=== PATIENT | male | born 1955 | race Caucasian/White ===

== ENCOUNTER 2018-03-13 18:24 | Outpatient (REF) | payer OTHER, MEDICARE, SELFPAY ==
[2018-03-13 20:33] LABS: Bilirubin Negative (Negative); Blood Negative (Negative); Clarity Clear; Glucose Negative (Negative); Ketones Negative (Negative); Leukocyte Esterase Negative (Negative); Nitrite Negative (Negative); Urobilinogen 0.2 EU/dL (Up TO 0.2)
== END 2018-03-13 18:44 ==
LOC: NCHCN 18:24
PROVIDERS: PCP Nurse Practitioner; Visit Provider Nurse Practitioner Family
DX: R31.0 Gross hematuria (principal)
CPT/HCPCS: 81003

== ENCOUNTER 2018-04-27 11:56 | Outpatient (REF) | payer OTHER, SELFPAY ==
[2018-04-27 13:40] LABS: ALT 31 U/L (12-78); AST 29 U/L (15-37); Albumin 3.9 g/dL (3.4-5.0); Alkaline Phosphatase 62 U/L (46-116); Anion Gap 9.1 mmol/L (3-11); BUN 23 mg/dL (7-18); Bilirubin, Total 0.5 mg/dL (0.2-1.0); CO2 26.9 mmol/L (21.0-32.0); CREATININE 1.21 mg/dL (0.70-1.30); Calcium 9.8 mg/dL (8.5-10.1); Chloride 104 mmol/L (98-107); Cholesterol 145 mg/dL (50-200); Glucose 126 mg/dL (70-100); HDL Cholesterol 43 mg/dL (40-60); LDL CHOLESTEROL 92 mg/dL (<100); Potassium 4.1 mmol/L (3.5-5.1); Sodium 140 mmol/L (136-145); Total Protein 6.9 g/dL (6.4-8.2); Triglyceride 87 mg/dL (30-150)
== END 2018-04-27 12:16 ==
LOC: NCHCN 11:56
PROVIDERS: PCP Nurse Practitioner; Visit Provider Nurse Practitioner
DX: I10 Essential (primary) hypertension (principal); E78.5 Hyperlipidemia, unspecified
CPT/HCPCS: 80053; 80061; 83721

== ENCOUNTER → 2019-01-17 15:01 | Outpatient (BNVA) | payer MEDICARE, OTHER, SELFPAY | PROVIDERS: PCP Nurse Practitioner; Visit Provider Psychiatry & Neurology Neurology | DX: G62.89 Other specified polyneuropathies (principal); I10 Essential (primary) hypertension | CPT/HCPCS: 99213 ==

== ENCOUNTER 2019-04-24 09:54 | Outpatient (REF) | payer MEDICARE, OTHER, SELFPAY ==
[2019-04-24 12:45] LABS: ALT 30 U/L (16-63); AST 22 U/L (15-37); Albumin 3.9 g/dL (3.4-5.0); Alkaline Phosphatase 62 U/L (46-116); Anion Gap 11.2 mmol/L (3-11); BUN 18 mg/dL (7-18); Bilirubin, Total 0.5 mg/dL (0.2-1.0); CO2 26.8 mmol/L (21.0-32.0); CREATININE 1.17 mg/dL (0.70-1.30); Calcium 9.8 mg/dL (8.5-10.1); Calculated LDL 102 mg/dL; Chloride 106 mmol/L (98-107); Cholesterol 170 mg/dL (<200); Glucose 113 mg/dL (74-106); HDL Cholesterol 44 mg/dL (40-60); Potassium 4.3 mmol/L (3.5-5.1); Sodium 144 mmol/L (136-145); Total Protein 6.9 g/dL (6.4-8.2); Triglyceride 123 mg/dL (<150)
[2019-04-24 13:01] LABS: Hemoglobin A1C 5.7 % (4.5-6.2)
[2019-04-25 16:06] LABS: PSA, Screening 3.5 ng/mL (0.0-4.5)
== END 2019-04-24 10:14 ==
LOC: NCHCN 09:54
PROVIDERS: PCP Nurse Practitioner; Visit Provider Nurse Practitioner
DX: I10 Essential (primary) hypertension (principal); E78.5 Hyperlipidemia, unspecified; Z13.1 Encounter for screening for diabetes mellitus; Z12.5 Encounter for screening for malignant neoplasm of prostate; F32.9 Major depressive disorder, single episode, unspecified; R73.09 Other abnormal glucose; L40.8 Other psoriasis
CPT/HCPCS: 80053; 80061; 82306; 84153; 83036

== ENCOUNTER 2019-04-24 12:07 | Outpatient (CLI) | payer MEDICARE, OTHER, SELFPAY ==
--- NOTE | 2019-04-24 09:49 | DI.RAD_ITS ---
EXAM: XR CERVICAL SPINE COMP 4-5V INDICATION: CERVICALGIA, M54.2. COMPARISON: No exams were available for comparison TECHNIQUE: 2D digital imaging was performed. FINDINGS: The odontoid is intact. The lateral masses are well aligned. Moderate degenerative changes are pres ent throughout the cervical spine. The findings are most marked at C4-5, C5-6 and C6-C7. There are degenerative changes of the facets throughout the cervical spine. There is moderate narrowing of the left neural foramen at C3-C4. There is narrowing of the neural foramen on the right at C6-C7. No a cute fracture or subluxation is seen in the cervical spine. The prevertebral soft tissues are unrema rkable. Soft tissue calcifications are seen in the neck most consistent with atherosclerosis. IMPRESSION: Moderate degenerative changes in the cervical spine.
== END 2019-04-24 12:27 ==
PROVIDERS: PCP Nurse Practitioner; Visit Provider Nurse Practitioner
DX: M54.2 Cervicalgia (principal); M50.321 Other cervical disc degeneration at C4-C5 level; M50.322 Other cervical disc degeneration at C5-C6 level; M50.323 Other cervical disc degeneration at C6-C7 level; M47.812 Spondylosis without myelopathy or radiculopathy, cervical region
CPT/HCPCS: 72050

== ENCOUNTER 2019-08-07 07:16 | Outpatient (CLI) | payer MEDICARE, OTHER, SELFPAY ==
--- NOTE | 2019-08-07 10:33 | DI.RAD_ITS ---
EXAM: RF BARIUM SWALLOW CLINICAL HISTORY: GASTROINTESTINAL BLEED, K92.2, DYSPHAGIA, R13.10 TECHNIQUE: 2D and realtime digital imaging was performed. CONTRAST MATERIAL: Oral barium contrast was administered. COMPARISON: No exams were available for comparison FINDINGS: CHEST X-RAY: The heart and pulmonary vasculature are within normal limits. The lungs are clear. No pl eural effusion or pneumothorax is present. The bones are within normal limits fo the patient's age. N ote is made of a nerve stimulator device. There are surgical clips at the gastroesophageal junction. ESOPHAGRAM: The esophagus is patent with no evidence for erosions, fold thickening, strictures, or ma sses. With regards to the motility, there is a normal primary stripping wave. No tertiary contraction s were noted. There is no gastroesophageal reflux. Postsurgical changes of a fundoplication are pres ent. IMPRESSION: No evidence of gastroesophageal reflux or hiatal hernia. Postsurgical changes at the gastroesophageal junction.
[2019-08-07] MEDS: Barium Sulfate 60% W/V 355 ML BTL PO (10:39)
== END 2019-08-07 07:36 ==
PROVIDERS: PCP Nurse Practitioner; Visit Provider Internal Medicine Gastroenterology
DX: K92.2 Gastrointestinal hemorrhage, unspecified (principal); R13.19 Other dysphagia
CPT/HCPCS: 74221; J3490

== ENCOUNTER 2020-01-09 15:07 | Emergency (ER) | payer MEDICARE, OTHER, SELFPAY ==
[2020-01-09 15:10] VITALS: BP 169/76; PULSE 110; TEMP 36.6; O2SAT 98
--- NOTE | 2020-01-09 15:15 | ED.GENADUL_ITS ---
Discharge Plan Disposition Patient Disposition: HOME Condition: Stable Discharge Details Chief Complaint: Laceration Clinical Impression: Finger laceration Primary Care Provider: Mady Rivas ED Provider: Michelle Rosales Home Meds and New Rx's Prescriptions: Continued omeprazole 20 mg capsule,delayed release(DR/EC) 40 mg PO DAILY RF: 0 multivitamin [Daily Multi-Vitamin] 1 EACH tablet 1 ea PO DAILY RF: 0 amoxicillin 500 MG capsule 2,000 mg PO PRN DENTAL RF: 0 magnesium oxide 400 MG tablet 400 mg PO DAILY RF: 0 Glucosamine Complex-MSM 1 EACH capsule 1 ea PO DAILY RF: 0 cholecalciferol (vitamin D3) 2,000 UNIT tablet 2,000 unit PO DAILY RF: 0 calcium carbonate-vitamin D3 1 EACH capsule 1 ea PO DAILY RF: 0 cyanocobalamin (vitamin B-12) 2,500 MCG tablet,chewable 1,000 mcg PO DAILY RF: 0 MEDICAL MARIJUANA Inhalation PRN RF: 0 thiamine HCl (vitamin B1) [Vitamin B-1] 100 MG tablet 100 mg PO DAILY RF: 0 lovastatin 40 MG tablet 40 mg PO HS RF: 0 acyclovir 400 MG tablet 800 mg PO DAILY RF: 0 triamcinolone acetonide 15 GM ointment 1 ea Topical DIRECTED PRNRF: 0 hydrochlorothiazide 25 MG tablet 12.5 mg PO DAILY RF: 0 celecoxib [Celebrex] 400 MG capsule 400 mg PO DAILY RF: 0 duloxetine [Cymbalta] 60 MG capsule,delayed release(DR/EC) 60 mg PO BID RF: 0 aspirin [Aspir-81] 81 mg Tablet,Delayed Release (Dr/Ec) 81 mg PO DAILY RF: 0 sildenafil 100 mg tablet 100 mg PO DIRECTED PRNRF: 0 tamsulosin 0.4 mg capsule 0.4 mg PO DAILY RF: 0 quetiapine [Seroquel] 50 MG tablet 50 mg PO HS RF: 0 Discharge Instructions Instructions: Finger Laceration (ED) Additional Instructions: Keep wound clean and dry. Cover wound with bandage if risk of contamination. Otherwise you can keep the wound open to air if resting at home to allow edges to dry and heal. Return to the emergency department in 7 days for suture removal. You can follow-up with your primary care doctor or return to the emergency department anytime if you develop any worsening or new concerning symptoms such as fever, increased pain, redness or swelling. Discharge Data Discharge Date/Time-TO BE ENTERED AT DEPARTURE: 01/09/20 15:54 Discharge Physician: Michelle Rosales Medical Decision Making 64-year-old male presents with left second finger laceration after pinched within his lawnmower 3 hours ago at home. Tetanus up-to-date. He has a 2 cm straight linear laceration noted on volar aspect of left second f yomi near lateral proximal aspect near base of finger. No bony deformity. Patient offered x-ray but declined stating he feels that this is just a skin laceration. Wound irrigated well and explored and no evidence of foreign body, tendon or neurovascular injury. Area anesthetized with 5 cc 1% lidocaine without epinephrine. 3 nylon 5-0 sutures placed. Wound covered with bacitracin and dressing. Advised to return to the ED in 7 days for suture removal. Usual and customary return precautions given prior to discharge. Medical Records Medical records reviewed: Yes I reviewed the patient's medical records. HPI General Mode of arrival: ambulatory . Date/Time Provider Initiated Documentation: 01/09/20 15:08 . Limitations to Documentation: no limitations . Information obtained by: patient . HPI Narrative: Patient is a 64-year-old male presents with left second finger laceration after his finger was pinched within his lawnmower 3 hours ago at home. He states he pulled his finger back and it caused the laceration. He denies any bony injury or pain. Tetanus up-to-date 2018. Related Data Home Medications Medication Instructions Recorded Confirmed acyclovir 800 mg PO DAILY 09/13/12 01/09/20 celecoxib [Celebrex] 400 mg PO DAILY 09/13/12 01/09/20 duloxetine [Cymbalta] 60 mg PO BID 09/13/12 01/09/20 hydrochlorothiazide 12.5 mg PO DAILY 09/13/12 01/09/20 lovastatin 40 mg PO HS 09/13/12 01/09/20 triamcinolone acetonide 1 ea TOPICAL DIRECTED PRN 09/13/12 01/09/20 Glucosamine Complex-MSM 1 ea PO DAILY 01/16/18 01/09/20 amoxicillin 2,000 mg PO PRN DENTAL tab-cap 01/16/18 01/09/20 calcium carbonate-vitamin D3 1 ea PO DAILY 01/16/18 01/09/20 cholecalciferol (vitamin D3) 2,000 unit PO DAILY 01/16/18 01/09/20 cyanocobalamin (vitamin B-12) 1,000 mcg PO DAILY tab.chew 01/16/18 01/09/20 magnesium oxide 400 mg PO DAILY 01/16/18 01/09/20 multivitamin [Daily Multi-Vitamin] 1 ea PO DAILY 01/16/18 01/09/20 thiamine HCl (vitamin B1) [Vitamin 100 mg PO DAILY 01/16/18 01/09/20 B-1] omeprazole 20 mg capsule,delayed 40 mg PO DAILY 06/11/19 01/09/20 release aspirin [Aspir-81] 81 mg PO DAILY 01/09/20 01/09/20 quetiapine [Seroquel] 50 mg PO HS 01/09/20 01/09/20 sildenafil 100 mg PO DIRECTED PRN 01/09/20 01/09/20 tamsulosin 0.4 mg PO DAILY 01/09/20 01/09/20 Allergies Allergy/AdvReac Type Severity Reaction Status Date / Time gluten AdvReac Intermediate stomach Unverified 06/11/19 08:46 upset,pain General Stated Complaint: Laceration MARILYNN: 4 Review of Systems All systems reviewed & are unremarkable except as noted in HPI and below PFSH Medical History (Updated 01/09/20 @ 15:46 by Michelle Rosales DO) Celiac disease (Acute) Chronic low back pain (Acute) Chronic pain Depression (Chronic) Hypercholesterolemia Hypertension Osteoarthritis (Chronic) Peripheral neuropathy (Acute 04/15/14) Personal history of colonic polyps (Acute 01/04/13) Psoriasis (Chronic) Surgical History Hemorrhoidal Banding Hemorrhoidectomy MULTIPLE BACK OPERATIONS NERVE STIMULATOR IMPLANTATION S/P laparoscopic fundoplication (Acute) Total replacement of hip BILATERAL Family History Mother No problems noted. Father No problems noted. Sister No problems noted. Sister No problems noted. Sister No problems noted. Sister No problems noted. Brother No problems noted. Brother No problems noted. Social History (Updated 06/11/19 @ 08:50 by Neda Negron RN) Smoking/Tobacco Use Status: Former Tobacco Use Alcohol Intake: never Drug use: Daily Substance use type: marijuana Household members: spouse Housing: house Number of Children: 3 current occupation: Disabled. Formerly in construction. What is your relationship status?: Panel score (0-1 are the most socially isolated patients): 1 What type of physical activity do you participate in: additional Details: pt tries to stay active Do you feel safe at home: Yes Do you feel safe in your relationship?: Yes Additional Social history: He is raising his grandson (born in 2017). Exam Const General: cooperative, healthy appearing and no acute distress HENMT Head: normal to inspection Mouth: oral mucosae normal Eyes General: appearance normal, both eyes and all related structures Neck Neck: normal visual inspection Resp Effort & Inspection: normal respiratory effort and able to speak in complete sentences Cardio Rate: regular rate Skin General skin exam: no rashes or lesions noted Neuro General: patient alert, patient awake, patient oriented x3 and no focal motor deficits Motor: muscle tone normal throughout Sensory Exam: no sensory deficits noted Extrem General: full ROM and capillary refill normal Hand/finger images: 1. 2 cm straight laceration noted to the lateral aspect of the base of left second finger. There is surrounding ecchymosis but no bony deformity. No tenderness palpation of the digit. There is no edema, erythema or active bleeding. Psych Appearance: grossly normal Affect: normal affect Course Vital Signs Vital signs: Vital Signs Temperature 97.9 F 01/09/20 15:10 Pulse 110 H 01/09/20 15:10 Blood Pressure 169/76 H 01/09/20 15:10 Pulse Oximetry 98 01/09/20 15:10 Temperature 97.9 F 01/09/20 15:10 Temperature Source Temporal Artery Scan 01/09/20 15:10 Pulse 110 H 01/09/20 15:10 Respiratory Effort Non-Labored 01/09/20 15:13 Blood Pressure 169/76 H 01/09/20 15:10 Blood Pressure Position Sitting 01/09/20 15:10 Pulse Oximetry 98 01/09/20 15:10 Oxygen Delivery Method Room Air 01/09/20 15:10 Oxygen Flow Rate 0 01/09/20 15:10 Pain Level 1 01/09/20 15:10 Procedures Laceration Laceration 1: Site: hand Side (If applicable): left Size (cm): 2 Description: linear Depth: simple, single layer Local Anesthetic: Lidocaine 1% and with Epi Amount of anesthesia used (mL): 5 Pre-repair: wound explored, irrigated extensively and deep structures intact Skin layer closed with: nylon Size (cm): 5-0 Number of sutures: 3 Technique: simple, interrupted
== END 2020-01-09 15:54 | disposition home or self-care (01) ==
PROVIDERS: Emergency Provider Physician Assistant; PCP Nurse Practitioner
DX: S61.211A Laceration without foreign body of left index finger without damage to nail, initial encounter (principal); W28.XXXA Contact with powered lawn mower, initial encounter
CPT/HCPCS: 12001

== ENCOUNTER 2020-01-10 18:18 | Emergency (ER) | payer MEDICARE, OTHER, SELFPAY ==
--- NOTE | 2020-01-10 18:22 | ED.GENADUL_ITS ---
Discharge Plan Disposition Patient Disposition: HOME Condition: Stable Discharge Details Chief Complaint: Laceration Clinical Impression: Visit for wound check Primary Care Provider: Mady Rivas ED Provider: Michelle Rosales Home Meds and New Rx's Prescriptions: Continued omeprazole 20 mg capsule,delayed release(DR/EC) 40 mg PO DAILY RF: 0 multivitamin [Daily Multi-Vitamin] 1 EACH tablet 1 ea PO DAILY RF: 0 amoxicillin 500 MG capsule 2,000 mg PO PRN DENTAL RF: 0 magnesium oxide 400 MG tablet 400 mg PO DAILY RF: 0 Glucosamine Complex-MSM 1 EACH capsule 1 ea PO DAILY RF: 0 cholecalciferol (vitamin D3) 2,000 UNIT tablet 2,000 unit PO DAILY RF: 0 calcium carbonate-vitamin D3 1 EACH capsule 1 ea PO DAILY RF: 0 cyanocobalamin (vitamin B-12) 2,500 MCG tablet,chewable 1,000 mcg PO DAILY RF: 0 MEDICAL MARIJUANA Inhalation PRN RF: 0 thiamine HCl (vitamin B1) [Vitamin B-1] 100 MG tablet 100 mg PO DAILY RF: 0 lovastatin 40 MG tablet 40 mg PO HS RF: 0 acyclovir 400 MG tablet 800 mg PO DAILY RF: 0 triamcinolone acetonide 15 GM ointment 1 ea Topical DIRECTED PRNRF: 0 hydrochlorothiazide 25 MG tablet 12.5 mg PO DAILY RF: 0 celecoxib [Celebrex] 400 MG capsule 400 mg PO DAILY RF: 0 duloxetine [Cymbalta] 60 MG capsule,delayed release(DR/EC) 60 mg PO BID RF: 0 aspirin [Aspir-81] 81 mg Tablet,Delayed Release (Dr/Ec) 81 mg PO DAILY RF: 0 sildenafil 100 mg tablet 100 mg PO DIRECTED PRNRF: 0 tamsulosin 0.4 mg capsule 0.4 mg PO DAILY RF: 0 quetiapine [Seroquel] 50 MG tablet 50 mg PO HS RF: 0 Discharge Instructions Instructions: Care For Your Stitches (ED), Acute Wound Care (ED) Additional Instructions: Keep wound clean and dry and covered. Do not remove the Steri-Strips. Return to the ED in 7 days for suture removal. Take antibiotics until finished. Return immediately to the emergency department if you develop any worsening or new concerning symptoms. Discharge Data Discharge Physician: Michelle Rosales Medical Decision Making 64-year-old male 1 day status post #3 suture placement to left second finger presents for wound check after 1 suture inadvertently removed when he took his dressing off today. [address]. Wound appears to have surrounding ecchymosis which was evident yesterday but no evidence of cellulitis. There is approximately 1 to 2 mm of opening where suture had been in place. Discussed with patient that as the wound is over 24 hours old, will not replace suture. Wound was cleaned and a Steri-Strip was placed on the distal aspect and covered with gauze dressing and a finger splint to keep the finger extended. Patient states he is taking his antibiotics as prescribed. Advised to return to the ED in 7 days for suture removal. Advised on proper wound care. Advised to not remove the Steri-Strip. HPI General Mode of arrival: ambulatory . Date/Time Provider Initiated Documentation: 01/10/20 18:20 . Limitations to Documentation: no limitations . Information obtained by: patient . HPI Narrative: Patient is a 64-year-old male who presents for evaluation of his left second finger laceration after he took off his dressing today and noted 1 of the sutures came with the dressing. He had 3 sutures placed yesterday and now only has 2 remaining. He is here for a wound check. His also called the ER today stating that she was concerned about chance of infection with his hand laceration as he has a history of hip replacement. A prescription for Keflex was called into his local pharmacy which she started taking today. He denies any known fever. He denies any new injury. Related Data Home Medications Medication Instructions Recorded Confirmed acyclovir 800 mg PO DAILY 09/13/12 01/10/20 celecoxib [Celebrex] 400 mg PO DAILY 09/13/12 01/10/20 duloxetine [Cymbalta] 60 mg PO BID 09/13/12 01/10/20 hydrochlorothiazide 12.5 mg PO DAILY 09/13/12 01/10/20 lovastatin 40 mg PO HS 09/13/12 01/10/20 triamcinolone acetonide 1 ea TOPICAL DIRECTED PRN 09/13/12 01/10/20 Glucosamine Complex-MSM 1 ea PO DAILY 01/16/18 01/09/20 amoxicillin 2,000 mg PO PRN DENTAL tab-cap 01/16/18 01/10/20 calcium carbonate-vitamin D3 1 ea PO DAILY 01/16/18 01/10/20 cholecalciferol (vitamin D3) 2,000 unit PO DAILY 01/16/18 01/10/20 cyanocobalamin (vitamin B-12) 1,000 mcg PO DAILY tab.chew 01/16/18 01/10/20 magnesium oxide 400 mg PO DAILY 01/16/18 01/10/20 multivitamin [Daily Multi-Vitamin] 1 ea PO DAILY 01/16/18 01/10/20 thiamine HCl (vitamin B1) [Vitamin 100 mg PO DAILY 01/16/18 01/10/20 B-1] omeprazole 20 mg capsule,delayed 40 mg PO DAILY 06/11/19 01/10/20 release aspirin [Aspir-81] 81 mg PO DAILY 01/09/20 01/10/20 quetiapine [Seroquel] 50 mg PO HS 01/09/20 01/10/20 sildenafil 100 mg PO DIRECTED PRN 01/09/20 01/10/20 tamsulosin 0.4 mg PO DAILY 01/09/20 01/10/20 Allergies Allergy/AdvReac Type Severity Reaction Status Date / Time gluten AdvReac Intermediate stomach Unverified 01/10/20 18:27 upset,pain General MARILYNN: 4 Review of Systems All systems reviewed & are unremarkable except as noted in HPI and below PFSH Medical History (Updated 01/10/20 @ 18:47 by Michelle Rosales DO) Celiac disease (Acute) Chronic low back pain (Acute) Chronic pain Depression (Chronic) Hypercholesterolemia Hypertension Osteoarthritis (Chronic) Peripheral neuropathy (Acute 04/15/14) Personal history of colonic polyps (Acute 01/04/13) Psoriasis (Chronic) Surgical History Hemorrhoidal Banding Hemorrhoidectomy MULTIPLE BACK OPERATIONS NERVE STIMULATOR IMPLANTATION S/P laparoscopic fundoplication (Acute) Total replacement of hip BILATERAL Family History Mother No problems noted. Father No problems noted. Sister No problems noted. Sister No problems noted. Sister No problems noted. Sister No problems noted. Brother No problems noted. Brother No problems noted. Social History (Updated 06/11/19 @ 08:50 by Neda Negron RN) Smoking/Tobacco Use Status: Former Tobacco Use Alcohol Intake: never Drug use: Daily Substance use type: marijuana Household members: spouse Housing: house Number of Children: 3 current occupation: Disabled. Formerly in construction. What is your relationship status?: Panel score (0-1 are the most socially isolated patients): 1 What type of physical activity do you participate in: additional Details: pt tries to stay active Do you feel safe at home: Yes Do you feel safe in your relationship?: Yes Additional Social history: He is raising his grandson (born in 2017). Exam Const General: cooperative, healthy appearing and no acute distress HENMT Head: normal to inspection Mouth: oral mucosae normal Eyes General: appearance normal, both eyes and all related structures Neck Neck: normal visual inspection Resp Effort & Inspection: normal respiratory effort and able to speak in complete sentences Cardio Rate: regular rate Skin General skin exam: no rashes or lesions noted Neuro General: patient alert, patient awake and patient oriented x3 Motor: muscle tone normal throughout Extrem Hand/finger images: 1. 2 cm straight laceration with [address] on proximal aspect. The distal end of the laceration is open approximately 1-2 mm where the third suture had been in place. Psych Appearance: grossly normal Affect: normal affect
[2020-01-10 18:23] VITALS: BP 156/78; PULSE 97; TEMP 36.3; O2SAT 97
--- NOTE | 2020-01-10 18:54 | NUR.NOTE ---
Left index finger cleaned. Three sterile strips and finger brace placed finger.
== END 2020-01-10 19:05 | disposition home or self-care (01) ==
PROVIDERS: Emergency Provider Physician Assistant; PCP Nurse Practitioner
DX: S61.211A Laceration without foreign body of left index finger without damage to nail, initial encounter (principal); T81.33XA Disruption of traumatic injury wound repair, initial encounter; W28.XXXA Contact with powered lawn mower, initial encounter; I10 Essential (primary) hypertension

== ENCOUNTER → 2020-01-14 09:38 | Outpatient (BNVA) | payer MEDICARE, OTHER, SELFPAY | PROVIDERS: PCP Nurse Practitioner; Visit Provider Psychiatry & Neurology Neurology | DX: G62.89 Other specified polyneuropathies (principal); I10 Essential (primary) hypertension | CPT/HCPCS: 99213 ==

== ENCOUNTER 2020-01-21 09:34 | Outpatient (REF) | payer MEDICARE, OTHER, SELFPAY ==
[2020-01-22 18:39] LABS: PSA, Screening 3.2 ng/mL (0.0-4.5)
== END 2020-01-21 09:54 ==
LOC: NCHCN 09:34
PROVIDERS: PCP Nurse Practitioner; Visit Provider Nurse Practitioner
DX: Z12.5 Encounter for screening for malignant neoplasm of prostate (principal); Z87.898 Personal history of other specified conditions
CPT/HCPCS: 84153

== ENCOUNTER 2020-04-21 17:22 | Outpatient (REF) | payer MEDICARE, OTHER, SELFPAY ==
[2020-04-21 19:45] LABS: ALT 31 U/L (16-63); AST 27 U/L (15-37); Albumin 4.3 g/dL (3.4-5.0); Alkaline Phosphatase 58 U/L (46-116); Anion Gap 8.2 mmol/L (3-11); BUN 16 mg/dL (7-18); Bilirubin, Total 0.5 mg/dL (0.2-1.0); CO2 25.8 mmol/L (21.0-32.0); CREATININE 1.15 mg/dL (0.70-1.30); Calcium 9.5 mg/dL (8.5-10.1); Calculated LDL 110 mg/dL (<100); Chloride 107 mmol/L (98-107); Cholesterol 181 mg/dL (<200); Glucose 89 mg/dL (74-106); HDL Cholesterol 44 mg/dL (40-60); Potassium 3.8 mmol/L (3.5-5.1); Sodium 141 mmol/L (136-145); Total Protein 7.3 g/dL (6.4-8.2); Triglyceride 136 mg/dL (<150)
[2020-04-21 20:12] LABS: Hemoglobin A1C 5.7 % (<5.7)
== END 2020-04-21 17:42 ==
LOC: NCHCN 17:22
PROVIDERS: PCP Nurse Practitioner; Visit Provider Physician Assistant
DX: I10 Essential (primary) hypertension (principal); E78.5 Hyperlipidemia, unspecified; R73.03 Prediabetes
CPT/HCPCS: 80053; 80061; 83036

== ENCOUNTER 2020-06-13 01:51 | Outpatient (CLI) | payer MEDICARE, SELFPAY ==
[2020-06-14 17:11] LABS: COVID-19 RT-PCR Result NEGATIVE (Negative)
== END 2020-06-13 02:11 ==
PROVIDERS: PCP Nurse Practitioner; Visit Provider Nurse Practitioner
DX: Z11.52 Encounter for screening for COVID-19 (principal); Z01.818 Encounter for other preprocedural examination
CPT/HCPCS: U0003

== ENCOUNTER 2020-06-14 08:44 | Emergency (ER) | payer MEDICARE, OTHER, SELFPAY ==
[2020-06-14 08:47] VITALS: BP 132/75; PULSE 78; RESP 18; TEMP 36.3; O2SAT 100
--- NOTE | 2020-06-14 08:52 | ED.GENADUL_ITS ---
Discharge Plan Disposition Patient Disposition: HOME Condition: Good Discharge Details Clinical Impression: Injury of tendon of biceps Primary Care Provider: Mady Rivas ED Provider: Geraldine Burton Home Meds and New Rx's Prescriptions: Continued aspirin 81 mg tablet 81 mg PO DAILY RF: 0 omeprazole 20 mg capsule,delayed release(DR/EC) 40 mg PO DAILY RF: 0 multivitamin [Daily Multi-Vitamin] 1 EACH tablet 1 ea PO DAILY RF: 0 amoxicillin 500 MG capsule 2,000 mg PO PRN DENTAL RF: 0 magnesium oxide 400 MG tablet 400 mg PO DAILY RF: 0 Glucosamine Complex-MSM 1 EACH capsule 1 ea PO DAILY RF: 0 cholecalciferol (vitamin D3) 2,000 UNIT tablet 2,000 unit PO DAILY RF: 0 calcium carbonate-vitamin D3 1 EACH capsule 1 ea PO DAILY RF: 0 cyanocobalamin (vitamin B-12) 2,500 MCG tablet,chewable 1,000 mcg PO DAILY RF: 0 MEDICAL MARIJUANA Inhalation PRN RF: 0 thiamine HCl (vitamin B1) [Vitamin B-1] 100 MG tablet 100 mg PO DAILY RF: 0 lovastatin 40 MG tablet 40 mg PO HS RF: 0 acyclovir 400 MG tablet 800 mg PO DAILY RF: 0 triamcinolone acetonide 15 GM ointment 1 ea Topical DIRECTED PRNRF: 0 hydrochlorothiazide 25 MG tablet 12.5 mg PO DAILY RF: 0 celecoxib [Celebrex] 400 MG capsule 400 mg PO DAILY RF: 0 duloxetine [Cymbalta] 60 MG capsule,delayed release(DR/EC) 60 mg PO BID RF: 0 aspirin [Aspir-81] 81 mg Tablet,Delayed Release (Dr/Ec) 81 mg PO DAILY RF: 0 sildenafil 100 mg tablet 100 mg PO DIRECTED PRNRF: 0 tamsulosin 0.4 mg capsule 0.4 mg PO DAILY RF: 0 quetiapine [Seroquel] 50 MG tablet 50 mg PO HS RF: 0 Discharge Instructions Instructions: Tendon Rupture (ED) Additional Instructions: I am concerned for a partial tendon rupture of your biceps. Please avoid heavy lifting. I will refer you to orthopedic. Please follow-up after your surgical intervention next week. If you develop any fever/chills, increased pain or other new/worsening symptoms please seek care urgently once again. You may use Tylenol and/or ibuprofen as needed for discomfort. May also use Lidoderm patches, these are available [id number]. Referrals: Mady Rivas [Primary Care Provider] - Nick Romero MD [ [facility] STAFF PHYSICIAN] - Medical Decision Making Patient is a pleasant 64-year-old [id number] male presenting today with chief complaint of left upper arm pain. He reports that yesterday he was lifting a large drum, states that he gets this frequently, and testing of her bank. He reports that when doing so he felt a sudden onset of sharp pain and associated pop. Had not had pain in this area previously. Denies any numbness or tingling. States the pain is persistent indicates the upper medial aspect of the bicep is area of maximal tenderness. Also notes pain in the shoulder particularly with abduction of the arm. On exam, patient has swelling, ecchymosis and discomfort again, along the medial aspect of the bicep. He is neurovascularly intact with no evidence of axillary nerve dysfunction. He has full range of motion of his shoulder, elbow, wrist, hand. However, he does have pain with abduction of the shoulder that is fairly focal over the coracoid process. He does not have notable Gonzalo deformity but I am wondering if he may have ruptured the short head of the biceps as he does have palpable swelling of this area that does limit my full exam of the body. She does have this pain over the coracoid, will obtain x-rays to evaluate for potential fracture although I find this less likely. Will give Lidoderm patch to help with discomfort. Patient is in agreement FINDINGS: Bones/joints: Normal. Soft tissues: Normal. IMPRESSION: No acute findings. Discussed these findings with the patient. Encourage rest, ice, elevation. Tylenol and/or ibuprofen as needed for discomfort. Lidoderm patch will be applied. Advised we will continue with these. We discussed activities that he should avoid. We discussed that at this point and concern for either partial left shoulder or short head rupture. We will follow up with orthopedics. Patient scheduled to have pain stimulator battery change next week. Advised to follow-up after that as he is quarantined after his Covid test tomorrow. Strict return precautions were discussed. All his questions and concerns were addressed and he has been explained. HPI General Mode of arrival: ambulatory . Date/Time Provider Initiated Documentation: 06/14/20 08:51 . Limitations to Documentation: no limitations . Information obtained by: patient and RN notes reviewed . History of Present Illness 64 year old M presents to the emergency department with the chief complaint of left biceps and shoulder pain, described as moderate, with intensity rated at 4. Quality is described as aching, and is localized to the left and upper extremity. Patient reports no radiation. Patient started experiencing this day(s) (1) and it has been constant. Immobilization improves symptom(s), Movement worsens symptoms . Patient notes no other symptoms.. Patient did receive the following treatments prior to arrival, none Related Data Home Medications Medication Instructions Recorded Confirmed acyclovir 800 mg PO DAILY 09/13/12 06/14/20 celecoxib [Celebrex] 400 mg PO DAILY 09/13/12 06/14/20 duloxetine [Cymbalta] 60 mg PO BID 09/13/12 06/14/20 hydrochlorothiazide 12.5 mg PO DAILY 09/13/12 06/14/20 lovastatin 40 mg PO HS 09/13/12 06/14/20 triamcinolone acetonide 1 ea TOPICAL DIRECTED PRN 09/13/12 06/14/20 Glucosamine Complex-MSM 1 ea PO DAILY 01/16/18 06/14/20 amoxicillin 2,000 mg PO PRN DENTAL tab-cap 01/16/18 06/14/20 calcium carbonate-vitamin D3 1 ea PO DAILY 01/16/18 06/14/20 cholecalciferol (vitamin D3) 2,000 unit PO DAILY 01/16/18 06/14/20 cyanocobalamin (vitamin B-12) 1,000 mcg PO DAILY tab.chew 01/16/18 06/14/20 magnesium oxide 400 mg PO DAILY 01/16/18 06/14/20 multivitamin [Daily Multi-Vitamin] 1 ea PO DAILY 01/16/18 06/14/20 thiamine HCl (vitamin B1) [Vitamin 100 mg PO DAILY 01/16/18 06/14/20 B-1] omeprazole 20 mg capsule,delayed 40 mg PO DAILY 06/11/19 06/14/20 release aspirin [Aspir-81] 81 mg PO DAILY 01/09/20 06/14/20 quetiapine [Seroquel] 50 mg PO HS 01/09/20 06/14/20 sildenafil 100 mg PO DIRECTED PRN 01/09/20 06/14/20 tamsulosin 0.4 mg PO DAILY 01/09/20 06/14/20 aspirin 81 mg tablet 81 mg PO DAILY 01/14/20 06/14/20 Allergies Allergy/AdvReac Type Severity Reaction Status Date / Time gluten AdvReac Intermediate stomach Unverified 06/14/20 08:53 upset,pain General Stated Complaint: Orthopedic MARILYNN: 4 Review of Systems Constitutional Constitutional: Reports as per HPI, Denies chills, Denies fever(s), Denies headache(s) and Denies weakness ENT Ears, Nose, Mouth, and Throat: Denies headache(s) Cardiovascular Cardiovascular: Reports as per HPI Respiratory Respiratory: Reports as per HPI and Denies cough Musculoskeletal Musculoskeletal: Reports as per HPI and Denies tingling Integumentary/Breasts Skin/Breast: Reports as per HPI, Denies rash and Denies wounds Neurologic Neurologic: Reports as per HPI, Denies headache(s), Denies tingling, Denies paresthesias and Denies weakness [facility] Medical History (Updated 06/14/20 @ 09:25 by LISSET Rodriguez) Celiac disease Chronic low back pain Chronic pain Depression Hypercholesterolemia Hypertension Osteoarthritis Peripheral neuropathy (04/15/14) Personal history of colonic polyps (01/04/13) Psoriasis Surgical History Hemorrhoidal Banding Hemorrhoidectomy MULTIPLE BACK OPERATIONS NERVE STIMULATOR IMPLANTATION S/P laparoscopic fundoplication Total replacement of hip BILATERAL Family History Mother No problems noted. Father No problems noted. Sister No problems noted. Sister No problems noted. Sister No problems noted. Sister No problems noted. Brother No problems noted. Brother No problems noted. Social History Smoking/Tobacco Use Status: Former Tobacco Use Smoking risk assessment performed?: Yes Alcohol Intake: never Drug use: Daily Substance use type: marijuana Household members: spouse Housing: house Number of Children: 3 current occupation: Disabled. Formerly in construction. What is your relationship status?: Panel score (0-1 are the most socially isolated patients): 1 What type of physical activity do you participate in: additional Details: pt tries to stay active Do you feel safe at home: Yes Do you feel safe in your relationship?: Yes Additional Social history: He is raising his grandson (born in 2017). Exam Const General: cooperative, healthy appearing, comfortable, no acute distress, well developed and well groomed Nutritional Appearance: average body habitus and well nourished Orientation: alert and awake Resp Effort & Inspection: normal respiratory effort, able to speak in complete sentences and no respiratory distress Cardio Rate: regular rate Rhythm: regular rhythm Skin General skin exam: ecchymosis (medial left biceps) Neuro General: patient alert and patient awake Cognition: normal cognition Speech: speech normal Gait: normal gait Motor: muscle tone normal throughout Sensory Exam: no sensory deficits noted Extrem Right upper extremity: normal to inspection Left upper extremity: full ROM, normal capillary refill, shoulder/upper arm Details: inspection abnormal, tenderness Location: over the coracoid process, swelling (medial biceps), axillary nerve sensory function normal, normal ROM and ecchymosis (medial biceps); abnormal ROM, no lacerations, no crepitus and no deformity, elbow/forearm Details: normal to inspection, normal ROM and other (normal hook test); no tenderness, no swelling and no deformity, wrist Details: normal to inspection, normal ROM, normal vascular exam and radial pulse present; no tenderness, no swelling and no deformity and hand Details: normal to inspection, normal capillary refill, neuromotor exam normal and neurosensory exam normal Psych Appearance: grossly normal and well kempt Mental Status: mental status grossly normal Speech and Movement: speech and movement normal Course Vital Signs Vital signs: Vital Signs Temperature 36.3 C L 06/14/20 08:47 Pulse 78 06/14/20 08:47 Respiratory Rate 18 06/14/20 08:47 Blood Pressure 132/75 06/14/20 08:47 Pulse Oximetry 100 06/14/20 08:47 Temperature 36.3 C L 06/14/20 08:47 Temperature Source Temporal Artery Scan 06/14/20 08:47 Pulse 78 06/14/20 08:47 Respiratory Rate 18 06/14/20 08:47 Respiratory Effort Non-Labored 06/14/20 08:51 Blood Pressure 132/75 06/14/20 08:47 Blood Pressure Position Sitting 06/14/20 08:47 Pulse Oximetry 100 06/14/20 08:47 Oxygen Delivery Method Room Air 06/14/20 08:47 Oxygen Flow Rate 0 06/14/20 08:47 Pain Level 4 06/14/20 08:47
--- NOTE | 2020-06-14 09:03 | DI.RAD_ITS ---
EXAM: XR SHOULDER LT COMPLETE 2+V CLINICAL HISTORY: trauma. TECHNIQUE: 2D digital imaging was performed. COMPARISON: No exams were available for comparison FINDINGS: There is no evidence of fracture or dislocation no abnormal soft tissue calcifications. Subacromial space appears unremarkable although there are some degenerative cysts in the humeral head noted later ally. May be related to rotator cuff pathology. In addition, there are degenerative subarticular cy sts in the anterior aspect the humeral head as well as in the posterior aspect of the coracoid proces s. This may also signify possibility of anterior rotator cuff pathology. No osteophytes evident. N o os acromiale. IMPRESSION: Indirect evidence of rotator cuff pathology as described above. If clinically indicated follow-up MR I can be performed. No fractures identified. DATA REPOSITORY: RADIATION DOSE DELIVERED:
--- NOTE | 2020-06-14 09:19 | DI.VRAD_ITS ---
PROCEDURE INFORMATION: Exam: XR Left Shoulder Exam date and time: 06/14/2020 9:14 AM Age: 64 years old Clinical indication: Other: Trauma TECHNIQUE: Imaging protocol: XR Left shoulder. Views: 2 or more views. COMPARISON: No relevant prior studies available. FINDINGS: Bones/joints: Normal. Soft tissues: Normal. IMPRESSION: No acute findings. Dictated and Authenticated by: Sven Montano MD. Ordering:DIRK Chandler MD
[2020-06-14] MEDS: Lidocaine 5% Patch 1 PATCH TP (09:27)
== END 2020-06-14 09:31 | disposition home or self-care (01) ==
PROVIDERS: Emergency Provider Physician Assistant; PCP Nurse Practitioner
DX: S46.212A Strain of muscle, fascia and tendon of other parts of biceps, left arm, initial encounter (principal); X50.0XXA Overexertion from strenuous movement or load, initial encounter; M25.512 Pain in left shoulder; I10 Essential (primary) hypertension
CPT/HCPCS: 99283; 73030

== ENCOUNTER → 2020-07-02 09:06 | Outpatient (BNVA) | payer MEDICARE, OTHER, SELFPAY | PROVIDERS: PCP Nurse Practitioner; Referring Provider Nurse Practitioner; Visit Provider Student in an Organized Health Care Education/Training Program | DX: S46.192A Other injury of muscle, fascia and tendon of long head of biceps, left arm, initial encounter (principal); X50.0XXA Overexertion from strenuous movement or load, initial encounter; I10 Essential (primary) hypertension; Z96.82 Presence of neurostimulator | CPT/HCPCS: 99203; 99213 ==

== ENCOUNTER → 2020-11-26 11:23 | Outpatient (BNVA) | payer MEDICARE, OTHER, SELFPAY | PROVIDERS: PCP Nurse Practitioner; Referring Provider Nurse Practitioner; Visit Provider Student in an Organized Health Care Education/Training Program | DX: S46.212D Strain of muscle, fascia and tendon of other parts of biceps, left arm, subsequent encounter (principal); S46.012D Strain of muscle(s) and tendon(s) of the rotator cuff of left shoulder, subsequent encounter; X50.0XXD Overexertion from strenuous movement or load, subsequent encounter; M75.52 Bursitis of left shoulder; M75.42 Impingement syndrome of left shoulder | CPT/HCPCS: 99213 ==

== ENCOUNTER → 2020-12-24 13:38 | Outpatient (BNVA) | payer MEDICARE, OTHER, SELFPAY | PROVIDERS: PCP Nurse Practitioner; Referring Provider Nurse Practitioner; Visit Provider Student in an Organized Health Care Education/Training Program | DX: S46.212D Strain of muscle, fascia and tendon of other parts of biceps, left arm, subsequent encounter (principal); M75.42 Impingement syndrome of left shoulder; M75.52 Bursitis of left shoulder; X50.0XXD Overexertion from strenuous movement or load, subsequent encounter | CPT/HCPCS: 99213 ==

== ENCOUNTER 2021-01-02 15:08 | Outpatient (REF) | payer MEDICARE, OTHER, SELFPAY ==
--- NOTE | 2021-01-02 14:30 | SKI_PTH ---
PATIENT: Dean Latif LOC: [facility] U#:[id number] AGE/SX: 65/M ROOM: RE01/02/[address]: LISSET Davis : 1955 BED: DIS: 01/02/2021 SPEC #: [id number] RECD: 01/05/21 12:16 STATUS: HARINI RELondon #: [id number] DERICK: 01/02/21 14:[address]: Ibrahima Norton DEPT: Surgical Specimen RECD BY: Jessica Riley ENTERED: 01/05/21 12:17 SP TYPE: GABI HASTINGS DR: Mady Rivas Tissues: 1 - SKIN BIOPSY(SHAVE/PUNCH) 2 - SKIN BIOPSY(SHAVE/PUNCH) Procedures: SKIN LEVEL 4 Comments: [id number]
== END 2021-01-02 15:09 | disposition home or self-care (01) ==
LOC: LBN 15:08
PROVIDERS: PCP Nurse Practitioner; Visit Provider Physician Assistant
DX: L82.1 Other seborrheic keratosis (principal); L28.0 Lichen simplex chronicus
CPT/HCPCS: 88305

== ENCOUNTER → 2021-01-08 09:28 | Outpatient (BNVA) | payer MEDICARE, OTHER, SELFPAY | PROVIDERS: PCP Nurse Practitioner; Referring Provider Nurse Practitioner; Visit Provider Psychiatry & Neurology Neurology | DX: G62.89 Other specified polyneuropathies (principal) | CPT/HCPCS: 99213 ==

== ENCOUNTER → 2021-04-01 12:55 | Outpatient (BNVA) | payer MEDICARE, OTHER, SELFPAY | PROVIDERS: PCP Nurse Practitioner; Visit Provider Student in an Organized Health Care Education/Training Program | DX: M75.42 Impingement syndrome of left shoulder (principal); M75.52 Bursitis of left shoulder; S46.212D Strain of muscle, fascia and tendon of other parts of biceps, left arm, subsequent encounter; X58.XXXD Exposure to other specified factors, subsequent encounter | CPT/HCPCS: 99212 ==

== ENCOUNTER 2021-04-14 16:52 | Outpatient (REF) | payer MEDICARE, OTHER, SELFPAY ==
[2021-04-14 17:06] LABS: ALT 28 U/L (16-63); AST 20 U/L (15-37); Albumin 3.7 g/dL (3.4-5.0); Alkaline Phosphatase 66 U/L (46-116); Anion Gap 7.1 mmol/L (3-11); BUN 21 mg/dL (7-18); Bilirubin, Total 0.5 mg/dL (0.2-1.0); CO2 27.9 mmol/L (21.0-32.0); CREATININE 1.3 mg/dL (0.70-1.30); Calcium 9.3 mg/dL (8.5-10.1); Chloride 105 mmol/L (98-107); Estimated GFR 55.06 (mL/min/1.73m2); Glucose 183 mg/dL (74-106); Potassium 4.3 mmol/L (3.5-5.1); Sodium 140 mmol/L (136-145); Total Protein 6.7 g/dL (6.4-8.2)
[2021-04-14 17:18] LABS: Calculated LDL 101 mg/dL (<100); Cholesterol 168 mg/dL (<200); HDL Cholesterol 36 mg/dL (40-60); Triglyceride 156 mg/dL (<150)
[2021-04-14 17:51] LABS: Hemoglobin A1C 5.8 % (<5.7)
== END 2021-04-14 16:53 | disposition home or self-care (01) ==
LOC: NCHCN 16:52
PROVIDERS: PCP Nurse Practitioner; Visit Provider Nurse Practitioner
DX: I10 Essential (primary) hypertension (principal); R73.03 Prediabetes; E78.5 Hyperlipidemia, unspecified
CPT/HCPCS: 80053; 80061; 83036

== ENCOUNTER → 2022-01-07 08:11 | Outpatient (BNVA) | payer MEDICARE, OTHER, SELFPAY | PROVIDERS: PCP Nurse Practitioner; Referring Provider Nurse Practitioner; Visit Provider Psychiatry & Neurology Neurology | DX: G62.89 Other specified polyneuropathies (principal); K90.0 Celiac disease; R20.0 Anesthesia of skin; I95.1 Orthostatic hypotension | CPT/HCPCS: 99214 ==

== ENCOUNTER → 2022-02-10 09:38 | Outpatient (BNVA) | payer MEDICARE, OTHER, SELFPAY | PROVIDERS: PCP Physician Assistant; Referring Provider Physician Assistant; Visit Provider Psychiatry & Neurology Neurology | DX: G56.01 Carpal tunnel syndrome, right upper limb (principal); G56.02 Carpal tunnel syndrome, left upper limb; G62.89 Other specified polyneuropathies; K90.0 Celiac disease; R42 Dizziness and giddiness; I10 Essential (primary) hypertension | CPT/HCPCS: 95909; 99214 ==

== ENCOUNTER → 2022-03-11 11:17 | Outpatient (BNVA) | payer MEDICARE, OTHER, SELFPAY | PROVIDERS: PCP Physician Assistant; Referring Provider Physician Assistant; Visit Provider Student in an Organized Health Care Education/Training Program | DX: G56.01 Carpal tunnel syndrome, right upper limb (principal); G56.02 Carpal tunnel syndrome, left upper limb | CPT/HCPCS: 99213 ==

== ENCOUNTER 2022-03-17 13:10 | Emergency (ER) | payer MEDICARE, OTHER, SELFPAY ==
[2022-03-17] VITALS (32 sets, daily range): BP systolic 117–158; BP diastolic 70–92; PULSE 58–90; RESP 12–23; TEMP 36.2–36.7; O2SAT 97–100
--- NOTE | 2022-03-17 13:00 | RT.EKG_ITS ---
APPROVED REPORT Exam: Resting ECG Reason for Exam: CHEST PAIN Patient Location: E HR:80 bpm ECG Measurements Heart Rate 80 AXIS NC 158 P 30 QRSd 88 QRS 12 QT 345 T 30 QTc 399 Conclusion Sinus rhythm...normal P axis, V-rate 60- 99 Physician: no stemi
[2022-03-17 13:39] LABS: Abs Immature Grans 0.01 10^3/uL (0.0-0.06); Absolute Basophil Count 0.02 10^3/uL (0.0-0.2); Absolute Eosinophil Count 0.08 10^3/uL (0.0-0.7); Absolute Lymphocyte Count 1.73 10^3/uL (1.2-3.4); Absolute Monocyte Count 0.46 10^3/uL (0.1-0.8); Absolute Neutrophil Count 2.72 10^3/uL (1.2-6.7); Basophils % 0.4; Eosinophils % 1.6; HCT 49.2 % (40.0-50.0); HGB 16.8 g/dL (13.5-17.5); Immature Grans % 0.2; Lymphocytes % 34.5; MCH 31.5 pg (27.0-33.0); MCHC 34.1 % (32.0-36.0); MCV 92 fL (80-95); MPV 9.8 fL (8.0-11.0); Monocytes % 9.2; Neutrophils % 54.1; Platelet Count 187 10^3/uL (130-400); RBC 5.33 10^6/uL (4.36-5.78); RDW 13.9 % (11.8-14.1); RDW-SD 47.3 fL; WBC 5.02 10^3/uL (4.4-10.8)
[2022-03-17] MEDS: MORPHine 4 MG/ML SYR IVP (13:42)
[2022-03-17 14:03] LABS: ALT 29 U/L (16-63); AST 27 U/L (15-37); Albumin 4.4 g/dL (3.4-5.0); Alkaline Phosphatase 63 U/L (46-116); Anion Gap 7.7 mmol/L (3-11); BUN 18 mg/dL (7-18); Bilirubin, Total 0.7 mg/dL (0.2-1.0); CO2 29.3 mmol/L (21.0-32.0); CREATININE 1.3 mg/dL (0.70-1.30); Calcium 10.2 mg/dL (8.5-10.1); Chloride 104 mmol/L (98-107); Estimated GFR 59.84 (mL/min/1.73m2); Glucose 99 mg/dL (74-106); Lipase 93 U/L (73-393); Potassium 3.9 mmol/L (3.5-5.1); Sodium 141 mmol/L (136-145); Total Protein 7.9 g/dL (6.4-8.2); Troponin I < 50 ng/L (<or=60)
--- NOTE | 2022-03-17 14:16 | DI.CT_ITS ---
Exam(s) CT THORAX ABDOMEN CTA EXAM: CT THORAX ABDOMEN CTA CLINICAL HISTORY: chest pain left to right. TECHNIQUE: Imaging Protocol: Axial CT angiography was performed with multi-slice acquisition and mu lti-planar and/or 3D reconstructions. CONTRAST MATERIAL: Intravenous: Omnipaque 350 Contrast volume:structured data in ml COMPARISON: No exams were available for comparison FINDINGS: CT angiography of the chest and upper abdomen was performed with intravenous infusion of 100 cc of Om nipaque 350. Note is made of a spinal stimulator in place in the mid thoracic region. The lungs are clear. No pleural effusion. Tracheobronchial tree appears intact. No evidence of pulmonary embolic disease. Thoracic aorta is of normal diameter, no thoracic aortic an eurysm or dissection, major branch vessels appear intact. No mediastinal or hilar adenopathy. Images obtained through the upper abdomen show unremarkable appearance of the visualized portions of the liver, spleen, pancreas, adrenals, and kidneys. Prior gastric surgery noted. Mild small bowel d ilatation noted, no evidence of obstruction. Abdominal aorta appears intact throughout with minimal atheromatous wall calcification. No significa nt stenosis of major arterial branch vessels in the upper abdomen. IMPRESSION: Negative CT angiogram of the chest and upper abdomen . No evidence of pulmonary embolic disease. RADIATION DOSE DELIVERED: 835.16mGy.cm Total DLP 835.16mGy.cm Total DLP !Error CTDIvol DATA REPOSITORY: All CT scans at this facility are submitted to the National Radiology Data Registry (NRDR) Dose Index Registry (DIR) with the [employer] ([employer]). RADIATION OPTIMIZATION: All CT scans at this facility use at least one of these dose optimization te chniques: automated exposure control; mA and/or kV adjustment per patient size (includes targeted exa ms where dose is matched to clinical indication); or iterative reconstruction.
--- NOTE | 2022-03-17 14:21 | ED.GENADUL_ITS ---
Discharge Plan Disposition Patient Disposition: HOME Condition: Good Discharge Details Clinical Impression: Abdominal pain, epigastric Primary Care Provider: Kurt Le ED Provider: Davian De Jesus Home Meds and New Rx's Prescriptions: New dicyclomine 20 mg tablet 20 mg PO BID Qty: 20 0RF No Action omeprazole 20 mg capsule,delayed release(DR/EC) 40 mg PO DAILY multivitamin [Daily Multi-Vitamin] 1 EACH tablet 1 ea PO DAILY amoxicillin 500 MG capsule 2,000 mg PO PRN DENTAL magnesium oxide 400 MG tablet 400 mg PO DAILY Glucosamine Complex-MSM 1 EACH capsule 1 ea PO DAILY cholecalciferol (vitamin D3) 2,000 UNIT tablet 2,000 unit PO DAILY calcium carbonate-vitamin D3 1 EACH capsule 1 ea PO DAILY cyanocobalamin (vitamin B-12) 2,500 MCG tablet,chewable 1,000 mcg PO DAILY MEDICAL MARIJUANA Inhalation PRN 0RF thiamine HCl (vitamin B1) [Vitamin B-1] 100 MG tablet 100 mg PO DAILY lovastatin 40 MG tablet 40 mg PO HS acyclovir 400 MG tablet 800 mg PO DAILY triamcinolone acetonide 15 GM ointment 1 ea Topical DIRECTED PRN hydrochlorothiazide 25 MG tablet 12.5 mg PO DAILY celecoxib [Celebrex] 400 MG capsule 400 mg PO DAILY duloxetine [Cymbalta] 60 MG capsule,delayed release(DR/EC) 60 mg PO BID aspirin [Aspir-81] 81 mg Tablet,Delayed Release (Dr/Ec) 81 mg PO DAILY sildenafil 100 mg tablet 100 mg PO DIRECTED PRN tamsulosin 0.4 mg capsule 0.4 mg PO DAILY quetiapine [Seroquel] 50 MG tablet 50 mg PO HS Discharge Instructions Instructions: Epigastric Pain (ED) Additional Instructions: Please take the Bentyl as needed. Avoid any fatty or greasy foods. Use Pepto- Bismol or Maalox at home as needed. If you notice any worsening of your symptoms, or any new symptoms such as vomiting, diarrhea, fever, chills, shortness of breath, chest pain, numbness, weakness, or fainting , please return immediately to the emergency department for reevaluation. Please follow up with your primary care provider as soon as possible for reassessment and reevaluation. As always, it was a pleasure participating in your medical care today. Referrals: Kurt Le [Primary Care Provider] - Medical Decision Making This is a 66-year-old male with past medical history of carpal tunnel, rotator cuff injury, hypertension, celiac disease, who presents today for evaluation of bilateral chest pain. Patient states that has been present for the last week. It came on gradually and then has continued to worsen. It initially started on the left and has been transitioned to the right. Pain is made worse with movement and breathing. It is focal under the left and right rib. He denies any significant abdominal tenderness but does admit to mild epigastric tenderness. He denies any vomiting or diarrhea. He denies any fever or chills. He denies any trauma. He denies any cough or hemoptysis. He denies any recent long trips, surgeries or procedures. No other complaints at this time. No other modifying factors. Exam demonstrates notably in pain male, with reproducible tenderness over the lower ribs and epigastric region bilaterally. Vital signs appear stable but the patient appears notably uncomfortable. Differential includes cardiac etiology, pancreatitis, less likely gallbladder pathology. Musculoskeletal etiology or pulmonary embolism is of concern. Dissection/aneurysm is also of concern with the patient's disposition. We will evaluate for these etiologies, monitor closely and reassess. 3:19 PM Laboratory work-up is returned notably stable, D-dimer normal. EKG stable. Electrolytes normal. Troponin normal, lipase normal. CT is negative for acute process. There is a notable amount of gas in the stomach and the intestines but no evidence of SBO or volvulus. Patient remained stable. Will give GI cocktail and Bentyl for home use. We will perform repeat troponin, and if this is norm al, I do feel that the patient can be safely discharged home at this time with no evidence of acute life-threatening etiology on assessment exam or current clinical picture. Patient will be signed out to my colleague Michelle Rosales. FINDINGS: CT angiography of the chest and upper abdomen was performed with intravenous infusion of 100 cc of Omnipaque 350. Note is made of a spinal stimulator in place in the mid thoracic region. The lungs are clear. No pleural effusion. Tracheobronchial tree appears intact. No evidence of pulmonary embolic disease. Thoracic aorta is of normal diameter, no thoracic aortic aneurysm or dissection, major branch vessels appear intact. No mediastinal or hilar adenopathy. Images obtained through the upper abdomen show unremarkable appearance of the visualized portions of the liver, spleen, pancreas, adrenals, and kidneys. Prior gastric surgery noted. Mild small bowel dilatation noted, no evidence of obstruction. Abdominal aorta appears intact throughout with minimal atheromatous wall calcification. No significant stenosis of major arterial branch vessels in the upper abdomen. IMPRESSION: Negative CT angiogram of the chest and upper abdomen . No evidence of pulmonary embolic disease. HPI General Date/Time Provider Initiated Documentation: 03/17/22 13:33 . HPI Narrative: This is a 66-year-old male with past medical history of carpal tunnel, rotator cuff injury, hypertension, celiac disease, who presents today for ev aluation of bilateral chest pain. Patient states that has been present for the last week. It came on gradually and then has continued to worsen. It initially started on the left and has been transitioned to the right. Pain is made worse with movement and breathing. It is focal under the left and right rib. He denies any significant abdominal tenderness but does admit to mild epigastric tenderness. He denies any vomiting or diarrhea. He denies any fever or chills. He denies any trauma. He denies any cough or hemoptysis. He denies any recent long trips, surgeries or procedures. No other complaints at this time. No other modifying factors Related Data Home Medications Medication Instructions Recorded Confirmed acyclovir 400 mg tablet 800 mg PO DAILY 09/13/12 03/17/22 celecoxib 400 mg capsule (Celebrex) 400 mg PO DAILY 09/13/12 03/17/22 duloxetine 60 mg capsule,delayed 60 mg PO BID 09/13/12 03/17/22 release (Cymbalta) hydrochlorothiazide 25 mg tablet 12.5 mg PO DAILY 09/13/12 03/17/22 lovastatin 40 mg tablet 40 mg PO HS 09/13/12 03/17/22 triamcinolone acetonide 0.1 % 1 ea topical DIRECTED PRN 09/13/12 03/17/22 topical ointment amoxicillin 500 mg capsule 2,000 mg PO PRN DENTAL 01/16/18 03/17/22 calcium carbonate 600 mg-vitamin 1 ea PO DAILY 01/16/18 03/17/22 D3 10 mcg (400 unit) capsule cholecalciferol (vitamin D3) 50 2,000 unit PO DAILY 01/16/18 03/17/22 mcg (2,000 unit) tablet cyanocobalamin (vitamin B-12) 1,000 mcg PO DAILY 01/16/18 03/17/22 2,500 mcg chewable tablet tarecepsmup-oiy-jjoaidgxo-vitC 1 ea PO DAILY 01/16/18 03/17/22 capsule (Glucosamine Complex-MSM capsule) magnesium oxide 400 mg (241.3 mg 400 mg PO DAILY 01/16/18 03/17/22 magnesium) tablet multivitamin (Daily Multi-Vitamin 1 ea PO DAILY 01/16/18 03/17/22 tablet) thiamine HCl (vitamin B1) 100 mg 100 mg PO DAILY 01/16/18 03/17/22 tablet (Vitamin B-1) omeprazole 20 mg capsule,delayed 40 mg PO DAILY 06/11/19 03/17/22 release aspirin 81 mg tablet,delayed 81 mg PO DAILY 01/09/20 03/17/22 release (Aspir-) quetiapine 50 mg tablet (Seroquel) 50 mg PO HS 01/09/20 03/17/22 sildenafil 100 mg tablet 100 mg PO DIRECTED PRN 01/09/20 03/17/22 tamsulosin 0.4 mg capsule 0.4 mg PO DAILY 01/09/20 03/17/22 dicyclomine 20 mg tablet 20 mg PO BID #20 tabs 03/17/22 Previous Rx's Medication Instructions Recorded dicyclomine 20 mg tablet 20 mg PO BID #20 tabs 03/17/22 Allergies Allergy/AdvReac Type Severity Reaction Status Date / Time gluten AdvReac Intermediate stomach Verified 03/11/22 11:25 upset,pain General Stated Complaint: Chest Pain MARILYNN: 2 Review of Systems All systems reviewed & are unremarkable except as noted in HPI and below PFSH All Active Problems (Updated 03/17/22 @ 15:20 by Davian De Jesus DO) Abdominal pain, epigastric (Acute) Carpal tunnel syndrome of right wrist (Acute) Carpal tunnel syndrome of left wrist (Acute) Orthostatic dizziness (Acute) Impingement syndrome of left shoulder (Acute) Bursitis of left shoulder (Acute) Traumatic tear of left rotator cuff (Acute) Rupture of left proximal biceps tendon (Acute ~05/2020) Personal history of colonic polyps (Acute 01/04/13) Peripheral neuropathy (Acute 04/15/14) Celiac disease (Acute) Medical History Chronic low back pain Chronic pain Depression Dysgeusia (01/31/17) Dysosmia (01/31/17) Hypercholesterolemia Hypertension Osteoarthritis Psoriasis Surgical History Hemorrhoidal Banding Hemorrhoidectomy MULTIPLE BACK OPERATIONS NERVE STIMULATOR IMPLANTATION S/P laparoscopic fundoplication Total replacement of hip BILATERAL Family History Mother No problems noted. Father No problems noted. Sister No problems noted. Sister No problems noted. Sister No problems noted. Sister No problems noted. Brother No problems noted. Brother No problems noted. Social History Smoking/Tobacco Use Status: Former Tobacco Use Smoking risk assessment performed?: Yes Alcohol Intake: never Drug use: Daily Substance use type: marijuana Household members: spouse Housing: house Number of Children: 3 current occupation: Disabled. Formerly in construction. Current gender identity: male What is your relationship status?: Panel score (0-1 are the most socially isolated patients): 1 What type of physical activity do you participate in: additional Details: pt tries to stay active Do you feel safe at home: Yes Do you feel safe in your relationship?: Yes Exam Narrative Exam Narrative: 1.Const: Well-nourished, Well-developed, appearing stated age 2.Eyes: PERRL, no conjunctival injection, and symmetrical lids. 3.ENT: Atraumatic external nose and ears. Moist MM. Neck: Symmetric, trachea midline, No thyromegaly. 4.CVS: +S1/S2, No murmurs or gallops. Peripheral pulses 2+ and equal in all extremities. Brisk capillary refill in all extremities. 5.RESP: Unlabored respiratory effort. Clear to auscultation bilaterally. No wheezes rales or rhonchi, notable right and left chest wall tenderness over the lower ribs bilaterally, with some epigastric tenderness as well 6.GI: Soft, Nontender/Nondistended, No hepatosplenomegaly. No guarding or rebound. No pain at McBurney's point. Negative Rhodes sign 7.MSK: Normocephalic/Atraumatic, Extremities w/o deformity or ttp No cyanosis or clubbing, Normal movement of all extremities 8.Skin: Warm, Dry. No rashes or lesions. 9.Neuro: diabetes clinical manager II-XII grossly intact. Sensation grossly intact, no focal neurologic deficits. 10.Psych: (AAO) x3. Appropriate mood and affect Course Vital Signs Vital signs: Vital Signs Temperature 36.7 C 03/17/22 13:15 Pulse 90 03/17/22 13:15 Respiratory Rate 18 03/17/22 13:15 Blood Pressure 158/92 H 03/17/22 13:15 Pulse Oximetry 99 03/17/22 13:15 Temperature 36.7 C 03/17/22 13:15 Temperature Source Temporal Artery Scan 03/17/22 13:15 Pulse 90 03/17/22 13:15 Respiratory Rate 20 03/17/22 13:29 Respiratory Effort Short of Breath 03/17/22 13:29 Respiratory Depth Normal 03/17/22 13:29 Respiratory Pattern Normal 03/17/22 13:29 Blood Pressure 158/92 H 03/17/22 13:15 Blood Pressure Position Sitting 03/17/22 13:15 Pulse Oximetry 99 03/17/22 13:15 Oxygen Delivery Method Room Air 03/17/22 13:15 Oxygen Flow Rate 0 03/17/22 13:15 Pain Level 10 03/17/22 13:15 Lab/Test Results Lab/Test Results: Laboratory Tests Range/Units 03/17/22 03/17/22 13:28 13:28 WBC (4.4-10.8) 10^3/uL 5.02 RBC (4.36-5.78) 10^6/uL 5.33 Hgb (13.5-17.5) g/dL 16.8 Hct (40.0-50.0) % 49.2 MCV (80-95) fL 92 MCH (27.0-33.0) pg 31.5 MCHC (32.0-36.0) % 34.1 RDW (11.8-14.1) % 13.9 Plt Count (130-400) 10^3/uL 187 MPV (8.0-11.0) fL 9.8 Immature Gran % 0.2 Neutrophils % 54.1 Lymphocytes % 34.5 Monocytes % 9.2 Eosinophils % 1.6 Basophils % 0.4 Nucleated RBC % (0.0-0.3) % 0.0 Absolute Neutrophils (1.2-6.7) 10^3/uL 2.72 Absolute Lymphocytes (1.2-3.4) 10^3/uL 1.73 Absolute Monocytes (0.1-0.8) 10^3/uL 0.46 Absolute Eosinophils (0.0-0.7) 10^3/uL 0.08 Absolute Basophils (0.0-0.2) 10^3/uL 0.02 Sodium (136-145) mmol/L 141 Potassium (3.5-5.1) mmol/L 3.9 Chloride (98-107) mmol/L 104 Carbon Dioxide (21.0-32.0) mmol/L 29.3 Anion Gap (3-11) mmol/L 7.7 BUN (7-18) mg/dL 18 Creatinine (0.70-1.30) mg/dL 1.3 Est GFR (CKD-EPI 2020) (mL/min/1.73m2) 59.84 Glucose (74-106) mg/dL 99 Calcium (8.5-10.1) mg/dL 10.2 H Total Bilirubin (0.2-1.0) mg/dL 0.7 AST (15-37) U/L 27 ALT (16-63) U/L 29 Alkaline Phosphatase (46-116) U/L 63 Troponin I (<or=60) ng/L < 50 Total Protein (6.4-8.2) g/dL 7.9 Albumin (3.4-5.0) g/dL 4.4 Lipase (73-393) U/L 93 POCUS Exam (ED) Limited Cardiac Exam DATE OF EXAM: 03/17/22 TIME OF EXAM: 14:37 PROVIDER THAT PERFORMED THE STUDY: Davian De Jesus IS THIS A REPEAT EXAM DURING THIS ENCOUNTER: no REASON FOR EXAM: Chest pain VISUALIZED STRUCTURES: Four Chambers VIEW OBTAINED: Parasternal long-axis PERTINENT FINDINGS/IMPRESSION: No apparent abnormalities Exam complete Limited Thoracic Lung Exam DATE OF EXAM: 03/17/22 TIME OF EXAM: 14:38 PROVIDER THAT PERFORMED THE STUDY: Davian De Jesus REASON FOR EXAM: Chest pain VISUALIZED STRUCTURES: right lateral, left lateral, right posterior and left posterior PERTINENT FINDINGS/
[2022-03-17] MEDS: Omnipaque 350 MG/ML 100 ML BTL IJ (14:41)
[2022-03-17] MEDS: Dicyclomine 20 MG TAB PO (15:25)
[2022-03-17 16:50] LABS: Troponin I < 50 ng/L (<or=60)
--- NOTE | 2022-03-17 17:13 | W.EDPROG ---
Date of service: 03/17/22 Time of Service: 15:00 Medical Decision Making 1500 --please see Dr. De Jesus's note for initial presentation, exam and plan. Case endorsed to follow-up on repeat troponin and if negative, will plan for discharge to home. 1710 -- Repeat troponin negative. Patient is a 66-year-old male with a history of hypertension, hyperlipidemia, chronic back pain who presented with mostly upper abdominal and lower rib pain bilaterally extending from the left lower ribs left upper quadrant around to his right lower ribs right upper quadrant. He states the pain is mostly worse with movement including moving from sitting to standing position. History and presentation does not appear consistent with ACS. He was given Bentyl and morphine and admits to relief of his pain and feels comfortable going home. He remains hemodynamically stable. We will give a dose of Toradol and a prescription for muscle relaxers will be sent electronically to her pharmacy. A prescription for Bentyl was sent electronically by Dr. De Jesus. Advised to follow-up with his scheduled appointment with his primary care doctor next week and gastroenterology at [place] for reevaluation. Patient feels comfortable going home. Usual and customary return precautions given prior to discharge. Medical Records Medical records reviewed: Yes I reviewed the patient's medical records. Imaging Data Radiologic Study: Radiologist's impression: CT THORAX ? ABDOMEN CTA CLINICAL HISTORY: ? chest pain left to right. TECHNIQUE:? Imaging Protocol:? Axial CT angiography was performed with multi-slice acquisition and multi-planar and/or 3D reconstructions. CONTRAST MATERIAL:? Intravenous: Omnipaque 350 Contrast volume:structured data in ml COMPARISON:? No exams were available for comparison FINDINGS: CT angiography of the chest and upper abdomen was performed with intravenous infusion of 100 cc of Omnipaque 350. Note is made of a spinal stimulator in place in the mid thoracic region. The lungs are clear. No pleural effusion. Tracheobronchial tree appears intact. No evidence of pulmonary embolic disease. Thoracic aorta is of normal diameter, no thoracic aortic aneurysm or dissection, major branch vessels appear intact. No mediastinal or hilar adenopathy. Images obtained through the upper abdomen show unremarkable appearance of the visualized portions of the liver, spleen, pancreas, adrenals, and kidneys.? Prior gastric surgery noted.? Mild small bowel dilatation noted, no evidence of obstruction. Abdominal aorta appears intact throughout with minimal atheromatous wall calcification.? No significant stenosis of major arterial branch vessels in the upper abdomen. IMPRESSION: Negative CT angiogram of the chest and upper abdomen . No evidence of pulmonary embolic disease. Lab Data Lab results reviewed: Yes I reviewed the patient's lab results. Labs: Laboratory Tests Range/Units 03/17/22 03/17/22 03/17/22 13:28 13:28 16:30 WBC (4.4-10.8) 10^3/uL 5.02 RBC (4.36-5.78) 10^6/uL 5.33 Hgb (13.5-17.5) g/dL 16.8 Hct (40.0-50.0) % 49.2 MCV (80-95) fL 92 MCH (27.0-33.0) pg 31.5 MCHC (32.0-36.0) % 34.1 RDW (11.8-14.1) % 13.9 Plt Count (130-400) 10^3/uL 187 MPV (8.0-11.0) fL 9.8 Immature Gran % 0.2 Neutrophils % 54.1 Lymphocytes % 34.5 Monocytes % 9.2 Eosinophils % 1.6 Basophils % 0.4 Nucleated RBC % (0.0-0.3) % 0.0 Absolute Neutrophils (1.2-6.7) 10^3/uL 2.72 Absolute Lymphocytes (1.2-3.4) 10^3/uL 1.73 Absolute Monocytes (0.1-0.8) 10^3/uL 0.46 Absolute Eosinophils (0.0-0.7) 10^3/uL 0.08 Absolute Basophils (0.0-0.2) 10^3/uL 0.02 Sodium (136-145) mmol/L 141 Potassium (3.5-5.1) mmol/L 3.9 Chloride (98-107) mmol/L 104 Carbon Dioxide (21.0-32.0) mmol/L 29.3 Anion Gap (3-11) mmol/L 7.7 BUN (7-18) mg/dL 18 Creatinine (0.70-1.30) mg/dL 1.3 Est GFR (CKD-EPI 2020) (mL/min/1.73m2) 59.84 Glucose (74-106) mg/dL 99 Calcium (8.5-10.1) mg/dL 10.2 H Total Bilirubin (0.2-1.0) mg/dL 0.7 AST (15-37) U/L 27 ALT (16-63) U/L 29 Alkaline Phosphatase (46-116) U/L 63 Troponin I (<or=60) ng/L < 50 < 50 Total Protein (6.4-8.2) g/dL 7.9 Albumin (3.4-5.0) g/dL 4.4 Lipase (73-393) U/L 93 ECG Data Attestation: I personally reviewed and interpreted this ECG (s) as follows: Interpretation: Rate of 80, sinus, normal axis, no stemi Sign Out Sign Out Data: Sign Out Comment: Follow-up on repeat troponin at 420. CT negative, fair bit of gas which may be causing his discomfort. Giving Bentyl and GI cocktail. Last updated by Davian De Jesus DO at 03/17/22 15:24 Discharge Plan Disposition Patient Disposition: HOME Condition: Good Discharge Details Clinical Impression: Abdominal pain, epigastric Primary Care Provider: Kurt Le ED Provider: Michelle Rosales Home Meds and New Rx's Prescriptions: New methocarbamol 500 mg tablet 500 mg PO Q6H PRN (Reason: muscle spasm) Qty: 14 0RF dicyclomine 20 mg tablet 20 mg PO TID PRN (Reason: pain) Qty: 14 0RF Continued omeprazole 20 mg capsule,delayed release(DR/EC) 40 mg PO DAILY multivitamin [Daily Multi-Vitamin] 1 EACH tablet 1 ea PO DAILY amoxicillin 500 MG capsule 2,000 mg PO PRN DENTAL magnesium oxide 400 MG tablet 400 mg PO DAILY Glucosamine Complex-MSM 1 EACH capsule 1 ea PO DAILY cholecalciferol (vitamin D3) 2,000 UNIT tablet 2,000 unit PO DAILY calcium carbonate-vitamin D3 1 EACH capsule 1 ea PO DAILY cyanocobalamin (vitamin B-12) 2,500 MCG tablet,chewable 1,000 mcg PO DAILY MEDICAL MARIJUANA Inhalation PRN 0RF thiamine HCl (vitamin B1) [Vitamin B-1] 100 MG tablet 100 mg PO DAILY lovastatin 40 MG tablet 40 mg PO HS acyclovir 400 MG tablet 800 mg PO DAILY triamcinolone acetonide 15 GM ointment 1 ea Topical DIRECTED PRN hydrochlorothiazide 25 MG tablet 12.5 mg PO DAILY celecoxib [Celebrex] 400 MG capsule 400 mg PO DAILY duloxetine [Cymbalta] 60 MG capsule,delayed release(DR/EC) 60 mg PO BID aspirin [Aspir-81] 81 mg Tablet,Delayed Release (Dr/Ec) 81 mg PO DAILY sildenafil 100 mg tablet 100 mg PO DIRECTED PRN tamsulosin 0.4 mg capsule 0.4 mg PO DAILY quetiapine [Seroquel] 50 MG tablet 50 mg PO HS Discharge Instructions Instructions: Muscle Strain (ED), Epigastric Pain (ED) Additional Instructions: Your blood tests, EKG and imaging today are reassuring and show no evidence of acute concerning or significant findings. Prescriptions for Bentyl for gastrointestinal discomfort and methocarbamol for muscle strain have been sent electronically to your pharmacy. Avoid any fatty or greasy foods. Use Pepto-Bismol or Maalox at home as needed. Please follow up with your scheduled appointment with your primary care provider next week. Call your [facility] developer in [place] to schedule follow-up appointment for reevaluation. Return immediately to the emergency department if you develop any worsening or new concerning symptoms such as fever, difficulty breathing, persistent vomiting, worsening pain or any other concerns. Referrals: Kurt Le [Primary Care Provider] - Discharge Data Discharge Physician: Michelle Rosales
[2022-03-17] MEDS: Ketorolac 30 MG/ML VIAL IVP (17:44)
== END 2022-03-17 17:56 | disposition home or self-care (01) ==
PROVIDERS: Student in an Organized Health Care Education/Training Program; Emergency Provider Physician Assistant; PCP Physician Assistant
DX: R10.13 Epigastric pain (principal); R07.81 Pleurodynia; I10 Essential (primary) hypertension
CPT/HCPCS: 36415; 71275; 74175; 76604; 80053; 83690; 93005; 93308; 96374; 96375; 99285; 84484; 85025; 93010; 99284; J1885; J2270; J3490

== ENCOUNTER 2022-03-19 15:16 | Outpatient (REF) | payer MEDICARE, OTHER, SELFPAY ==
[2022-03-19 16:40] LABS: ALT 25 U/L (16-63); AST 22 U/L (15-37); Albumin 3.8 g/dL (3.4-5.0); Alkaline Phosphatase 56 U/L (46-116); BUN 24 mg/dL (7-18); Bilirubin, Total 0.5 mg/dL (0.2-1.0); CREATININE 1.1 mg/dL (0.70-1.30); Calcium 9.6 mg/dL (8.5-10.1); Calculated LDL 89 mg/dL (<100); Chloride 105 mmol/L (98-107); Cholesterol 158 mg/dL (<200); Estimated GFR 73.12 (mL/min/1.73m2); Glucose 119 mg/dL (74-106); HDL Cholesterol 46 mg/dL (40-60); Potassium 3.9 mmol/L (3.5-5.1); Sodium 142 mmol/L (136-145); Total Protein 6.6 g/dL (6.4-8.2); Triglyceride 117 mg/dL (<150)
[2022-03-19 17:36] LABS: Hemoglobin A1C 5.7 % (<5.7)
[2022-03-19 22:16] LABS: PSA, Screening 7.9 ng/mL (<=4.5)
== END 2022-03-19 15:17 | disposition home or self-care (01) ==
LOC: NCHCN 15:16
PROVIDERS: PCP Physician Assistant; Visit Provider Physician Assistant
DX: E78.5 Hyperlipidemia, unspecified (principal); R73.03 Prediabetes; I10 Essential (primary) hypertension; Z12.5 Encounter for screening for malignant neoplasm of prostate; R97.20 Elevated prostate specific antigen [PSA]
CPT/HCPCS: 80053; 80061; 84153; 83036

== ENCOUNTER 2022-04-07 06:08 | Day surgery (SDC) | payer MEDICARE, OTHER, SELFPAY ==
[2022-04-07 06:20] VITALS: BP 113/82; PULSE 75; RESP 18; TEMP 36.7; O2SAT 99
[2022-04-07] MEDS: Lactated Ringers 1,000 ML 80 ML IV (06:36)
--- NOTE | 2022-04-07 06:49 | ANES.PREOP_ITS ---
General Info Date of Service Date Performed: 04/07/22 Height: 6 ft 2 in Weight: 103.8 kg Body Mass Index (BMI): 29.3 Surgical Procedure: Operation Date: 04/07/22 07:40 Proposed Procedure Side Surgeon p Wrist ECTR Right Nick Romero MD Actual Procedure Side Surgeon p Wrist ECTR Right Nick Romero MD Meds Allergies and Home Medications Allergies Allergy/AdvReac Type Severity Reaction Status Date / Time gluten AdvReac Intermediate stomach Verified 03/11/22 11:25 upset,pain Home Medication Medication Instructions Recorded acyclovir 400 mg tablet 800 mg PO DAILY 09/13/12 celecoxib 400 mg capsule (Celebrex) 400 mg PO DAILY 09/13/12 duloxetine 60 mg capsule,delayed 60 mg PO BID 09/13/12 release (Cymbalta) hydrochlorothiazide 25 mg tablet 12.5 mg PO DAILY 09/13/12 lovastatin 40 mg tablet 40 mg PO HS 09/13/12 triamcinolone acetonide 0.1 % 1 ea topical DIRECTED PRN 09/13/12 topical ointment amoxicillin 500 mg capsule 2,000 mg PO PRN DENTAL 01/16/18 calcium carbonate 600 mg-vitamin 1 ea PO DAILY 01/16/18 D3 10 mcg (400 unit) capsule cholecalciferol (vitamin D3) 50 2,000 unit PO DAILY 01/16/18 mcg (2,000 unit) tablet cyanocobalamin (vitamin B-12) 1,000 mcg PO DAILY 01/16/18 2,500 mcg chewable tablet xckjtcjvuil-yih-bacafmnsn-vitC 1 ea PO DAILY 01/16/18 capsule (Glucosamine Complex-MSM capsule) magnesium oxide 400 mg (241.3 mg 400 mg PO DAILY 01/16/18 magnesium) tablet multivitamin (Daily Multi-Vitamin 1 ea PO DAILY 01/16/18 tablet) thiamine HCl (vitamin B1) 100 mg 100 mg PO DAILY 01/16/18 tablet (Vitamin B-1) omeprazole 20 mg capsule,delayed 40 mg PO DAILY 06/11/19 release aspirin 81 mg tablet,delayed 81 mg PO DAILY 01/09/20 release (Aspir-) quetiapine 50 mg tablet (Seroquel) 50 mg PO HS 01/09/20 sildenafil 100 mg tablet 100 mg PO DIRECTED PRN 01/09/20 tamsulosin 0.4 mg capsule 0.8 mg PO HS 01/09/20 dicyclomine 20 mg tablet 20 mg PO TID PRN pain #14 tabs 03/17/22 methocarbamol 500 mg tablet 500 mg PO Q6H PRN muscle spasm #14 03/17/22 tabs Current Visit Medications: Current Medications Generic Name Dose Route Start Last Admin Trade Name Chakaq PRN Reason Stop Dose Admin Ringer's Solution 1,000 mls @ 80 mls/hr 04/07/22 06:00 04/07/22 06:36 IV 04/07/22 23:59 80 mls/hr INFUSION SEAMUS Administration Cefazolin Sodium/Dextrose 2 gm in 50 mls @ 100 mls/hr 04/07/22 06:00 Ancef Duplex IVPB 04/07/22 23:59 PREOP SEAMUS IV Miscellaneous Supplies 1 each 04/07/22 06:00 Iv Access IV 04/07/22 23:59 DIRECTED SEAMUS Sodium Chloride 0 ml 04/07/22 06:00 Normal Saline Flush 10 Ml Syr IV 04/07/22 23:59 PRN PRN Sodium Chloride 0 ml 04/07/22 06:00 Normal Saline 10 Ml Vial IJ 04/07/22 23:59 DIRECTED PRN Sterile Water 0 ml 04/07/22 06:00 Water,Injection,Sterile 10 Ml Vial IJ 04/07/22 23:59 DIRECTED PRN PFSH Active Problems Active Problems: Problem Status Onset Code Abdominal pain, epigastric R10.13 Carpal tunnel syndrome of right wrist G56.01 Carpal tunnel syndrome of left wrist G56.02 Orthostatic dizziness R42 Impingement syndrome of left shoulder M75.42 Bursitis of left shoulder M75.52 Traumatic tear of left rotator cuff S46.012A Rupture of left proximal biceps tendon ~05/2020 S46.212A Personal history of colonic polyps 01/04/13 Z86.010 Peripheral neuropathy 04/15/14 G62.9 Celiac disease K90.0 Medical History Medical History Chronic low back pain Chronic pain Depression Dysgeusia (01/31/17) Dysosmia (01/31/17) Hypercholesterolemia Hypertension Osteoarthritis Psoriasis Medical History Comments:: Spinal cord stimulator [facility] [employer] brand implanted 06/12/20 Surgical History Surgical History Hemorrhoidal Banding Hemorrhoidectomy MULTIPLE BACK OPERATIONS NERVE STIMULATOR IMPLANTATION S/P laparoscopic fundoplication Total replacement of hip BILATERAL Tobacco Smoking/Tobacco Use Status: Former Tobacco Use Alcohol Alcohol Intake: current Alcohol intake frequency: holidays/special occasions only Substance Use Substance use: Daily Substance use type: marijuana Details: medical cannabis BID - TID Vital Signs and Lab Results Vital Signs Most Recent Vital Signs in EMR: Most Recent Vital Signs Temp Pulse Resp BP Pulse Ox 36.7 C 75 18 113/82 99 04/07/22 06:20 04/07/22 06:20 04/07/22 06:20 04/07/22 06:20 04/07/22 06:20 Lab Results Blood Type / Crossmatch: No Data to Display Complete Blood Count: White Blood Count 5.02 10^3/uL (4.4-10.8) 03/17/22 13:28 Red Blood Count 5.33 10^6/uL (4.36-5.78) 03/17/22 13:28 Hemoglobin 16.8 g/dL (13.5-17.5) 03/17/22 13:28 Hematocrit 49.2 % (40.0-50.0) 03/17/22 13:28 Platelet Count 187 10^3/uL (130-400) 03/17/22 13:28 Complete Metabolic Panel: Sodium 142 mmol/L (136-145) 03/19/22 07:40 Potassium 3.9 mmol/L (3.5-5.1) 03/19/22 07:40 Chloride 105 mmol/L (98-107) 03/19/22 07:40 Carbon Dioxide 26.0 mmol/L (21.0-32.0) 03/19/22 07:40 BUN 24 mg/dL (7-18) H 03/19/22 07:40 Creatinine 1.1 mg/dL (0.70-1.30) 03/19/22 07:40 Est GFR (CKD-EPI 2020) 73.12 (mL/min/1.73m2) 03/19/22 07:40 Calcium 9.6 mg/dL (8.5-10.1) 03/19/22 07:40 Albumin 3.8 g/dL (3.4-5.0) 03/19/22 07:40 Glucose 119 mg/dL (74-106) H 03/19/22 07:40 Hemoglobin A1c 5.7 % (<5.7) 03/19/22 07:40 Liver Function Panel: Alanine Aminotransferase (ALT/SGPT) 25 U/L (16-63) 03/19/22 07: 40 Aspartate Amino Transf (AST/SGOT) 22 U/L (15-37) 03/19/22 07:40 Coagulation Panel: No Data to Display Cardiac Panel: Troponin I < 50 ng/L (<or=60) 03/17/22 Arterial Blood Gas: No Data to Display Venous Blood Gas: No Data to Display Pancreas Panel: Lipase 93 U/L (73-393) 03/17/22 13:28 Thyroid Panel: No Data to Display Infectious Disease: No Data to Display Blood Cultures: No Data to Display Toxicology Panel: No Data to Display Imaging and Studies Imaging and Studies Study information below may be from another EMR and interpreted by another provider. Please see original notes in EMR for more complete details. EKG Summary: Conclusion Sinus rhythm...normal P axis, V-rate 60- 99 Physician: no stemi 03/13 Anesthesia Assessment and Plan Anesthesia History Personal History: No History of Anesthesia Complications Family History: No Family History of Anesthesia Complications Exercise Tolerance Exercise Tolerance: Metabolic Equivalents>4 Pertinent Negatives Pertinent Negatives: No Symptoms of GERD Cardiac & Pulmonary Exam Cardiac Exam: Normal S1/S2 Heart Sounds Pulmonary Exam: Clear Bilateral Breath Sounds Implantable Cardiac Device Does patient have a Pacemaker or an ICD?: No Airway Exam Known Difficult Airway: No Mallampati Class: 3 Mouth Opening: Normal (> 3cm) Thyromental Distance: Greater than 3 cm Neck Range of Motion: Full ROM Neck Circumference: Normal Teeth Condition: Normal Dentition, Removable Dentures/Plates Upper and Removable Dentures/Plates Lower ASA Classification ASA Score: ASA 2 Emergency Case?: No NPO Status NPO Status: NPO Clears >2 hours, Solids >8 hours Anesthesia Plan Resuscitation Status: Full Code Anesthesia Technique: General Anesthesia Airway Planned: Natural Airway Monitors Used: Standard Monitors
[2022-04-07 06:54] VITALS: BMI 29.3
--- NOTE | 2022-04-07 07:12 | PDOC.DSDIS_ITS ---
Date of service: 04/07/22 Time of Service: 07:12 Discharge Plan Disposition Patient Disposition: HOME Condition: Good Condition: Good Discharge Details Reason For Visit: Right Carpal Tunnel Syndrome Attending Provider: Nick Romero Primary Care Provider: Kurt Le Home Meds and New Rx's Prescriptions: New hydrocodone-acetaminophen 5-325 mg tablet 1 tab PO Q6H PRN (Reason: pain) Qty: 6 0RF acetaminophen 500 mg tablet 500 mg PO Q6H PRN PRN (Reason: pain) Qty: 40 3RF Continued omeprazole 20 mg capsule,delayed release(DR/EC) 40 mg PO DAILY multivitamin [Daily Multi-Vitamin] 1 EACH tablet 1 ea PO DAILY amoxicillin 500 MG capsule 2,000 mg PO PRN DENTAL magnesium oxide 400 MG tablet 400 mg PO DAILY Glucosamine Complex-MSM 1 EACH capsule 1 ea PO DAILY cholecalciferol (vitamin D3) 2,000 UNIT tablet 2,000 unit PO DAILY calcium carbonate-vitamin D3 1 EACH capsule 1 ea PO DAILY cyanocobalamin (vitamin B-12) 2,500 MCG tablet,chewable 1,000 mcg PO DAILY MEDICAL MARIJ[employer] Inhalation PRN 0RF thiamine HCl (vitamin B1) [Vitamin B-1] 100 MG tablet 100 mg PO DAILY lovastatin 40 MG tablet 40 mg PO HS acyclovir 400 MG tablet 800 mg PO DAILY triamcinolone acetonide 15 GM ointment 1 ea Topical DIRECTED PRN hydrochlorothiazide 25 MG tablet 12.5 mg PO DAILY celecoxib [Celebrex] 400 MG capsule 400 mg PO DAILY duloxetine [Cymbalta] 60 MG capsule,delayed release(DR/EC) 60 mg PO BID methocarbamol 500 mg tablet 500 mg PO Q6H PRN (Reason: muscle spasm) Qty: 14 0RF dicyclomine 20 mg tablet 20 mg PO TID PRN (Reason: pain) Qty: 14 0RF aspirin [Aspir-81] 81 mg Tablet,Delayed Release (Dr/Ec) 81 mg PO DAILY sildenafil 100 mg tablet 100 mg PO DIRECTED PRN tamsulosin 0.4 mg capsule 0.8 mg PO HS quetiapine [Seroquel] 50 MG tablet 50 mg PO HS Discharge Instructions Stand Alone Forms: Heather Corcoran Tunnel Release Referrals: Nick Romero MD [ [facility] STAFF PHYSICIAN] - Activity:: Elevate Remove Dressings/Wound Care:: 48 hours Shower/Bathe:: 48 hours Diet:: As Tolerated Discharge Orders Discharge Orders: Discharge Order (Routine); Ordered 04/07/22 Ordered By: Nick Romero DS: Diagnosis Discharge Diagnosis (1) Carpal tunnel syndrome of right wrist: Status: Acute
--- NOTE | 2022-04-07 07:45 | W.PM.OP ---
Date of service: 04/07/22 Time of Service: 07:45 Operative Note Operative Note DATE OF PROCEDURE: 04/07/22 PRE-OP DIAGNOSIS: Right Carpal Tunnel SYndrome POST-OP DIAGNOSIS: same PROCEDURE: Right Endoscopic Carpal Tunnel Release SURGEON: Nick Romero ANESTHESIA TYPE: General:No Airway Refer to Anesthesia Record ESTIMATED BLOOD LOSS: 0 PATHOLOGY: none sent TOURNIQUET TIME: 5 COMPLICATIONS: None Patient was transported to: same day Patient's condition: stable Indications: I have seen Dean in clinic for symptoms of carpal tunnel syndrome. The numbness, tingling, and pain limited function. Clinical exam findings with nerve conduction tests confirmed the diagnosis of carpal tunnel syndrome. Nonoperative measures such as bracing, time, activity modifications had been tried but disability and pain persisted. I discussed carpal tunnel release with the patient. I reviewed the risks of the procedure to include, but not limited to, bleeding, infection, pain, stiffness, incomplete release, damage to nerves or vessels, persistent numbness, recurrence. Despite these risks, the patient elected to proceed. Findings: There was tightened carpal tunnel. This was dilated and released successfully with the endoscopic with increased space within the tunnel. The antebrachial fascia was released proximally freeing the median nerve at the wrist. Procedure Description: Dean was greeted in the preoperative holding area where the correct side was identified and marked. The consent was reviewed with the patient and signed. The history and physical was updated. All questions were answered. He was taken back to the operating room. The patient was placed into the supine position on the operating room table with the right arm on an arm board. A nonsterile tourniquet was placed high onto the arm. All bony prominences were well padded. Prophylactic antibiotics in the form of Cefazolin were administered. The right arm was then prepped with Chloraprep and draped in a standard fashion with stockinette and extremity drape. A timeout to confirm correct identity, side and site, procedure, allergies, anesthesia, and medical concerns was performed. The surgical site was marked in the volar wrist creases in line with the radial border of the fourth ray. This area was anesthetized with approximately 6cc of 1% Lidocaine. The limb was then exsanguinated with an Esmarch. The skin was incised with a 15 blade, approximately 1cm. The skin only was cut and the deeper tissue was dissected bluntly with a tenotomy scissor, avoiding passing nerve and venous structures. The fascia was penetrated and opened bluntly. A two-prong skin hook was placed under this proximal fascial edge. A series of hamate finders were used to identify and dilate the carpal tunnel. Synovial elevator was used to free synovial attachments to the underside of the transverse carpal ligament. My thumb was kept in the palm to lukas the distal extent of the carpal tunnel and correctly position the hand. The Microaire endoscope was inserted without difficulty and without resistance. Excellent visualization showed horizontally running fibers of the transverse carpal ligament (TCL). The distal extent of the TCL was visualized and the end of the scope palpated with the thumb. The blade was elevated and withdrawn from distal to proximal. The TCL was split into two flaps. The endoscope was reinserted to confirm complete release and any remnant ligament was incised. The scope was withdrawn and the proximal aspect of the carpal tunnel was grossly inspected and appeared release with the median nerve visible. The antebrachial fascia at the level of the wrist was then freed from the overlying skin and then the underlying median nerve with blunt dissection. This was transected longitudinally for about 3cm proximal to the wrist incision. The wound was then irrigated with easy flow of irrigant distally and proximally. The incision was closed with a single 4-0 Nylon suture. The wound was dressed with Xeroform, Gauze, Kerlix and Patricio. The tourniquet was deflated with the initial dressing and held with some pressure. Blood flow returned easily to all digits with capillary refill less than 2 seconds. The patient tolerated the procedure well and was returned to the Same Day Surgery area in a stable condition suffering no known complication.
[2022-04-07 07:52] VITALS: BP 101/70; PULSE 71; RESP 17; TEMP 36.1; O2SAT 94
--- NOTE | 2022-04-07 07:57 | W.ANESPOSTOP ---
Postoperative Evaluation Date, Time and Location Date Performed: 04/07/22 Time Performed: 07:58 Patient Location: Day Surgery Unit Vital Signs Most Recent Imported Vital Signs: Most Recent Vital Signs Temp Pulse Resp BP Pulse Ox 36.1 C L 71 17 101/70 94 04/07/22 07:52 04/07/22 07:52 04/07/22 07:52 04/07/22 07:52 04/07/22 07:52 Pain Score Most Recent Pain Score: Most Recent Pain Score Pain Level 0 04/07/22 07:52 Assessment Mental Status: Awake (Alert & Oriented to Patient Baseline) Airway and Respiratory Function: Patent airway with normal (patient baseline) respiratory exam Cardiovascular Function: Hemodynamically Stable Hydration Status: Adequately Hydrated Nausea & Vomiting: No Nausea or Vomiting Pain: Pt. Denies Any Pain Peripheral Nerve Block: Patient did not receive a nerve block
[2022-04-07 08:16] VITALS: BP 110/56; PULSE 65; RESP 18; TEMP 36.4; O2SAT 97
== END 2022-04-07 08:28 | disposition home or self-care (01) ==
PROVIDERS: PCP Physician Assistant; Visit Provider Student in an Organized Health Care Education/Training Program
PROC: 01N54ZZ Release Median Nerve, Percutaneous Endoscopic Approach (ICD-10-PCS; CPT 29848; principal; 2022-04-07 07:30)
DX: G56.01 Carpal tunnel syndrome, right upper limb (principal)
CPT/HCPCS: 29848

== ENCOUNTER 2022-04-09 11:14 | Outpatient (REF) | payer MEDICARE, OTHER, SELFPAY ==
--- NOTE | 2022-04-09 10:10 | SKI_PTH ---
PATIENT: Dean Latif LOC: [facility] U#:[id number] AGE/SX: 66/M ROOM: RE04/09/[address]: Kurt Duran DO : 1955 BED: DIS: 04/09/2022 SPEC #: [id number] RECD: 04/09/22 17:25 STATUS: HARINI REQ #: [id number] DERICK: 04/09/22 10:[address]: Kurt Duran DEPT: Surgical Specimen RECD BY: Jessica Riley ENTERED: 04/09/22 17:26 SP TYPE: GABI HASTINGS DR: Kurt Le Tissues: 1 - SKIN BIOPSY(SHAVE/PUNCH) 2 - SKIN BIOPSY(SHAVE/PUNCH) 3 - SKIN BIOPSY(SHAVE/PUNCH) Procedures: SKIN LEVEL 4 Comments: [id number]
== END 2022-04-09 11:15 | disposition home or self-care (01) ==
LOC: LBN 11:14
PROVIDERS: PCP Physician Assistant; Visit Provider Otolaryngology Otolaryngology/Facial Plastic Surgery
DX: L28.0 Lichen simplex chronicus (principal)
CPT/HCPCS: 88305

== ENCOUNTER 2022-04-14 09:21 | Day surgery (SDC) | payer MEDICARE, OTHER, SELFPAY ==
[2022-04-14 09:35] VITALS: BP 123/80; PULSE 80; RESP 18; TEMP 36.3; O2SAT 100
[2022-04-14] MEDS: Lactated Ringers 1,000 ML 80 ML IV (09:59)
--- NOTE | 2022-04-14 10:01 | ANES.PREOP_ITS ---
General Info Date of Service Date Performed: 04/14/22 Height: 6 ft 2 in Weight: 100.7 kg Body Mass Index (BMI): 28.5 Surgical Procedure: Operation Date: 04/14/22 11:10 Proposed Procedure Side Surgeon p Wrist ECTR Left Nick Romero MD Meds Allergies and Home Medications Allergies Allergy/AdvReac Type Severity Reaction Status Date / Time gluten AdvReac Intermediate stomach Verified 04/14/22 09:36 upset,pain Home Medication Medication Instructions Recorded acyclovir 400 mg tablet 800 mg PO DAILY 09/13/12 celecoxib 400 mg capsule (Celebrex) 400 mg PO DAILY 09/13/12 duloxetine 60 mg capsule,delayed 60 mg PO BID 09/13/12 release (Cymbalta) hydrochlorothiazide 25 mg tablet 12.5 mg PO DAILY 09/13/12 lovastatin 40 mg tablet 40 mg PO HS 09/13/12 triamcinolone acetonide 0.1 % 1 ea topical DIRECTED PRN 09/13/12 topical ointment amoxicillin 500 mg capsule 2,000 mg PO PRN DENTAL 01/16/18 calcium carbonate 600 mg-vitamin 1 ea PO DAILY 01/16/18 D3 10 mcg (400 unit) capsule cholecalciferol (vitamin D3) 50 2,000 unit PO DAILY 01/16/18 mcg (2,000 unit) tablet cyanocobalamin (vitamin B-12) 1,000 mcg PO DAILY 01/16/18 2,500 mcg chewable tablet cpaumfbsgwm-pog-vebvooexa-vitC 1 ea PO DAILY 01/16/18 capsule (Glucosamine Complex-MSM capsule) magnesium oxide 400 mg (241.3 mg 400 mg PO DAILY 01/16/18 magnesium) tablet multivitamin (Daily Multi-Vitamin 1 ea PO DAILY 01/16/18 tablet) thiamine HCl (vitamin B1) 100 mg 100 mg PO DAILY 01/16/18 tablet (Vitamin B-1) omeprazole 20 mg capsule,delayed 40 mg PO DAILY 06/11/19 release aspirin 81 mg tablet,delayed 81 mg PO DAILY 01/09/20 release (Aspir-) quetiapine 50 mg tablet (Seroquel) 50 mg PO HS 01/09/20 sildenafil 100 mg tablet 100 mg PO DIRECTED PRN 01/09/20 tamsulosin 0.4 mg capsule 0.8 mg PO HS 01/09/20 dicyclomine 20 mg tablet 20 mg PO TID PRN pain #14 tabs 03/17/22 methocarbamol 500 mg tablet 500 mg PO Q6H PRN muscle spasm #14 03/17/22 tabs acetaminophen 500 mg tablet 500 mg PO Q6H PRN PRN pain #40 tabs 04/07/22 hydrocodone 5 mg-acetaminophen 325 1 tab PO Q6H PRN pain #6 tabs 04/07/22 mg tablet Current Visit Medications: Current Medications Generic Name Dose Route Start Last Admin Trade Name Christiano PRN Reason Stop Dose Admin Ringer's Solution 1,000 mls @ 80 mls/hr 04/14/22 06:00 04/14/22 09:59 IV 05/13/22 23:59 80 mls/hr INFUSION SEAMUS Administration Cefazolin Sodium/Dextrose 2 gm in 50 mls @ 100 mls/hr 04/14/22 06:00 Ancef Duplex IVPB 04/14/22 16:00 PREOP SEAMUS IV Miscellaneous Supplies 1 each 04/14/22 06:00 Iv Access IV 05/13/22 23:59 DIRECTED SEAMUS Sodium Chloride 0 ml 04/14/22 06:00 Normal Saline Flush 10 Ml Syr IV 05/13/22 23:59 PRN PRN Sodium Chloride 0 ml 04/14/22 06:00 Normal Saline 10 Ml Vial IJ 05/13/22 23:59 DIRECTED PRN Sterile Water 0 ml 04/14/22 06:00 Water,Injection,Sterile 10 Ml Vial IJ 05/13/22 23:59 DIRECTED PRN PFSH Active Problems Active Problems: Problem Status Onset Code Abdominal pain, epigastric R10.13 Carpal tunnel syndrome of right wrist G56.01 Carpal tunnel syndrome of left wrist G56.02 Orthostatic dizziness R42 Impingement syndrome of left shoulder M75.42 Bursitis of left shoulder M75.52 Traumatic tear of left rotator cuff S46.012A Rupture of left proximal biceps tendon ~05/2020 S46.212A Personal history of colonic polyps 01/04/13 Z86.010 Peripheral neuropathy 04/15/14 G62.9 Celiac disease K90.0 Medical History Medical History Chronic low back pain Chronic pain Depression Dysgeusia (01/31/17) Dysosmia (01/31/17) Hypercholesterolemia Hypertension Osteoarthritis Psoriasis Medical History Comments:: Spinal cord stimulator [employer] brand implanted 06/12/20 Surgical History Surgical History Hemorrhoidal Banding Hemorrhoidectomy MULTIPLE BACK OPERATIONS NERVE STIMULATOR IMPLANTATION S/P laparoscopic fundoplication Total replacement of hip BILATERAL Tobacco Smoking/Tobacco Use Status: Former Tobacco Use Alcohol Alcohol Intake: current Alcohol intake frequency: holidays/special occasions only Substance Use Substance use: Daily Substance use type: marijuana Details: medical cannabis BID - TID Vital Signs and Lab Results Vital Signs Most Recent Vital Signs in EMR: Most Recent Vital Signs Temp Pulse Resp BP Pulse Ox 36.3 C L 80 18 123/80 100 04/14/22 09:35 04/14/22 09:35 04/14/22 09:35 04/14/22 09:35 04/14/22 09:35 Lab Results Blood Type / Crossmatch: No Data to Display Complete Blood Count: White Blood Count 5.02 10^3/uL (4.4-10.8) 03/17/22 13:28 Red Blood Count 5.33 10^6/uL (4.36-5.78) 03/17/22 13:28 Hemoglobin 16.8 g/dL (13.5-17.5) 03/17/22 13:28 Hematocrit 49.2 % (40.0-50.0) 03/17/22 13:28 Platelet Count 187 10^3/uL (130-400) 03/17/22 13:28 Complete Metabolic Panel: Sodium 142 mmol/L (136-145) 03/19/22 07:40 Potassium 3.9 mmol/L (3.5-5.1) 03/19/22 07:40 Chloride 105 mmol/L (98-107) 03/19/22 07:40 Carbon Dioxide 26.0 mmol/L (21.0-32.0) 03/19/22 07:40 BUN 24 mg/dL (7-18) H 03/19/22 07:40 Creatinine 1.1 mg/dL (0.70-1.30) 03/19/22 07:40 Est GFR (CKD-EPI 2020) 73.12 (mL/min/1.73m2) 03/19/22 07:40 Calcium 9.6 mg/dL (8.5-10.1) 03/19/22 07:40 Albumin 3.8 g/dL (3.4-5.0) 03/19/22 07:40 Glucose 119 mg/dL (74-106) H 03/19/22 07:40 Hemoglobin A1c 5.7 % (<5.7) 03/19/22 07:40 Liver Function Panel: Alanine Aminotransferase (ALT/SGPT) 25 U/L (16-63) 03/19/22 07: 40 Aspartate Amino Transf (AST/SGOT) 22 U/L (15-37) 03/19/22 07:40 Coagulation Panel: No Data to Display Cardiac Panel: Troponin I < 50 ng/L (<or=60) 03/17/22 Arterial Blood Gas: No Data to Display Venous Blood Gas: No Data to Display Pancreas Panel: Lipase 93 U/L (73-393) 03/17/22 13:28 Thyroid Panel: No Data to Display Infectious Disease: No Data to Display Blood Cultures: No Data to Display Toxicology Panel: No Data to Display Imaging and Studies Imaging and Studies Study information below may be from another EMR and interpreted by another provider. Please see original notes in EMR for more complete details. EKG Summary: Conclusion Sinus rhythm...normal P axis, V-rate 60- 99 Physician: radha stemi 03/13 Anesthesia Assessment and Plan Anesthesia History Personal History: No History of Anesthesia Complications Family History: No Family History of Anesthesia Complications Exercise Tolerance Exercise Tolerance: Metabolic Equivalents>4 Cardiac & Pulmonary Exam Cardiac Exam: Normal S1/S2 Heart Sounds Pulmonary Exam: Clear Bilateral Breath Sounds Implantable Cardiac Device Does patient have a Pacemaker or an ICD?: No Airway Exam Known Difficult Airway: No Mallampati Class: 3 Mouth Opening: Normal (> 3cm) Thyromental Distance: Greater than 3 cm Neck Range of Motion: Full ROM Neck Circumference: Normal Teeth Condition: Normal Dentition (8 teeth of own, none loose), Removable Dentures/Plates Upper and Removable Dentures/Plates Lower ASA Classification ASA Score: ASA 2 Emergency Case?: No NPO Status NPO Status: NPO Clears >2 hours, Solids >8 hours Anesthesia Plan Resuscitation Status: Full Code Anesthesia Technique: General Anesthesia Airway Planned: Natural Airway Monitors Used: Standard Monitors
[2022-04-14 10:10] VITALS: BMI 28.5
[2022-04-14] MEDS: ceFAZolin 2 GM/50 ML BAG IVPB (10:36)
[2022-04-14] MEDS: Lidocaine 1% Pres-Free W/EPI 1/200,000 10 ML VIAL (10:47)
--- NOTE | 2022-04-14 10:56 | W.PM.DSUDISC ---
Date of service: 04/14/22 Time of Service: 10:58 Discharge Plan Disposition Patient Disposition: HOME Condition: Good Discharge Details Reason For Visit: Left carpal tunnel syndrome Attending Provider: Nick Romero Primary Care Provider: Kurt Le Home Meds and New Rx's Prescriptions: New hydrocodone-acetaminophen 5-325 mg tablet 1 tab PO Q6H PRN (Reason: severe pain) Qty: 6 0RF Rx Instructions: Take one tablet up to every 6 hours as needed for severe postoperative pain Continued omeprazole 20 mg capsule,delayed release(DR/EC) 40 mg PO DAILY multivitamin [Daily Multi-Vitamin] 1 EACH tablet 1 ea PO DAILY amoxicillin 500 MG capsule 2,000 mg PO PRN DENTAL magnesium oxide 400 MG tablet 400 mg PO DAILY Glucosamine Complex-MSM 1 EACH capsule 1 ea PO DAILY cholecalciferol (vitamin D3) 2,000 UNIT tablet 2,000 unit PO DAILY calcium carbonate-vitamin D3 1 EACH capsule 1 ea PO DAILY cyanocobalamin (vitamin B-12) 2,500 MCG tablet,chewable 1,000 mcg PO DAILY MEDICAL MARIJUANA Inhalation PRN 0RF thiamine HCl (vitamin B1) [Vitamin B-1] 100 MG tablet 100 mg PO DAILY lovastatin 40 MG tablet 40 mg PO HS acyclovir 400 MG tablet 800 mg PO DAILY triamcinolone acetonide 15 GM ointment 1 ea Topical DIRECTED PRN hydrochlorothiazide 25 MG tablet 12.5 mg PO DAILY celecoxib [Celebrex] 400 MG capsule 400 mg PO DAILY duloxetine [Cymbalta] 60 MG capsule,delayed release(DR/EC) 60 mg PO BID methocarbamol 500 mg tablet 500 mg PO Q6H PRN (Reason: muscle spasm) Qty: 14 0RF dicyclomine 20 mg tablet 20 mg PO TID PRN (Reason: pain) Qty: 14 0RF aspirin [Aspir-81] 81 mg Tablet,Delayed Release (Dr/Ec) 81 mg PO DAILY sildenafil 100 mg tablet 100 mg PO DIRECTED PRN tamsulosin 0.4 mg capsule 0.8 mg PO HS quetiapine [Seroquel] 50 MG tablet 50 mg PO HS acetaminophen 500 mg tablet 500 mg PO Q6H PRN PRN (Reason: pain) Qty: 40 3RF Discontinued hydrocodone-acetaminophen 5-325 mg tablet 1 tab PO Q6H PRN (Reason: pain) Qty: 6 0RF Discharge Instructions Stand Alone Forms: Heather Corcoran Tunnel Release Referrals: Nick Romero MD [ [facility]] - Activity:: Elevate Remove Dressings/Wound Care:: 48 hours Shower/Bathe:: 48 hours Activity:: Activity as Tolerated Diet:: As Tolerated DS: Diagnosis Discharge Diagnosis (1) Carpal tunnel syndrome of left wrist: Status: Acute
[2022-04-14 11:00] VITALS: BP 107/69; PULSE 71; RESP 16; TEMP 36; O2SAT 95
[2022-04-14 11:34] VITALS: BP 103/61; PULSE 64; RESP 18; TEMP 36.2; O2SAT 98
--- NOTE | 2022-04-14 11:36 | W.ANESPOSTOP ---
Postoperative Evaluation Date, Time and Location Date Performed: 04/14/22 Time Performed: 11:36 Patient Location: Day Surgery Unit Vital Signs Most Recent Imported Vital Signs: Most Recent Vital Signs Temp Pulse Resp BP Pulse Ox 36 C L 71 16 107/69 95 04/14/22 11:00 04/14/22 11:00 04/14/22 11:00 04/14/22 11:00 04/14/22 11:00 Pain Score Most Recent Pain Score: Most Recent Pain Score Pain Level 0 04/14/22 11:00 Assessment Mental Status: Awake (Alert & Oriented to Patient Baseline) Airway and Respiratory Function: Patent airway with normal (patient baseline) respiratory exam Cardiovascular Function: Hemodynamically Stable Hydration Status: Adequately Hydrated Nausea & Vomiting: No Nausea or Vomiting Pain: Pt. Denies Any Pain Peripheral Nerve Block: Patient did not receive a nerve block
--- NOTE | 2022-04-15 11:03 | W.PM.OP ---
Date of service: 04/14/22 Time of Service: 12:00 Operative Note Operative Note DATE OF PROCEDURE: 04/14/22 PRE-OP DIAGNOSIS: Left Carpal Tunnel Syndrome POST-OP DIAGNOSIS: same PROCEDURE: Left Endoscopic Carpal Tunnel Release SURGEON: Nick Romero ANESTHESIA TYPE: General:No Airway Refer to Anesthesia Record ESTIMATED BLOOD LOSS: 0 PATHOLOGY: none sent TOURNIQUET TIME: 5 COMPLICATIONS: None Patient was transported to: same day Patient's condition: stable Indications: I have seen Dean in clinic for symptoms of carpal tunnel syndrome. The numbness, tingling, and pain limited function. He previously underwent a right carpal tunnel release with excellent results. Clinical exam findings with nerve conduction tests confirmed the diagnosis of carpal tunnel syndrome. Nonoperative measures such as bracing, time, activity modifications had been tried but disability and pain persisted. I discussed carpal tunnel release with the patient. I reviewed the risks of the procedure to include, but not limited to, bleeding, infection, pain, stiffness, incomplete release, damage to nerves or vessels, persistent numbness, recurrence. Despite these risks, the patient elected to proceed. Findings: There was tightened carpal tunnel. This was dilated and released successfully with the endoscopic with increased space within the tunnel. The antebrachial fascia was released proximally freeing the median nerve at the wrist. Procedure Description: Dean was greeted in the preoperative holding area where the correct side was identified and marked. The consent was reviewed with the patient and signed. The history and physical was updated. All questions were answered. He was taken back to the operating room. The patient was placed into the supine position on the operating room table with the left arm on an arm board. A nonsterile tourniquet was placed high onto the arm. All bony prominences were well padded. Prophylactic antibiotics in the form of Cefazolin were administered. The left arm was then prepped with Chloraprep and draped in a standard fashion with stockinette and extremity drape. A timeout to confirm correct identity, side and site, procedure, allergies, anesthesia, and medical concerns was performed. The surgical site was marked in the volar wrist creases in line with the radial border of the fourth ray. This area was anesthetized with approximately 6cc of 1% Lidocaine. The limb was then exsanguinated with an Esmarch. The skin was incised with a 15 blade, approximately 1cm. The skin only was cut and the deeper tissue was dissected bluntly with a tenotomy scissor, avoiding passing nerve and venous structures. The fascia was penetrated and opened bluntly. A two-prong skin hook was placed under this proximal fascial edge. A series of hamate finders were used to identify and dilate the carpal tunnel. Synovial elevator was used to free synovial attachments to the underside of the transverse carpal ligament. My thumb was kept in the palm to lukas the distal extent of the carpal tunnel and correctly position the hand. The [employer]aire endoscope was inserted without difficulty and without resistance. Excellent visualization showed horizontally running fibers of the transverse carpal ligament (TCL). The distal extent of the TCL was visualized and the end of the scope palpated with the thumb. The blade was elevated and withdrawn from distal to proximal. The TCL was split into two flaps. The endoscope was reinserted to confirm complete release and any remnant ligament was incised. The scope was withdrawn and the proximal aspect of the carpal tunnel was grossly inspected and appeared release with the median nerve visible. The antebrachial fascia at the level of the wrist was then freed from the overlying skin and then the underlying median nerve with blunt dissection. This was transected longitudinally for about 3cm proximal to the wrist incision. The wound was then irrigated with easy flow of irrigant distally and proximally. The incision was closed with a single 4-0 Nylon suture. The wound was dressed with Xeroform, Gauze, Kerlix and Patricio. The tourniquet was deflated with the initial dressing and held with some pressure. Blood flow returned easily to all digits with capillary refill less than 2 seconds. The patient tolerated the procedure well and was returned to the Same Day Surgery area in a stable condition suffering no known complication.
== END 2022-04-14 11:45 | disposition home or self-care (01) ==
PROVIDERS: PCP Physician Assistant; Visit Provider Student in an Organized Health Care Education/Training Program
PROC: 01N54ZZ Release Median Nerve, Percutaneous Endoscopic Approach (ICD-10-PCS; CPT 29848; principal; 2022-04-14 11:00)
DX: G56.02 Carpal tunnel syndrome, left upper limb (principal)
CPT/HCPCS: 29848; J0690; J2704; J3010

== ENCOUNTER → 2022-04-22 10:46 | Outpatient (BNVA) | payer MEDICARE, OTHER, SELFPAY | PROVIDERS: PCP Physician Assistant; Referring Provider Physician Assistant; Visit Provider Student in an Organized Health Care Education/Training Program | DX: Z47.89 Encounter for other orthopedic aftercare (principal); G56.02 Carpal tunnel syndrome, left upper limb; G56.01 Carpal tunnel syndrome, right upper limb ==

== ENCOUNTER 2022-05-11 02:09 | Outpatient (CLI) | payer MEDICARE, OTHER, SELFPAY ==
[2022-05-12 15:30] LABS: PSA, Ultrasensitive 4.9 ng/mL (<= 4.5)
== END 2022-05-11 02:10 | disposition home or self-care (01) ==
PROVIDERS: PCP Physician Assistant; Visit Provider Nurse Practitioner Adult Health
DX: R97.20 Elevated prostate specific antigen [PSA] (principal)
CPT/HCPCS: 36415; 84153

== ENCOUNTER → 2023-02-09 08:14 | Outpatient (BNVA) | payer MEDICARE, OTHER, SELFPAY | PROVIDERS: PCP Physician Assistant; Referring Provider Physician Assistant; Visit Provider Psychiatry & Neurology Neurology | DX: G62.89 Other specified polyneuropathies (principal); E61.7 Deficiency of multiple nutrient elements; K90.0 Celiac disease; R42 Dizziness and giddiness; G25.0 Essential tremor; G56.01 Carpal tunnel syndrome, right upper limb; G56.02 Carpal tunnel syndrome, left upper limb | CPT/HCPCS: 99214 ==

== ENCOUNTER 2023-03-28 11:55 | Outpatient (REF) | payer MEDICARE, OTHER, SELFPAY ==
[2023-03-28 15:34] LABS: ALT 32 U/L (16-63); AST 27 U/L (15-37); Albumin 3.9 g/dL (3.4-5.0); Alkaline Phosphatase 85 U/L (46-116); Anion Gap 12.6 mmol/L (3-11); BUN 19 mg/dL (7-18); Bilirubin, Total 0.3 mg/dL (0.2-1.0); CO2 22.4 mmol/L (21.0-32.0); CREATININE 1.2 mg/dL (0.70-1.30); Calculated LDL 100 mg/dL (<100); Chloride 104 mmol/L (98-107); Cholesterol 165 mg/dL (<200); Estimated GFR 65.46 (mL/min/1.73m2); Glucose 159 mg/dL (74-106); HDL Cholesterol 46 mg/dL (40-60); Potassium 4.3 mmol/L (3.5-5.1); Sodium 139 mmol/L (136-145); Total Protein 7.1 g/dL (6.4-8.2); Triglyceride 97 mg/dL (<150)
[2023-03-28 15:48] LABS: Hemoglobin A1C 5.7 % (<5.7)
[2023-03-29 09:24] LABS: PSA, Diagnostic 7.8 ng/mL (<=4.5)
== END 2023-03-28 11:56 | disposition home or self-care (01) ==
LOC: NCHCN 11:55
PROVIDERS: PCP Physician Assistant; Visit Provider Physician Assistant
DX: I10 Essential (primary) hypertension (principal); R73.03 Prediabetes; R97.20 Elevated prostate specific antigen [PSA]; E78.5 Hyperlipidemia, unspecified
CPT/HCPCS: 80053; 80061; 83036; 84153

== ENCOUNTER 2023-08-04 08:53 | Emergency (ER) | payer MEDICARE, OTHER, SELFPAY ==
--- NOTE | 2023-08-04 09:30 | DI.CT_ITS ---
Exam(s) CT UPPER EXTREMITY LT WO EXAM: CT UPPER EXTREMITY LT WO CLINICAL HISTORY: concern for distal bicep tear TECHNIQUE: Imaging Protocol: Axial computed tomography images with coronal and sagittal reformatted images were created and reviewed. CONTRAST MATERIAL: Intravenous: Omnipaque 350 Contrast volume:structured data in ml Contrast route:I V - Oral: yes / no COMPARISON: None FINDINGS: Osseous: No fractures Soft Tissues: Significant abnormal findings related to the distal biceps tendon consistent with sign ificant distal biceps tendon tearing. IMPRESSION: Findings consistent with distal biceps tendon tear. Called by myself to ER provider. RADIATION DOSE DELIVERED: Total DLP DATA REPOSITORY: All CT scans at this facility are submitted to the National Radiology Data Registry (NRDR) Dose Index Registry (DIR) with the [employer] (A[employer]). RADIATION OPTIMIZATION: All CT scans at this facility use at least one of these dose optimization te chniques: automated exposure control; mA and/or kV adjustment per patient size (includes targeted exa ms where dose is matched to clinical indication); or iterative reconstruction.
--- NOTE | 2023-08-04 09:40 | W.ORTHOCONSU ---
Date of service: 08/04/23 Time of Service: 09:40 Assessment and Plan Assessment and plan (1) Traumatic rupture of left distal biceps tendon: Status: Acute Assessment and plan: 67-year-old male 1 day status post left distal biceps rupture Patient reports lifting injury last night with obvious pain and deformity of the left antecubital elbow distal biceps. Pain about the distal biceps and cramping in the muscle. Known history seen in my office 2020 left proximal biceps rupture and partial rotator cuff tearing with moderate persistent symptoms and have been worsening and patient was thinking of coming back into the office. Some vague numbness and tingling through the forearm into the left hand and fingers consistent with baseline. [id number], does not really do any heavy lifting, but would like the best functional result. Still works cleaning the different tasks. Left elbow shows ecchymosis over the antecubital area and severe tenderness attempting to palpate the radial tuberosity. Probable skin pucker sign from the biceps tendon. Weak and painful supination with the elbow bent 90 degrees. Difficult to appreciate biceps deformity as it is probably chronically low from the proximal rupture although the patient does state it definitely appears change now with the new distal rupture. Chronic baseline medial epicondyle tenderness. Negative Tinel over the ulnar nerves. Nontender posteriorly and laterally. Wrist and hand neurovascular intact. Radial pulse 1+ CT scan done left elbow arm as the patient cannot have an MRI due to spinal cord stimulator showing probable full thickness rupture distal biceps tendon. No other pathology appreciated. Discussed thoroughly, patient interested in surgical repair, reviewed how this is not always necessary given his somewhat advanced age, relatively low demand, nondominant side. We reviewed potential surgical technique, rehab, and recovery timelines. Recommend sling and follow-up in a few days outpatient. We will discuss again in my office followed by surgery if indicated. PFSH All Active Problems (Updated 08/04/23 @ 12:40 by Mike Vallejo MD) Biceps tendon tear (Acute) Traumatic rupture of left distal biceps tendon (Acute 08/03/23) Orthostatic dizziness (Acute) Impingement syndrome of left shoulder (Acute) Bursitis of left shoulder (Acute) Traumatic tear of left rotator cuff (Acute) Rupture of left proximal biceps tendon (Acute ~05/2020) Personal history of colonic polyps (Acute 01/04/13) Peripheral neuropathy (Acute 04/15/14) Celiac disease (Acute) Medical History Chronic low back pain Chronic pain Depression Dysgeusia (01/31/17) Dysosmia (01/31/17) Hypercholesterolemia Hypertension Osteoarthritis Psoriasis Surgical History Carpal tunnel syndrome of left wrist S/P ECTR: 04/14/2022 Carpal tunnel syndrome of right wrist S/P ECTR: 04/07/2022 Hemorrhoidal Banding Hemorrhoidectomy MULTIPLE BACK OPERATIONS NERVE STIMULATOR IMPLANTATION S/P laparoscopic fundoplication Total replacement of hip BILATERAL Family History Mother No problems noted. Father No problems noted. Sister No problems noted. Sister No problems noted. Sister No problems noted. Sister No problems noted. Brother No problems noted. Brother No problems noted. 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
--- NOTE | 2023-08-04 09:46 | W.ED.GENAD ---
Discharge Plan Disposition Patient Disposition: Home Condition: Stable Discharge Details Chief Complaint: Orthopedic Clinical Impression: Biceps tendon tear Primary Care Provider: Kurt Le ED Provider: Mike Vallejo Home Meds and New Rx's Prescriptions: No Action omeprazole 20 mg capsule,delayed release(DR/EC) 40 mg PO DAILY bupropion HCl [Wellbutrin XL] 150 mg tablet extended release 24 hr 150 mg PO QAM multivitamin [Daily Multi-Vitamin] 1 EACH tablet 1 ea PO DAILY amoxicillin 500 MG capsule 2,000 mg PO PRN DENTAL magnesium oxide 400 MG tablet 400 mg PO DAILY Glucosamine Complex-MSM 1 EACH capsule 1 ea PO DAILY cholecalciferol (vitamin D3) 2,000 UNIT tablet 2,000 unit PO DAILY calcium carbonate-vitamin D3 1 EACH capsule 1 ea PO DAILY cyanocobalamin (vitamin B-12) 2,500 MCG tablet,chewable 1,000 mcg PO DAILY MEDICAL MARIJUANA Inhalation PRN 0RF thiamine HCl (vitamin B1) [Vitamin B-1] 100 MG tablet 100 mg PO DAILY lovastatin 40 MG tablet 40 mg PO HS acyclovir 400 MG tablet 800 mg PO DAILY triamcinolone acetonide 15 GM ointment 1 ea Topical DIRECTED PRN celecoxib [Celebrex] 400 MG capsule 400 mg PO DAILY duloxetine [Cymbalta] 60 MG capsule,delayed release(DR/EC) 60 mg PO DAILY dicyclomine 20 mg tablet 20 mg PO TID PRN (Reason: pain) Qty: 14 0RF aspirin [Aspir-81] 81 mg Tablet,Delayed Release (Dr/Ec) 81 mg PO DAILY sildenafil 100 mg tablet 100 mg PO DIRECTED PRN tamsulosin 0.4 mg capsule 0.8 mg PO HS quetiapine [Seroquel] 50 MG tablet 50 mg PO HS acetaminophen 500 mg tablet 500 mg PO Q6H PRN PRN (Reason: pain) Qty: 40 3RF Discharge Instructions Additional Instructions: Please follow-up in orthopedic clinic on Tuesday for further evaluation. Referrals: Rodríguez Lowry MD [ [facility] ST[facility]FF PHYSICIAN] - 08/09/23 HPI General Date/Time Provider Initiated Documentation: 08/04/23 09:36. HPI Narrative: 67-year-old male history of left proximal biceps tear treated with expectant management, presents after feeling a pop in his distal bicep when lifting a trash bag last night, left side, pain to distal bicep region Related Data Home Medications Medication Instructions Recorded Confirmed acyclovir 400 mg tablet 800 mg PO DAILY 09/13/12 08/04/23 celecoxib 400 mg capsule (Celebrex) 400 mg PO DAILY 09/13/12 08/04/23 duloxetine 60 mg capsule,delayed 60 mg PO DAILY 09/13/12 08/04/23 release (Cymbalta) lovastatin 40 mg tablet 40 mg PO HS 09/13/12 08/04/23 triamcinolone acetonide 0.1 % 1 ea topical DIRECTED PRN 09/13/12 08/04/23 topical ointment amoxicillin 500 mg capsule 2,000 mg PO PRN DENTAL 01/16/18 08/04/23 calcium carbonate 600 mg-vitamin 1 ea PO DAILY 01/16/18 08/04/23 D3 10 mcg (400 unit) capsule cholecalciferol (vitamin D3) 50 2,000 unit PO DAILY 01/16/18 08/04/23 mcg (2,000 unit) tablet cyanocobalamin (vitamin B-12) 1,000 mcg PO DAILY 01/16/18 08/04/23 2,500 mcg chewable tablet [id number] 1 ea PO DAILY 01/16/18 08/04/23 capsule (Glucosamine Complex-MSM capsule) magnesium oxide 400 mg (241.3 mg 400 mg PO DAILY 01/16/18 08/04/23 magnesium) tablet multivitamin (Daily Multi-Vitamin 1 ea PO DAILY 01/16/18 08/04/23 tablet) thiamine HCl (vitamin B1) 100 mg 100 mg PO DAILY 01/16/18 08/04/23 tablet (Vitamin B-1) omeprazole 20 mg capsule,delayed 40 mg PO DAILY 06/11/19 08/04/23 release aspirin 81 mg tablet,delayed 81 mg PO DAILY 01/09/20 08/04/23 release (Aspir-) quetiapine 50 mg tablet (Seroquel) 50 mg PO HS 01/09/20 08/04/23 sildenafil 100 mg tablet 100 mg PO DIRECTED PRN 01/09/20 08/04/23 tamsulosin 0.4 mg capsule 0.8 mg PO HS 01/09/20 08/04/23 dicyclomine 20 mg tablet 20 mg PO TID PRN pain #14 tabs 03/17/22 08/04/23 acetaminophen 500 mg tablet 500 mg PO Q6H PRN PRN pain #40 tabs 04/07/22 02/09/23 bupropion HCl 150 mg 24 hr tablet, 150 mg PO QAM 02/09/23 08/04/23 extended release (Wellbutrin XL) Previous Rx's Medication Instructions Recorded dicyclomine 20 mg tablet 20 mg PO TID PRN pain #14 tabs 03/17/22 acetaminophen 500 mg tablet 500 mg PO Q6H PRN PRN pain #40 tabs 04/07/22 Allergies Allergy/AdvReac Type Severity Reaction Status Date / Time gluten AdvReac Intermediate stomach Verified 08/04/23 09:48 upset,pain General Stated Complaint: Orthopedic MARILYNN: 3 Review of Systems Narrative: Review of Systems Constitutional: negative Eyes: negative ENT: negative Cardiovascular: negative Respiratory: negative Gastrointestinal: negative : negative Musculoskeletal: Arm pain Skin: negative Neurologic: negative Psych: negative Exam Narrative Exam Narrative: Physical Examination General: alert, awake, cooperative, resting comfortably, no acute distress HEENT: normocephalic, atraumatic Neck: supple, trachea midline; full ROM Chest: normal to inspection Respiratory: normal respiratory effort, speaking in full sentences Neuro: AAOx3, normal speech, moving all extremities Extremities: Left upper extremity: Point tenderness over distal medial bicep tendon, patient able to flex against resistance with discomfort, distal bicep tendon squeeze test demonstrating decreased supination, drop arm test smooth and largely nonpainful, mild to moderate pain with supination of forearm, prominence of bicep musculature anterior medially; full flexion extension of fingers, full flexion extension at wrist, shoulder motor function intact, median radial and ulnar nerve distribution intact, strong radial pulse, soft compartments Psych: Appropriate mood and affect Course Vital Signs Vital signs: Respiratory Effort Normal 08/04/23 09:45 Medical Decision Making 67-year-old male presents after acute pain to distal left bicep region after lifting a bag last night, prominence to anterior medial bicep region, patient does have intact flexion at elbow against resistance, decreased supination of forearm with bicep squeeze test, normal arm drop test, median radial ulnar sensory and motor distribution intact, flexion extension and fingers hand wrist and shoulder intact, soft compartments, warm well-perfused strong radial pulse; high clinical suspicion for distal bicep tendon tear and/or rupture; discussed case with Dr. Lowry of orthopedic surgery initial plan was to pursue MRI however patient has a spinal stimulator that precludes such testing, will obtain stat CT elbow and upper arm to better characterize injury and plan for possible operative repair 12: 38 patient to be placed in sling. Will be seen by Dr. Lowry in orthopedic clinic on Tuesday to consider repair. Quality:SDOH Health Related Social Needs: No Data to Display PFSH All Active Problems (Updated 08/04/23 @ 12:40 by Mike Vallejo MD) Biceps tendon tear (Acute) Traumatic rupture of left distal biceps tendon (Acute 08/03/23) Orthostatic dizziness (Acute) Impingement syndrome of left shoulder (Acute) Bursitis of left shoulder (Acute) Traumatic tear of left rotator cuff (Acute) Rupture of left proximal biceps tendon (Acute ~05/2020) Personal history of colonic polyps (Acute 01/04/13) Peripheral neuropathy (Acute 04/15/14) Celiac disease (Acute) Medical History Chronic low back pain Chronic pain Depression Dysgeusia (01/31/17) Dysosmia (01/31/17) Hypercholesterolemia Hypertension Osteoarthritis Psoriasis Surgical History Carpal tunnel syndrome of left wrist S/P ECTR: 04/14/2022 Carpal tunnel syndrome of right wrist S/P ECTR: 04/07/2022 Hemorrhoidal Banding Hemorrhoidectomy MULTIPLE BACK OPERATIONS NERVE STIMULATOR IMPLANTATION S/P laparoscopic fundoplication Total replacement of hip BILATERAL Family History Mother No problems noted. Father No problems noted. Sister No problems noted. Sister No problems noted. Sister No problems noted. Sister No problems noted. Brother No problems noted. Brother No problems noted. 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
== END 2023-08-04 12:58 | disposition home or self-care (01) ==
PROVIDERS: Emergency Provider Emergency Medicine; PCP Physician Assistant
DX: S46.212A Strain of muscle, fascia and tendon of other parts of biceps, left arm, initial encounter (principal); I10 Essential (primary) hypertension; E78.00 Pure hypercholesterolemia, unspecified; Z79.82 Long term (current) use of aspirin; Z96.82 Presence of neurostimulator; Z87.891 Personal history of nicotine dependence; X50.0XXA Overexertion from strenuous movement or load, initial encounter; Y93.89 Activity, other specified; Y92.018 Other place in single-family (private) house as the place of occurrence of the external cause
CPT/HCPCS: 99283; 99285; 73200; 99284

== ENCOUNTER → 2023-08-09 10:08 | Outpatient (BNVA) | payer MEDICARE, OTHER, SELFPAY | PROVIDERS: PCP Physician Assistant; Referring Provider Physician Assistant; Visit Provider Student in an Organized Health Care Education/Training Program | DX: S46.212A Strain of muscle, fascia and tendon of other parts of biceps, left arm, initial encounter (principal); X58.XXXA Exposure to other specified factors, initial encounter | CPT/HCPCS: 99214 ==

== ENCOUNTER 2023-08-11 13:21 | Day surgery (SDC) | payer MEDICARE, OTHER, SELFPAY ==
[2023-08-11] VITALS (12 sets, daily range): BP systolic 122–159; BP diastolic 72–118; PULSE 55–91; RESP 12–18; TEMP 36.3–36.6; O2SAT 95–98; BMI 30.7
--- NOTE | 2023-08-11 07:21 | PDOC.DSDIS_ITS ---
Date of service: 08/11/23 Time of Service: 17:30 Discharge Plan Disposition Patient Disposition: Home Condition: Stable Discharge Details Attending Provider: Rodríguez Lowry Primary Care Provider: Kurt Le Home Meds and New Rx's Prescriptions: Continued omeprazole 20 mg capsule,delayed release(DR/EC) 40 mg PO DAILY bupropion HCl [Wellbutrin XL] 150 mg tablet extended release 24 hr 150 mg PO QAM multivitamin [Daily Multi-Vitamin] 1 EACH tablet 1 ea PO DAILY amoxicillin 500 MG capsule 2,000 mg PO PRN DENTAL magnesium oxide 400 MG tablet 400 mg PO DAILY Glucosamine Complex-MSM 1 EACH capsule 1 ea PO DAILY cholecalciferol (vitamin D3) 2,000 UNIT tablet 2,000 unit PO DAILY calcium carbonate-vitamin D3 1 EACH capsule 1 ea PO DAILY cyanocobalamin (vitamin B-12) 2,500 MCG tablet,chewable 1,000 mcg PO DAILY MEDICAL MARIJUANA Inhalation PRN 0RF thiamine HCl (vitamin B1) [Vitamin B-1] 100 MG tablet 100 mg PO DAILY lovastatin 40 MG tablet 40 mg PO HS acyclovir 400 MG tablet 800 mg PO DAILY triamcinolone acetonide 15 GM ointment 1 ea Topical DIRECTED PRN celecoxib [Celebrex] 400 MG capsule 400 mg PO DAILY duloxetine [Cymbalta] 60 MG capsule,delayed release(DR/EC) 60 mg PO DAILY aspirin [Aspir-81] 81 mg Tablet,Delayed Release (Dr/Ec) 81 mg PO DAILY sildenafil 100 mg tablet 100 mg PO DIRECTED PRN tamsulosin 0.4 mg capsule 0.8 mg PO HS quetiapine [Seroquel] 50 MG tablet 50 mg PO HS Discharge Instructions Additional Instructions: Surgery: Left distal biceps tendon repair Activity: Nonweightbearing left upper extremity. Protect elbow and biceps avoiding any vigorous lifting, reaching, or twisting of the forearm. Use sling to support forearm and maintain elbow bent about 90 degrees when up and about or out of the home. Light use of hand and fingers okay. Gently increase elbow range of motion to full. A physical therapy prescription will be sent to start in about 3 weeks Prescriptions: None Resume daily aspirin tomorrow morning Celecoxib home medication for moderate pain and swelling You may use [id number]-pyviqum Tylenol (acetaminophen) as needed for mild pain. Dressings: Leave Band-Aid in place for 5 days. May then remove and leave open to air or cover incision with another wide Band-Aid. Leave the skin glue in place until it falls off. Keep clean and dry for 7 days. Follow-up: 10-[address] Lowry You may take off the leg compression stockings this evening at home. You may also leave them on a few days longer if you have a history of leg swelling or ed rhonda. Let us know right away if you develop any redness, drainage, fevers, chest pain, or trouble breathing. Do not drink alcohol or drive for at least 24 hours after anesthesia. Please call the office during business hours with any questions or concerns. As we reviewed, please monitor the left hand for signs of poor blood flow like increasing pain, blue or dark color, numbness or tingling, which could be a vascular emergency. Call the hospital with any of these concerns so we can review over the phone and potentially direct you to the most appropriate emergency room. Stand Alone Forms: Anesthesia Discharge Inst., Kailyns.Nerve Block Instructions, Adi Viramontes ([facility]) Discharge Orders Discharge Orders: Discharge Order (Routine); Ordered 08/11/23 Ordered By: Robbie Delcid DS: Diagnosis Discharge Diagnosis (1) Traumatic rupture of left distal biceps tendon: Status: Acute
--- NOTE | 2023-08-11 13:00 | DI.RAD_ITS ---
Exam(s) XR HUMERUS LT EXAM: XR HUMERUS LT CLINICAL HISTORY: Traumatic rupture of left distal biceps tendon. TECHNIQUE: 2D digital imaging was performed. COMPARISON: No exams were available for comparison FINDINGS: Fluoroscopy provided during tendon repair. See procedure report for details. Total fluoroscopy time 4.4 seconds IMPRESSION: Radiation exposure index/cumulative dose: Ka,r= 0.1113 mGy DATA REPOSITORY: RADIATION DOSE DELIVERED:
--- NOTE | 2023-08-11 13:42 | W.ANESPRE ---
General Info Date of Service Date Performed: 08/11/23 Height: 6 ft 2 in Weight: 108.409 kg Body Mass Index (BMI): 30.7 Surgical Procedure: Operation Date: 08/11/23 14:40 Proposed Procedure Side Surgeon p Distal Bicep Tendon Repair Left Rodríguez Lowry MD Actual Procedure Side Surgeon p Distal Bicep Tendon Repair Left Rodríguez Lowry MD Pre-Op Diagnosis Post-Op Diagnosis Traumatic rupture of left distal biceps tendon Meds Allergies and Home Medications Allergies Allergy/AdvReac Type Severity Reaction Status Date / Time gluten AdvReac Intermediate stomach Verified 08/11/23 13:44 upset,pain Home Medication Medication Instructions Recorded acyclovir 400 mg tablet 800 mg PO DAILY 09/13/12 celecoxib 400 mg capsule (Celebrex) 400 mg PO DAILY 09/13/12 duloxetine 60 mg capsule,delayed 60 mg PO DAILY 09/13/12 release (Cymbalta) lovastatin 40 mg tablet 40 mg PO HS 09/13/12 triamcinolone acetonide 0.1 % 1 ea topical DIRECTED PRN 09/13/12 topical ointment amoxicillin 500 mg capsule 2,000 mg PO PRN DENTAL 01/16/18 calcium carbonate 600 mg-vitamin 1 ea PO DAILY 01/16/18 D3 10 mcg (400 unit) capsule cholecalciferol (vitamin D3) 50 2,000 unit PO DAILY 01/16/18 mcg (2,000 unit) tablet cyanocobalamin (vitamin B-12) 1,000 mcg PO DAILY 01/16/18 2,500 mcg chewable tablet [id number]-[id number]-ehkcqrawq-vitC 1 ea PO DAILY 01/16/18 capsule (Glucosamine Complex-MSM capsule) magnesium oxide 400 mg (241.3 mg 400 mg PO DAILY 01/16/18 magnesium) tablet multivitamin (Daily Multi-Vitamin 1 ea PO DAILY 01/16/18 tablet) thiamine HCl (vitamin B1) 100 mg 100 mg PO DAILY 01/16/18 tablet (Vitamin B-1) omeprazole 20 mg capsule,delayed 40 mg PO DAILY 06/11/19 release aspirin 81 mg tablet,delayed 81 mg PO DAILY 01/09/20 release (Aspir-) quetiapine 50 mg tablet (Seroquel) 50 mg PO HS 01/09/20 sildenafil 100 mg tablet 100 mg PO DIRECTED PRN 01/09/20 tamsulosin 0.4 mg capsule 0.8 mg PO HS 01/09/20 bupropion HCl 150 mg 24 hr tablet, 150 mg PO QAM 02/09/23 extended release (Wellbutrin XL) Current Visit Medications: Current Medications Generic Name Dose Route Start Last Admin Trade Name Freq PRN Reason Stop Dose Admin Ringer's Solution 1,000 mls @ 30 mls/hr 08/11/23 06:00 IV 08/11/23 23:59 INFUSION SEAMUS Cefazolin Sodium/Dextrose 2 gm in 50 mls @ 100 mls/hr 08/11/23 06:00 Ancef Duplex IVPB 08/11/23 23:59 PREOP SEAMUS Tranexamic Acid/Sodium Chloride 100 mls @ 600 mls/hr 08/11/23 06:00 IVPB 08/11/23 23:59 PREOP SEAMUS IV Miscellaneous Supplies 1 each 08/11/23 06:00 Iv Access IV 08/11/23 23:59 DIRECTED SEAMUS Oxycodone HCl 0 mg 08/11/23 07:20 Oxycodone 5 Mg Tab PO 09/10/23 07:19 Q3H PRN PRN Pain Sodium Chloride 0 ml 08/11/23 06:00 Normal Saline Flush 10 Ml Syr IV 08/11/23 23:59 PRN PRN Sodium Chloride 0 ml 08/11/23 06:00 Normal Saline 10 Ml Vial IJ 08/11/23 23:59 DIRECTED PRN Sterile Water 0 ml 08/11/23 06:00 Water,Injection,Sterile 10 Ml Vial IJ 08/11/23 23:59 DIRECTED PRN PFSH Active Problems Active Problems: Problem Status Onset Code Traumatic rupture of left distal biceps tendon 08/03/23 S46.212A Orthostatic dizziness R42 Impingement syndrome of left shoulder M75.42 Bursitis of left shoulder M75.52 Traumatic tear of left rotator cuff S46.012A Rupture of left proximal biceps tendon ~05/2020 S46.212A Celiac disease K90.0 Personal history of colonic polyps 01/04/13 Z86.010 Peripheral neuropathy 04/15/14 G62.9 Medical History Medical History Dysgeusia (01/31/17) Dysosmia (01/31/17) Chronic low back pain Osteoarthritis Depression Psoriasis Hypertension pt . denies Hypercholesterolemia Chronic pain Medical History Comments:: Spinal cord stimulator [facility] [employer] brand implanted 06/12/20 Surgical History Surgical History Carpal tunnel syndrome of right wrist S/P ECTR: 04/07/2022 Carpal tunnel syndrome of left wrist S/P ECTR: 04/14/2022 S/P laparoscopic fundoplication Total replacement of hip BILATERAL NERVE STIMULATOR IMPLANTATION MULTIPLE BACK OPERATIONS Hemorrhoidectomy Hemorrhoidal Banding Tobacco Smoking/Tobacco Use Status: Former Tobacco Use Alcohol Alcohol Intake: current Alcohol intake frequency: holidays/special occasions only Substance Use Substance use: Daily Substance use type: marijuana Vital Signs and Lab Results Vital Signs Most Recent Vital Signs in EMR: Most Recent Vital Signs Temp 36.3 C L 08/11/23 13:34 Lab Results Blood Type / Crossmatch: No Data to Display Complete Blood Count: No Data to Display Complete Metabolic Panel: No Data to Display Liver Function Panel: No Data to Display Coagulation Panel: No Data to Display Cardiac Panel: No Data to Display Arterial Blood Gas: No Data to Display Venous Blood Gas: No Data to Display Pancreas Panel: No Data to Display Thyroid Panel: No Data to Display Infectious Disease: No Data to Display Blood Cultures: No Data to Display Toxicology Panel: No Data to Display Imaging and Studies Imaging and Studies Study information below may be from another EMR and interpreted by another provider. Please see original notes in EMR for more complete details. EKG Summary: Conclusion Sinus rhythm...normal P axis, V-rate 60- 99 Physician: no stemi 03/13 Other Study Summary:: xray c spine reviewed and results in chart Anesthesia Assessment and Plan Anesthesia History Personal History: No History of Anesthesia Complications Family History: No Family History of Anesthesia Complications Exercise Tolerance Exercise Tolerance: Metabolic Equivalents>4 Pertinent Negatives Pertinent Negatives: No Symptoms of GERD, No Major Cardiovascular Symptoms or Complaints, No Major Pulmonary Symptoms or Complaints and No History of CVA/TIA Cardiac & Pulmonary Exam Cardiac Exam: Normal S1/S2 Heart Sounds Pulmonary Exam: Clear Bilateral Breath Sounds Implantable Cardiac Device Does patient have a Pacemaker or an ICD?: No Airway Exam Known Difficult Airway: No Mallampati Class: 3 Mouth Opening: Normal (> 3cm) Thyromental Distance: Greater than 3 cm Neck Range of Motion: Full ROM Neck Circumference: Normal Teeth Condition: Normal Dentition (8 teeth of own, none loose), Removable Dentures/Plates Upper and Removable Dentures/Plates Lower ASA Classification ASA Score: ASA 2 Emergency Case?: No NPO Status NPO Status: NPO Clears >2 hours, Solids >8 hours Anesthesia Plan Resuscitation Status: Full Code Anesthesia Technique: General Anesthesia Airway Planned: Endotracheal Tube Pain Management: Surgeon and patient request nerve block Monitors Used: Standard Monitors Preoperative Comments:: discussed with pt his pre-existing peripheral neuropathy and minimal risk of further nerve issues
[2023-08-11] MEDS: Lactated Ringers 1,000 ML 30 ML IV (14:05)
--- NOTE | 2023-08-11 14:41 | W.ANESNERVE ---
Nerve Block Single Injection Procedure Date and Time Date Performed: 08/11/23 Procedure Start: 14:24 Location Where Procedure Performed Procedure Location: Day Surgery Unit Reason Performed: Postoperative Analgesia Requesting Provider: Rodríguez Lowry Timeout Performed Timeout Performed: Yes Monitoring Used ECG, Blood Pressure, SpO2 and See EMR for corresponding vital signs Sterility Sterility: Hand Hygiene, Surgical Cap, Surgical Mask, Sterile Gloves and Chlorhexidine Sedation Given During Procedure Sedation Given (Indicate Dose Given): Versed IV Dose:: 2mg Patient Mental Status Patient Mental Status: Sedate with meaningful communication Nerve Block 1st Nerve Block: Laterality: Left Block Type: Supraclavicular Ultrasound Image Saved?: Yes Needle / Catheter Used: 100mm SonoPlex II Local Anesthetic Bolus (Indicate Dose Given): Lidocaine used for local infiltration of skin, Injected in 3-5ml increments after negative blood aspiration, Bupivacaine 0.5% Dose:: 10mL and Exparel Dose:: 10mL Additives (Indicate Dose Given): None Ultrasound: Sterile probe cover and gel used Nerve Stimulator: Supplement to Ultrasound use Paresthesia: None Procedure Tolerated: No Complications and Patient tolerated well Procedure Outcome: Successful Performed By: Avril Yang Supervised By: Danitza Maza
[2023-08-11] MEDS: ceFAZolin 2 GM/50 ML BAG IVPB (14:59)
--- NOTE | 2023-08-11 16:52 | W.PM.OP ---
Date of service: 08/11/23 Time of Service: 14:30 Operative Note Operative Note DATE OF PROCEDURE: 08/11/23 PRE-OP DIAGNOSIS: Left distal biceps tendon rupture POST-OP DIAGNOSIS: same PROCEDURE: Left distal biceps tendon repair, CPT #04617 SURGEON: Rodríguez Lowry [employer] OPERATOR: Robbie Delcid ANESTHESIA TYPE: Local By Surgeon, General LMA/ETT and Primary Nerve Block Refer to Anesthesia Record ESTIMATED BLOOD LOSS: 15 TOURNIQUET TIME: 0 Patient was transported to: PACU Patient's condition: stable Indications: Please see complete medical record for details. Findings: Complete distal biceps tendon rupture with moderate retraction Procedure Description: In the operating room, general anesthesia was induced. The patient was positioned supine on the operating room table. All bony prominences were well-padded. Preoperative antibiotics were administered. The left elbow was prepped and draped in the usual sterile fashion. The correct patient, procedure, and side of the procedure were all verified prior to incision. Fluoroscopy was used to confirm volar start site over the radial tuberosity and full supination. 15 cc of 0.5% bupivacaine containing epinephrine was infiltrated about the planned longitudinal incision. Incision was carried through the skin, careful dissection used to avoid neurovascular structures while approaching the biceps tuberosity with the forearm maintained in full extension. There were numerous large crossing veins, some of which had to be coagulated. The zone of injury was bluntly encountered and then extended proximally and distally to expose a largely balled radial tuberosity with minimal tendon remnant. Next, the distal biceps tendon stump was attempted to be found. Unfortunately, the patient could not have an MRI so the tendon location was somewhat vague from the CT scan. Bluntly the tendon and was attempted to be felt about the surgical site and proximally. Additional veins had to be coagulated while searching for the tendon end. Part of the distal tendon fraying was identified at the proximalmost extent of the incision just past the antecubital crease. Some of the frame that led ulnarly near veins and brachial artery. While freeing up this part of the tendon a vein around the artery was likely torn and had to be coagulated. A branch or surrounding vessel from the artery ended up bleeding as well and pressure was quickly used proximally to gain control. The side of the artery with the bleeding was clamped with a tonsil proximal and distal and the artery inspected. It appeared intact, was pulsatile proximal and distal to the zone of injury, with the vein and small artery injury likely to the vasa vasorum or surrounding vessels of the brachial artery. This side vessel was carefully coagulated with a tonsil and Bovie. The clamp and pressure was removed. There was no additional bleeding. The larger main aspect of the vessel remained visibly pulsatile from proximal to distal. Warm saline was flushed the incision irrigated and inspection confirmed no more bleeding and continued active vessel function. The frayed tendon and that had been freed was then followed proximally and used to identify the large bulbous end of the distal biceps tendon. It was withdrawn up out of the incision with the arm in mild flexion. The end was trimmed of fraying and bulletized to fit in the planned socket. The fiber loop stitch was then used to secure the end of the tendon with 5 passes distally and a single more proximally and a locking manner. The tendon was ensured to fit and an 8 mm graft tube with slight additional trimming of some enlargement distally. The tendon was then placed back into the wound proximally. The radial tuberosity was then exposed with the forearm in full supination. An [employer] retractor was used radially taking care to avoid any retraction around the far side of the bicipital tuberosity. A baby [place] was placed ulnarly. Fluoroscopic assistance was used to confirm appropriate placement of the guidepin which was carefully drilled bicortically and then an 8 mm low-profile reamer passed over the pin drilling a socket in the unicortical fashion. Thorough irrigation was used to remove all bone debris. Soft tissue minimal distal biceps tendon remnant was dissected off the ulnar side of the socket to prevent interference with graft passage. The repair sutures were then loaded through the distal biceps button and then the repair tails were passed with a free needle back up through the end of the tendon a few centimeters in a modified tension slide manner. The button was then passed through the socket and just out the far side hole, flipped, and then the repair sutures used to slide and deliver the distal tendon into the socket with excellent fit and fixation strength with the elbow in mild flexion. C arm images were used to confirm appropriate position and button placement. Repair sutures were tied securing the repair. It was stable through full extension without any displacement. The wound was copiously irrigated normal saline. The venous and arterial injury was then inspected and completely dry without any bleeding at all. The vessel remained again pulsatile through the area of injury and coagulation. Subcutaneous tissue was closed using 2-0 Monocryl buried erupted. Skin closed using 3-0 Monocryl subcuticular running. Skin glue applied over the incision followed by a Mepilex Band-Aid. The extremity was then placed into a sling maintaining the elbow in about 9 degrees of flexion. The patient awoke from anesthesia without complication and was transferred to the recovery room in a stable condition.
--- NOTE | 2023-08-11 17:07 | W.ANESPOSTOP ---
Postoperative Evaluation Date, Time and Location Date Performed: 08/11/23 Time Performed: 17:07 Patient Location: Day Surgery Unit Vital Signs Most Recent Imported Vital Signs: Most Recent Vital Signs Temp Pulse Resp BP Pulse Ox 36.4 C L 55 L 13 155/81 H 95 08/11/23 17:00 08/11/23 17:00 08/11/23 17:00 08/11/23 17:00 08/11/23 17:00 Pain Score Most Recent Pain Score: Most Recent Pain Score Pain Level 0 08/11/23 17:00 Assessment Mental Status: Awake (Alert & Oriented to Patient Baseline) Airway and Respiratory Function: Patent airway with normal (patient baseline) respiratory exam Cardiovascular Function: Hemodynamically Stable Hydration Status: Adequately Hydrated Nausea & Vomiting: No Nausea or Vomiting Pain: Pt. Denies Any Pain Peripheral Nerve Block: Regional nerve block not resolved at time of post operative discharge
--- NOTE | 2023-08-11 17:33 | W.PM.PROGNOT ---
Date of Service Date of service: 08/11/23 Time of Service: 17:33 Assessment and Plan Assessment and plan (1) Traumatic rupture of left distal biceps tendon: Status: Acute Assessment and plan: 67-year-old male postop day #0 status post left distal biceps tendon repair Patient evaluated day surgery unit, no pain, happy, comfortable, and conversant. Intact sensory to about the level of the mid arm. Dense sensory block from the elbow down through wrist with some vague sensation intact lateral elbow and radial digits. Dense motor block below the elbow but able to demonstrate ulnar digit and wrist flexion and some limited thumb extension. Mepilex Band-Aid clean dry intact. Forearm completely soft. 1+ radial pulse somewhat somewhat difficult to palpate, it was difficult to palpate preoperatively, but now more difficult than the contralateral side. Pulse oximeter on the radial and ulnar digits shows good waveform similar to the contralateral side. Doppler radial and ulnar arteries with good sound similar to the contralateral side although not triphasic likely due to underlying vascular disease. Thoroughly discussed potential arterial injury versus spasm with the patient and his partner. No signs or symptoms of vascular compromise at this time. Reviewed signs and symptoms of a problem, which could be a vascular emergency. Patient and partner quite comfortable with discharge home and self?monitoring for what does not appear to be a problem. Our staff will call them tomorrow morning for an update. Objective Last Vital Signs Temp 97.5 F L 08/11/23 17:08 Pulse 56 L 08/11/23 17:08 Resp 18 08/11/23 17:08 BP 122/95 H 08/11/23 17:08 Pulse Ox 96 08/11/23 17:08 Time Spent with Patient Time Spent with Patient: <25 minutes Time was spent: preparing to see the patient(eg.review tests), ordering medications,tests, procedures, indepentently interpreting results and counseling the patient
== END 2023-08-11 18:07 | disposition home or self-care (01) ==
LOC: SUR 13:21
PROVIDERS: PCP Physician Assistant; Visit Provider Student in an Organized Health Care Education/Training Program
PROC: (CPT 24341; principal; 2023-08-11 14:30)
DX: S46.212A Strain of muscle, fascia and tendon of other parts of biceps, left arm, initial encounter (principal); X50.0XXA Overexertion from strenuous movement or load, initial encounter
CPT/HCPCS: 24342; 76000; 76942; 73060; C9290; J0131; J0665; J0690; J1100; J1805; J1885; J2001; J2250; J2371; J2405; J2704

== ENCOUNTER → 2023-08-24 09:21 | Outpatient (BNVA) | payer MEDICARE, OTHER, SELFPAY | PROVIDERS: PCP Physician Assistant; Referring Provider Physician Assistant; Visit Provider Student in an Organized Health Care Education/Training Program | DX: S46.212D Strain of muscle, fascia and tendon of other parts of biceps, left arm, subsequent encounter (principal); X58.XXXD Exposure to other specified factors, subsequent encounter ==

== ENCOUNTER 2023-09-28 12:12 | Outpatient (CLI) | payer MEDICARE, OTHER, SELFPAY ==
--- NOTE | 2023-09-28 08:15 | DI.RAD_ITS ---
Exam(s) XR SHOULDER LT COMPLETE 2+V EXAM: XR SHOULDER LT COMPLETE 2+V CLINICAL HISTORY: evaluate shoulder. TECHNIQUE: 2D digital imaging was performed of the left shoulder. Two images were obtained. Axilla ry and Grashey views were obtained. COMPARISON: CR,XR XR SHOULDER LT COMPLETE 2+V from 06/14/2020 FINDINGS: BONES: No acute fracture is present. No bony destructive lesion is seen. JOINTS: No dislocation present. The glenohumeral and acromioclavicular joints are well maintained. SOFT TISSUE: The visualized lungs are clear. IMPRESSION: No acute abnormality. DATA REPOSITORY: RADIATION DOSE DELIVERED:
== END 2023-09-28 12:13 | disposition home or self-care (01) ==
LOC: DIORS 12:16
PROVIDERS: PCP Physician Assistant; Visit Provider Student in an Organized Health Care Education/Training Program
DX: S46.012D Strain of muscle(s) and tendon(s) of the rotator cuff of left shoulder, subsequent encounter (principal); M75.52 Bursitis of left shoulder; M75.42 Impingement syndrome of left shoulder; S46.212D Strain of muscle, fascia and tendon of other parts of biceps, left arm, subsequent encounter; X58.XXXD Exposure to other specified factors, subsequent encounter
CPT/HCPCS: 73030

== ENCOUNTER → 2023-10-07 00:17 | Outpatient (CLI) | payer MEDICARE, OTHER, SELFPAY ==
--- NOTE | 2023-10-07 11:22 | DI.RAD_ITS ---
Exam(s) RF ARTHROGRAM RAD W CT OR MRI EXAM: RF ARTHROGRAM RAD W CT OR MRI CLINICAL HISTORY: pain,TRAUMATIC TEAR LT ROTATOR CUFF,TRAUMATIC RUPTURE,BURSITIS,S46.012D,. TECHNIQUE: 2D and realtime digital imaging was performed. CONTRAST MATERIAL: Water soluble contrast was utilized. COMPARISON: No exams were available for comparison FINDINGS: The Patient was greeted in the fluoroscopy room. The correct side was identified and the consent was reviewed with the patient and was signed. The patient was properly positioned on the fluoroscopy ta ble. The left shoulder was then prepped and draped. The left shoulder injection starting point was identified by the bony landmarks and fluoroscopy. The skin and soft tissue in the tract of the injec tion was anesthetized. A spinal needle was then inserted into the left shoulder joint under fluorosc opic guidance. A small amount of Omnipaque solution was injected to confirm intraarticular placement . Once confirmed, the left shoulder was injected with a solution containing (Omnipaque, and normal s césar.) A bandaid was placed on the injection site. The patient tolerated the procedure well and le ft the department in good condition.There is a CT to follow. IMPRESSION: Successful left shoulder arthrogram injection. RADIATION DOSE DELIVERED: Ka,r=0.60 mGy
[2023-10-07] MEDS: Omnipaque 300 MG/ML 10 ML BTL IJ (11:32)
--- NOTE | 2023-10-07 11:39 | DI.CT_ITS ---
Exam(s) CT UPPER EXTREMITY LT W EXAM: CT UPPER EXTREMITY LT W CLINICAL HISTORY: PAIN,TRAUMATIC RUPTURE LT BICEPS TENDON, RUPTURE LT BICEPS TENDON,BURSITIS,. TECHNIQUE: Imaging Protocol: Axial computed tomography images with coronal and sagittal reformatted images were created and reviewed. CONTRAST MATERIAL: Intra-articular contrast was administered prior to the examination. COMPARISON: CT CT UPPER EXTREMITY LT WO from 08/04/2023 FINDINGS: Bones: The osseous structures and articular surfaces are intact. Bony alignment is satisfactory. N o cellulitic or osteomyelitic changes are identified. There are mild degenerative changes seen at th e acromioclavicular joint. There is roughening of the undersurface of the acromion. There also mild cystic changes seen in the greater tuberosity. There is narrowing of the glenohumeral joint. No ly tic or sclerotic lesions are identified. Soft Tissues: There is a full-thickness tear through the supraspinatus tendon near its insertion site anteriorly. Contrast is seen in the subacromial subdeltoid bursa. There is contrast seen in the mag[place]on perior labrum suspicious for tear. The biceps anchor is not visualized suspicious for tear of the lo ng head of the biceps. The visualized lungs are clear. Delete IMPRESSION: 1. Full-thickness tear through the supraspinatus tendon anteriorly at its insertion site. There is c ontrast seen in the subacromial subdeltoid bursa. 2. Findings suspicious for tear of the long head of the biceps. The biceps anchor is not well visual ized. 3. Degenerative changes seen in the shoulder particularly at the acromioclavicular joint. RADIATION DOSE DELIVERED: 955.53mGy.cm Total DLP DATA REPOSITORY: All CT scans at this facility are submitted to the National Radiology Data Registry (NRDR) Dose Index Registry (DIR) with the [employer] (ACR). RADIATION OPTIMIZATION: All CT scans at this facility use at least one of these dose optimization te chniques: automated exposure control; mA and/or kV adjustment per patient size (includes targeted exa ms where dose is matched to clinical indication); or iterative reconstruction.
== END ==
PROVIDERS: PCP Physician Assistant; Visit Provider Student in an Organized Health Care Education/Training Program
DX: S46.012D Strain of muscle(s) and tendon(s) of the rotator cuff of left shoulder, subsequent encounter (principal); S46.212D Strain of muscle, fascia and tendon of other parts of biceps, left arm, subsequent encounter
CPT/HCPCS: 23350; 73040; 73201

== ENCOUNTER → 2023-10-19 10:17 | Outpatient (BNVA) | payer MEDICARE, OTHER, SELFPAY | PROVIDERS: PCP Physician Assistant; Referring Provider Physician Assistant; Visit Provider Student in an Organized Health Care Education/Training Program | DX: S46.212A Strain of muscle, fascia and tendon of other parts of biceps, left arm, initial encounter (principal); S46.012A Strain of muscle(s) and tendon(s) of the rotator cuff of left shoulder, initial encounter; X58.XXXA Exposure to other specified factors, initial encounter; M75.52 Bursitis of left shoulder; M75.42 Impingement syndrome of left shoulder | CPT/HCPCS: 99214 ==

== ENCOUNTER → 2023-11-09 08:07 | Outpatient (BNVA) | payer MEDICARE, OTHER, SELFPAY | PROVIDERS: PCP Physician Assistant; Referring Provider Physician Assistant; Visit Provider Student in an Organized Health Care Education/Training Program ==

== ENCOUNTER → 2023-11-10 00:25 | Outpatient (CLI) | payer MEDICARE, OTHER, SELFPAY ==
--- NOTE | 2023-11-10 08:00 | DI.CT_ITS ---
Exam(s) CT UPPER EXTREMITY LT CTA EXAM: CT UPPER EXTREMITY LT CTA CLINICAL HISTORY: Left wrist weak pulses, injury artery, S45.902A. TECHNIQUE: Imaging Protocol: Axial CT angiography was performed with multi-slice acquisition and mu lti-planar and/or 3D reconstructions. CONTRAST MATERIAL: Intravenous: Omnipaque 350 Contrast volume:100 mL COMPARISON: CT CT THORAX ABDOMEN CTA from 03/17/2022 CR XR SHOULDER LT COMPLETE 2+V from 09/28/2023 FINDINGS: Vascular Structures: Thoracic aorta: The visualized thoracic aorta unremarkable with out visualized atherosclerotic calcif ication. The visualized portions of the brachiocephalic and left common carotid artery are unremarka ble. There is mild atherosclerosis seen in the proximal left subclavian artery. Left subclavian artery: Mild atherosclerotic calcification is seen proximally. No evidence of dissec tion or aneurysm. No significant stenosis. Left axillary artery: No atherosclerosis. No aneurysm, occlusion or significant stenosis. Left brachial artery: No atherosclerosis. There is an abrupt 2.2 cm area of nonvisualization/occlusi on of the distal brachial artery at the level of the elbow. Collateral vessels are seen at this leve l of the elbow. Left radial artery: The radial artery reconstitutes just distal to the elbow joint. It descends dist ally and a branch passes posterior to the distal radius proximal to the radiocarpal joint. There is no evidence of a palmar branch of the radial artery. Left ulnar artery: The ulnar artery reconstitutes just distal to the elbow joint. It is thin but is visualized to the level of the palmar surface of the hand. Left anterior interosseous artery: This arteries visualized. No evidence of aneurysm, occlusion or s ignificant stenosis. Soft tissues: Unremarkable. Bones: There is an orthopedic anchor seen at the radial tuberosity. IMPRESSION: 1. There is an abrupt cut off of the distal left brachial artery measuring approximately 2.2 cm in le ngth. This may reflect prior injury or thrombosis. Collateral vessels have developed at this time l eading to reconstitution of the left radial and ulnar arteries distal to the elbow. 2. The left ulnar artery reconstitutes distal to the elbow joint. It is thin but is visualized to th e level of the palmar surface of the hand. 3. The left radial artery reconstitutes distal to the elbow joint. It descends distally and a branch passes posterior to the distal radius proximal to the radiocarpal joint. There is no evidence of a palmar branch of the radial artery. Unexpected findings RADIATION DOSE DELIVERED: 351.84mGy.cm Total DLP 351.84mGy.cm Total DLP 351.84mGy.cm Total DLP DATA REPOSITORY: All CT scans at this facility are submitted to the National Radiology Data Registry (NRDR) Dose Index Registry (DIR) with the [employer] (ACR). RADIATION OPTIMIZATION: All CT scans at this facility use at least one of these dose optimization te chniques: automated exposure control; mA and/or kV adjustment per patient size (includes targeted exa ms where dose is matched to clinical indication); or iterative reconstruction.
[2023-11-10 12:47] LABS: CREATININE 1.4 mg/dL (0.70-1.30); Estimated GFR 54.07 (mL/min/1.73m2)
[2023-11-10] MEDS: Omnipaque 350 MG/ML 100 ML BTL IJ (13:18)
[2023-11-10] MEDS: Normal Saline - Diluent 50 ML VIAL IJ (13:19)
== END ==
PROVIDERS: PCP Physician Assistant; Visit Provider Student in an Organized Health Care Education/Training Program
DX: S45 Injury of blood vessels at shoulder and upper arm level (principal); X58.XXXA Exposure to other specified factors, initial encounter
CPT/HCPCS: 73206; 82565; J3490

== ENCOUNTER 2023-11-17 08:46 | Day surgery (SDC) | payer MEDICARE, OTHER, SELFPAY ==
[2023-11-17] VITALS (33 sets, daily range): BP systolic 102–144; BP diastolic 62–108; PULSE 50–76; RESP 13–24; TEMP 36–36.6; O2SAT 89–99; BMI 29.4
--- NOTE | 2023-11-17 07:08 | PDOC.DSDIS_ITS ---
Date of service: 11/17/23 Time of Service: 14:00 Discharge Plan Disposition Patient Disposition: Home Condition: Stable Discharge Details Attending Provider: Rodríguez Lowry Primary Care Provider: Kurt Le Home Meds and New Rx's Prescriptions: New naproxen 250 mg tablet 250 - 500 mg PO BID PRN (Reason: Moderate pain) Qty: 40 0RF oxycodone 5 mg tablet 5 - 10 mg PO Q4H PRN (Reason: Moderate to severe pain) Qty: 18 0RF Continued omeprazole 20 mg capsule,delayed release(DR/EC) 40 mg PO DAILY bupropion HCl [Wellbutrin XL] 150 mg tablet extended release 24 hr 150 mg PO QAM multivitamin [Daily Multi-Vitamin] 1 EACH tablet 1 ea PO DAILY amoxicillin 500 MG capsule 2,000 mg PO PRN DENTAL magnesium oxide 400 MG tablet 400 mg PO DAILY Glucosamine Complex-MSM 1 EACH capsule 1 ea PO DAILY cholecalciferol (vitamin D3) 2,000 UNIT tablet 2,000 unit PO DAILY calcium carbonate-vitamin D3 1 EACH capsule 1 ea PO DAILY cyanocobalamin (vitamin B-12) 2,500 MCG tablet,chewable 1,000 mcg PO DAILY MEDICAL MARIJUANA Inhalation PRN 0RF thiamine HCl (vitamin B1) [Vitamin B-1] 100 MG tablet 100 mg PO DAILY lovastatin 40 MG tablet 40 mg PO HS acyclovir 400 MG tablet 800 mg PO DAILY triamcinolone acetonide 15 GM ointment 1 ea Topical DIRECTED PRN celecoxib [Celebrex] 400 MG capsule 400 mg PO DAILY duloxetine [Cymbalta] 60 MG capsule,delayed release(DR/EC) 60 mg PO DAILY aspirin [Aspir-81] 81 mg Tablet,Delayed Release (Dr/Ec) 81 mg PO DAILY sildenafil 100 mg tablet 100 mg PO DIRECTED PRN tamsulosin 0.4 mg capsule 0.8 mg PO HS quetiapine [Seroquel] 50 MG tablet 50 mg PO HS Discharge Instructions Additional Instructions: Surgery: Left shoulder arthroscopy with rotator cuff repair (supraspinatus), extensive debridement, and subacromial decompression. Activity: For 6 weeks, you should keep your arm at your side in a neutral position at all times except for physical therapy. Do not try to lift or raise your arm using your own muscles. You should use the sling whenever you are out of the house. At home it is best to remove the sling and rest the arm on a pillow at your side or support the operative side with your other hand. You may allow the arm to dangle at your side. A physical therapy prescription will be sent electronically to begin in about 3 weeks. STANDARD protocol. Prescriptions: Resume daily aspirin tomorrow morning Naproxen 250 mg take 1-2 every 12 hours with a meal as needed for moderate pain Oxycodone 5 mg take 1-2 every 4-6 hours as needed for severe pain You may use etff-jch-osmcpoh Tylenol (acetaminophen) as needed for mild pain. These pain medications may be taken all at once or in different combinations as needed. Also, recommend Colace (docusate) as a stool softener as surgery and pain medicine cause constipation. You may try pnkv-xes-rwwqmyn diphenhydramine (Benadryl) 25-50 mg nightly as a sleep aid Dressings: Remove shoulder bandage after 3 days. Leave the sticky Steri-Strips in place until they fall off or remove them after you shower. Cover the incis ions with Band-Aids or leave them open to air. You may shower after 5 days. Follow-up: 10-[address] Lowry You may take off the leg compression stockings this evening at home. You may also leave them on a few days longer if you have a history of leg swelling or edema. Let us know right away if you develop any redness, drainage, fevers, chest pain, or trouble breathing. Do not drink alcohol or drive for at least 24 hours after anesthesia. Please call the office during business hours with any questions or concerns. Stand Alone Forms: Anesthesia Discharge Inst., Lucia.Nerve Block Instructions, Adi Viramontes (DSU) Discharge Orders Discharge Orders: Discharge Order (Routine); Ordered 11/17/23 Ordered By: Robbie Delcid DS: Diagnosis Discharge Diagnosis (1) Traumatic tear of left rotator cuff: Status: Acute
--- NOTE | 2023-11-17 07:26 | ROE_ITS ---
Date of service: 11/17/23 Time of Service: 11:30 Operative Note Operative Note DATE OF PROCEDURE: 11/17/23 PRE-OP DIAGNOSIS: Left: 1. Rotator cuff tear 2. Proximal biceps rupture 3. Bursitis POST-OP DIAGNOSIS: same PROCEDURE: Left: 1. Rotator cuff repair, CPT# 28786. This involved repair of the supraspinatus using anchors and sutures to reattach the rotator cuff back to the footprint of the greater tuberosity. 2. Extensive debridement, CPT# 90065. This involved using arthroscopic hand instruments, power instruments, and radiofrequency instruments to debride biceps anchor superior labrum biceps remnant, release anterior capsular adhesions and [facility] L, debride partial subscapularis tearing, debride moderate central glenoid chondromalacia, and anterior posterior labral fraying tearing working within the glenohumeral joint anteriorly, superiorly and posteriorly. 3. Subacromial decompression with partial acromioplasty, CPT# 66245. This involved using arthroscopic power instruments and a radiofrequency wand to complete a bursectomy and smooth the undersurface of the acromion. The assistant project engineer was medically required in order to help assist in techniques above, which require positioning the arm, holding the arthroscope, and manipulating multiple instruments and sutures at the same time. This cannot be done without the help of an experienced assistant project engineer. SURGEON: Rodríguez Lowry DOG DAY CARE ATTENDANT: Robbie Delcid ANESTHESIA TYPE: Local By Surgeon, General LMA/ETT and Primary Nerve Block Refer to Anesthesia Record ESTIMATED BLOOD LOSS: 5 PATHOLOGY: none sent COMPLICATIONS: None Patient was transported to: PACU Patient's condition: stable Implants: Arthrex: 4.75mm SwiveLocks x 1 Indications: The patient was diagnosed with the above conditions and appropriately indicated for surgical intervention. Please see complete medical record for details. Findings: Exam under anesthesia: Full range of motion, no instability Glenohumeral joint: Moderate diffuse chondromalacia with moderately high-grade central chondromalacia and some loose cartilage edges. Moderate anterior and posterior labral fraying. Small biceps remnant at the superior labrum biceps anchor from prior rupture. No intra-articular biceps. Partial subscapularis tearing. Very small articular supraspinatus defect. Subacromial space: Moderate bursitis. Moderate degenerative?type supraspinatus central thinning and fraying with delaminated longitudinally oriented layers that was full-thickness through the small articular opening. Procedure Description: In the operating room, general anesthesia was induced. Bilateral shoulders were examined. The patient was positioned in the beachchair position. All bony prominences were well-padded. Preoperative antibiotics were administered. The shoulder was prepped and draped in the usual sterile fashion. The correct patient, procedure, and side of the procedure were all verified prior to incision. Starting through the posterior portal a standard complete diagnostic arthroscopy was performed of the glenohumeral joint including inspection of the long head of the biceps, anterior and superior labrum, subscapularis tendon, supraspinatus and infraspinatus tendons, and axillary recess. The glenoid and humeral head cartilage as well as the posterior labrum were inspected from an anterior viewing portal. Significant findings and interventions noted above. Of note, the biceps remnant was debrided, the anterior posterior labrum were debrided, there was capsulitis and synovitis about a partial subscapularis tear with the rotator cuff debrided, released from anterior capsule and [facility] L debrided as well. Small amount of articular supraspinatus tearing was debrided as well. Starting through the posterior portal, the arthroscope was directed into the subacromial space. A lateral 50 yard line lateral portal was created. A combination of power instruments and a radiofrequency ablator were used to debride bursitis anteriorly, posteriorly, and laterally as well as expose and smooth bone spurring on the undersurface of the acromion. The coracoacromial ligament was partially released. The bursectomy was completed viewing laterally and working from posteriorly and the rotator cuff was thoroughly inspected with findings noted above. The supraspinatus tendon tearing was probed and inspected. Given chronic tear, thinning, and delaminated layers care was taken on debridement to avoid shortening the tendon. Some of the worst superficial layers were removed. The tear did not propagate significantly more anteriorly or posteriorly. The cuff grasper was used to confirm only the small articular full-thickness opening. Decision was made to proceed with repair of the remainder of the tendon to provide the best long-term pain control and functional result despite the somewhat degenerative setting. The self retrieving scorpion suture passer was used to place a widely displaced inverted horizontal mattress FiberTape followed by a centrally placed ripstop suture tape FiberLink. These repair sutures were brought out the ASL portal. The undersized punch was used due to somewhat soft bone for irregularly sized anchor. The repair sutures were loaded with appropriate tension on a 4.75 mm bio composite suture anchor with good deployment and fixation strength. There was good reduction of the anterior posterior defect and security of the tear from medial to lateral. A small amount of the lateral most greater tuberosity cortex just at the level of the drop-off laterally cracked on anchor insertion. It was removed with the mechanical shaver. The anchor was countersunk at this level and secured on testing. No propagation of any anchor related fracture. The shoulder was drained of arthroscopic fluid. All portal sites were copiously irrigated. These incisions were closed using 3-0 Monocryl in a buried fashion and then covered with Mastisol, Steri-Strips, Xeroform, dry gauze, and ABDs. The dressings were covered and secured with Medipore tape. The operative extremity was placed into a sling for immobilization.
[2023-11-17] MEDS: Lactated Ringers 1,000 ML 30 ML IV (09:20)
--- NOTE | 2023-11-17 10:03 | ANES.PREOP_ITS ---
General Info Date of Service Date Performed: 11/17/23 Height: 6 ft 2 in Weight: 104 kg Body Mass Index (BMI): 29.4 Surgical Procedure: Operation Date: 11/17/23 10:10 Proposed Procedure Side Surgeon p Shoulder Rotator Cuff Arthroscopic w/Extensive Debridement, Subacromial Decompression Left Rodríguez Lowry MD Meds Allergies and Home Medications Allergies Allergy/AdvReac Type Severity Reaction Status Date / Time gluten AdvReac Intermediate stomach Verified 11/15/23 12:00 upset,pain Home Medication Medication Instructions Recorded acyclovir 400 mg tablet 800 mg PO DAILY 09/13/12 celecoxib 400 mg capsule (Celebrex) 400 mg PO DAILY 09/13/12 duloxetine 60 mg capsule,delayed 60 mg PO DAILY 09/13/12 release (Cymbalta) lovastatin 40 mg tablet 40 mg PO HS 09/13/12 triamcinolone acetonide 0.1 % 1 ea topical DIRECTED PRN 09/13/12 topical ointment amoxicillin 500 mg capsule 2,000 mg PO PRN DENTAL 01/16/18 calcium carbonate 600 mg-vitamin 1 ea PO DAILY 01/16/18 D3 10 mcg (400 unit) capsule cholecalciferol (vitamin D3) 50 2,000 unit PO DAILY 01/16/18 mcg (2,000 unit) tablet cyanocobalamin (vitamin B-12) 1,000 mcg PO DAILY 01/16/18 2,500 mcg chewable tablet xqsuhcgyhjw-sjg-ojaaikawb-vitC 1 ea PO DAILY 01/16/18 capsule (Glucosamine Complex-MSM capsule) magnesium oxide 400 mg (241.3 mg 400 mg PO DAILY 01/16/18 magnesium) tablet multivitamin (Daily Multi-Vitamin 1 ea PO DAILY 01/16/18 tablet) thiamine HCl (vitamin B1) 100 mg 100 mg PO DAILY 01/16/18 tablet (Vitamin B-1) omeprazole 20 mg capsule,delayed 40 mg PO DAILY 06/11/19 release aspirin 81 mg tablet,delayed 81 mg PO DAILY 01/09/20 release (Aspir-) quetiapine 50 mg tablet (Seroquel) 50 mg PO HS 01/09/20 sildenafil 100 mg tablet 100 mg PO DIRECTED PRN 01/09/20 tamsulosin 0.4 mg capsule 0.8 mg PO HS 01/09/20 bupropion HCl 150 mg 24 hr tablet, 150 mg PO QAM 02/09/23 extended release (Wellbutrin XL) naproxen 250 mg tablet 250 - 500 mg (1 - 2 x 250 mg) PO 11/17/23 BID PRN Moderate pain #40 tabs oxycodone 5 mg tablet 5 - 10 mg (1 - 2 x 5 mg) PO Q4H 11/17/23 PRN Moderate to severe pain #18 tabs Current Visit Medications: Current Medications Generic Name Dose Route Start Last Admin Trade Name Christiano PRN Reason Stop Dose Admin Ringer's Solution 1,000 mls @ 30 mls/hr 11/17/23 06:00 11/17/23 09:20 IV 12/16/23 23:59 30 mls/hr INFUSION SEAMUS Administration Cefazolin Sodium/Dextrose 2 gm in 50 mls @ 100 mls/hr 11/17/23 06:00 Ancef Duplex IVPB 11/17/23 16:00 PREOP SEAMUS Tranexamic Acid/Sodium Chloride 1,000 mg in 100 mls @ 600 mls/hr 11/17/23 06:00 IVPB 11/17/23 16:00 PREOP SEAMUS IV Miscellaneous Supplies 1 each 11/17/23 06:00 Iv Access IV 12/16/23 23:59 DIRECTED SEAMUS Oxycodone HCl 0 mg 11/17/23 07:07 Oxycodone 5 Mg Tab PO 12/17/23 07:06 Q3H PRN PRN Pain Sodium Chloride 0 ml 11/17/23 06:00 Normal Saline Flush 10 Ml Syr IV 12/16/23 23:59 PRN PRN Sodium Chloride 0 ml 11/17/23 06:00 Normal Saline 10 Ml Vial IJ 12/16/23 23:59 DIRECTED PRN Sterile Water 0 ml 11/17/23 06:00 Water,Injection,Sterile 10 Ml Vial IJ 12/16/23 23:59 DIRECTED PRN PFSH Active Problems Active Problems: Problem Status Onset Code Injury of artery of left upper extremity S45.902A Traumatic rupture of left distal biceps tendon 08/03/23 S46.212A Orthostatic dizziness R42 Impingement syndrome of left shoulder M75.42 Bursitis of left shoulder M75.52 Traumatic tear of left rotator cuff S46.012A Rupture of left proximal biceps tendon ~05/2020 S46.212A Celiac disease K90.0 Personal history of colonic polyps 01/04/13 Z86.010 Peripheral neuropathy 04/15/14 G62.9 Medical History Medical History Dysgeusia (01/31/17) Dysosmia (01/31/17) Chronic low back pain Osteoarthritis Depression Psoriasis Hypertension pt . denies Hypercholesterolemia Chronic pain Medical History Comments:: Spinal cord stimulator [facility] [employer] brand implanted 06/12/20 Surgical History Surgical History Carpal tunnel syndrome of right wrist S/P ECTR: 04/07/2022 Carpal tunnel syndrome of left wrist S/P ECTR: 04/14/2022 S/P laparoscopic fundoplication Total replacement of hip BILATERAL NERVE STIMULATOR IMPLANTATION in situ 11/15/23 MULTIPLE BACK OPERATIONS Hemorrhoidectomy Hemorrhoidal Banding Tobacco Smoking/Tobacco Use Status: Former Tobacco Use Alcohol Alcohol Intake: current Alcohol intake frequency: holidays/special occasions only Substance Use Substance use: Daily Substance use type: marijuana Details: Last [facility] 11/16/231999 Vital Signs and Lab Results Vital Signs Most Recent Vital Signs in EMR: Most Recent Vital Signs Temp Pulse Resp BP Pulse Ox 36.4 C L 73 16 134/76 99 11/17/23 08:53 11/17/23 08:53 11/17/23 08:53 11/17/23 08:53 11/17/23 08:53 Lab Results Blood Type / Crossmatch: No Data to Display Complete Blood Count: No Data to Display Complete Metabolic Panel: Creatinine 1.4 mg/dL (0.70-1.30) H 11/10/23 12:30 Est GFR (CKD-EPI 2020) 54.07 (mL/min/1.73m2) 11/10/23 12:30 Liver Function Panel: No Data to Display Coagulation Panel: No Data to Display Cardiac Panel: No Data to Display Arterial Blood Gas: No Data to Display Venous Blood Gas: No Data to Display Pancreas Panel: No Data to Display Thyroid Panel: No Data to Display Infectious Disease: No Data to Display Blood Cultures: No Data to Display Toxicology Panel: No Data to Display Imaging and Studies Imaging and Studies Study information below may be from another EMR and interpreted by another provider. Please see original notes in EMR for more complete details. EKG Summary: Conclusion Sinus rhythm...normal P axis, V-rate 60- 99 Physician: no stemi 03/13 Other Study Summary:: xray c spine reviewed and results in chart Anesthesia Assessment and Plan Anesthesia History Personal History: No History of Anesthesia Complications and Unknown Anesthesia History Family History: No Family History of Anesthesia Complications Exercise Tolerance Exercise Tolerance: Metabolic Equivalents>4 Pertinent Negatives Pertinent Negatives: No Symptoms of GERD Cardiac & Pulmonary Exam Cardiac Exam: Normal S1/S2 Heart Sounds Pulmonary Exam: Clear Bilateral Breath Sounds Implantable Cardiac Device Does patient have a Pacemaker or an ICD?: No Airway Exam Known Difficult Airway: No Mallampati Class: 2 Mouth Opening: Normal (> 3cm) Thyromental Distance: Greater than 3 cm Neck Range of Motion: Full ROM Neck Circumference: Normal Teeth Condition: Generalized Poor Dentition, Removable Dentures/Plates Upper and Removable Dentures/Plates Lower ASA Classification ASA Score: ASA 2 Emergency Case?: No NPO Status NPO Status: NPO Clears >2 hours, Solids >8 hours Anesthesia Plan Resuscitation Status: Full Code Anesthesia Technique: General Anesthesia Airway Planned: Endotracheal Tube Pain Management: Surgeon and patient request nerve block Monitors Used: Standard Monitors
[2023-11-17] MEDS: ceFAZolin 2 GM/50 ML BAG IVPB (11:47)
[2023-11-17] MEDS: TRANEXAMIC ACID/SOD. CHL. 1,000 MG/100 ML BAG 600 MG IVPB (12:05)
--- NOTE | 2023-11-17 12:18 | W.ANESNERVE ---
Nerve Block Single Injection Procedure Date and Time Date Performed: 11/17/23 Procedure Start: 11:15 Location Where Procedure Performed Procedure Location: Day Surgery Unit Reason Performed: Postoperative Analgesia Requesting Provider: Rodríguez Lowry Timeout Performed Timeout Performed: Yes Monitoring Used ECG, Blood Pressure, SpO2, ETCO2 and See EMR for corresponding vital signs Sterility Sterility: Hand Hygiene, Surgical Cap, Surgical Mask, Sterile Gloves, Eye Protection and Chlorhexidine Sedation Given During Procedure Sedation Given (Indicate Dose Given): Versed IV Dose:: 2mg IVP Patient Mental Status Patient Mental Status: Sedate with meaningful communication Nerve Block 1st Nerve Block: Laterality: Left Block Type: Interscalene Ultrasound Image Saved?: Yes Needle / Catheter Used: 80mm SonoPlex II Local Anesthetic Bolus (Indicate Dose Given): Lidocaine used for local infiltration of skin, Injected in 3-5ml increments after negative blood aspiration, Bupivacaine 0.5% Dose:: 0.5%/10cc (50mg) and Exparel Dose:: 1.33%/10cc (133mg) Additives (Indicate Dose Given): Epinephrine to make 1:200,000 (5mcg/ml) Dose:: 100mcg and Decadron Dose:: 10mg PF Ultrasound: Sterile probe cover and gel used Nerve Stimulator: Not Used Paresthesia: None Procedure Tolerated: No Complications and Patient tolerated well Procedure Outcome: Successful Performed By: Joce Paredes
[2023-11-17] MEDS: Bupivacaine 0.25% Pres-Free W/EPI 30 ML VIAL (12:21)
[2023-11-17] MEDS: EPINEPHrine 10 MG/10 ML ML (13:13)
--- NOTE | 2023-11-17 14:44 | W.ANESPOSTOP ---
Postoperative Evaluation Date, Time and Location Date Performed: 11/17/23 Time Performed: 14:45 Patient Location: Day Surgery Unit Vital Signs Most Recent Imported Vital Signs: Most Recent Vital Signs Temp Pulse Resp BP Pulse Ox 36 C L 50 L 16 109/71 97 11/17/23 14:11 11/17/23 14:11 11/17/23 14:11 11/17/23 14:11 11/17/23 14:11 Pain Score Most Recent Pain Score: Most Recent Pain Score Pain Level 0 11/17/23 14:11 Assessment Mental Status: Awake (Alert & Oriented to Patient Baseline) Airway and Respiratory Function: Patent airway with normal (patient baseline) respiratory exam Cardiovascular Function: Hemodynamically Stable Hydration Status: Adequately Hydrated Nausea & Vomiting: No Nausea or Vomiting Pain: Pt. Denies Any Pain Peripheral Nerve Block: Regional nerve block not resolved at time of post operative discharge
== END 2023-11-17 15:10 | disposition home or self-care (01) ==
LOC: SUR 08:46
PROVIDERS: PCP Physician Assistant; Visit Provider Student in an Organized Health Care Education/Training Program
PROC: (CPT 29827; principal; 2023-11-17 10:00)
DX: S46.012A Strain of muscle(s) and tendon(s) of the rotator cuff of left shoulder, initial encounter (principal); S46.212A Strain of muscle, fascia and tendon of other parts of biceps, left arm, initial encounter; X58.XXXA Exposure to other specified factors, initial encounter; M75.52 Bursitis of left shoulder
CPT/HCPCS: 29827; 29823; 29826; 76942; C9290; J0131; J0665; J0690; J1100; J1885; J2001; J2250; J2405; J2704

== ENCOUNTER → 2023-11-29 10:52 | Outpatient (BNVA) | payer MEDICARE, OTHER, SELFPAY | PROVIDERS: PCP Physician Assistant; Referring Provider Physician Assistant | DX: Z47.89 Encounter for other orthopedic aftercare (principal) ==

== ENCOUNTER → 2024-01-10 08:43 | Outpatient (BNVA) | payer MEDICARE, OTHER, SELFPAY | PROVIDERS: PCP Physician Assistant; Referring Provider Physician Assistant; Visit Provider Student in an Organized Health Care Education/Training Program | DX: S46.212D Strain of muscle, fascia and tendon of other parts of biceps, left arm, subsequent encounter; S46.012D Strain of muscle(s) and tendon(s) of the rotator cuff of left shoulder, subsequent encounter; M75.52 Bursitis of left shoulder; M75.42 Impingement syndrome of left shoulder; S45.90 Unspecified injury of unspecified blood vessel at shoulder and upper arm level; X58.XXXD Exposure to other specified factors, subsequent encounter ==

== ENCOUNTER → 2024-02-08 08:18 | Outpatient (BNVA) | payer MEDICARE, OTHER, SELFPAY | PROVIDERS: PCP Physician Assistant; Visit Provider Psychiatry & Neurology Neurology | DX: G62.89 Other specified polyneuropathies (principal); R42 Dizziness and giddiness; R20.0 Anesthesia of skin; G56.01 Carpal tunnel syndrome, right upper limb; G56.02 Carpal tunnel syndrome, left upper limb | CPT/HCPCS: 99214 ==

== ENCOUNTER 2024-03-13 15:29 | Outpatient (CLI) | payer MEDICARE, OTHER, SELFPAY ==
--- NOTE | 2024-03-13 08:30 | DI.RAD_ITS ---
Exam(s) XR KNEE LT 2V AP,LAT EXAM: XR KNEE LT 2V AP,LAT CLINICAL HISTORY: LEFT KNEE PAIN. TECHNIQUE: 2D digital imaging was performed of the left knee. Two images were obtained. And latera l views were obtained. COMPARISON: No exams were available for comparison FINDINGS: BONES: No acute fracture is present. No bony destructive lesion is seen. There is an enthesophyte at the superior patella anteriorly. JOINTS: There is mild narrowing of the femoral tibial joint. Chondrocalcinosis is seen in the latera l femoral tibial joint. Small osteophytes are seen at the posterior patella. No joint effusion is s een. No loose body. SOFT TISSUE: Normal. IMPRESSION: Mild arthrosis of the left knee. DATA REPOSITORY: RADIATION DOSE DELIVERED:
== END 2024-03-13 15:30 | disposition home or self-care (01) ==
LOC: DIORS 15:30
PROVIDERS: PCP Physician Assistant; Referring Provider Physician Assistant; Visit Provider Student in an Organized Health Care Education/Training Program
DX: M25.562 Pain in left knee (principal); S46.212D Strain of muscle, fascia and tendon of other parts of biceps, left arm, subsequent encounter; S46.012D Strain of muscle(s) and tendon(s) of the rotator cuff of left shoulder, subsequent encounter; X58.XXXD Exposure to other specified factors, subsequent encounter; M75.52 Bursitis of left shoulder; M70.52 Other bursitis of knee, left knee
CPT/HCPCS: 20610; 99214; J1010; 73560

== ENCOUNTER 2024-04-23 15:53 | Outpatient (REF) | payer MEDICARE, OTHER, SELFPAY ==
[2024-04-23 15:13] LABS: HGB 16.4 g/dL (13.5-17.5); MCH 31.8 pg (27.0-33.0); MCHC 32.8 % (32.0-36.0); MCV 97 fL (80-95); MPV 10.1 fL (8.0-11.0); Platelet Count 171 10^3/uL (130-400); RBC 5.16 10^6/uL (4.36-5.78); RDW 13.9 % (11.8-14.1); RDW-SD 50.8 fL; WBC 6.41 10^3/uL (4.4-10.8)
[2024-04-23 15:25] LABS: ALT 27 U/L (16-63); AST 22 U/L (15-37); Albumin 3.7 g/dL (3.4-5.0); Alkaline Phosphatase 81 U/L (46-116); Anion Gap 9.3 mmol/L (3-11); BUN 16 mg/dL (7-18); Bilirubin, Total 0.54 mg/dL (0.2-1.0); CO2 28.7 mmol/L (21.0-32.0); CREATININE 1.3 mg/dL (0.70-1.30); Calcium 9.4 mg/dL (8.5-10.1); Calculated LDL 108 mg/dL (<100); Chloride 107 mmol/L (98-107); Cholesterol 181 mg/dL (<200); Glucose 124 mg/dL (74-106); HDL Cholesterol 51 mg/dL (40-60); Potassium 4.3 mmol/L (3.5-5.1); Sodium 145 mmol/L (136-145); Total Protein 6.8 g/dL (6.4-8.2); Triglyceride 114 mg/dL (<150)
[2024-04-23 15:35] LABS: Hemoglobin A1C 5.7 % (<5.7)
== END 2024-04-23 15:54 | disposition home or self-care (01) ==
LOC: NCHCN 15:53
PROVIDERS: PCP Physician Assistant; Visit Provider Physician Assistant
DX: E78.5 Hyperlipidemia, unspecified (principal); R73.03 Prediabetes
CPT/HCPCS: 80053; 80061; 85027; 83036

== ENCOUNTER 2024-07-30 09:57 | Emergency (ER) | payer MEDICARE, OTHER, SELFPAY ==
[2024-07-30 10:10] VITALS: BP 132/84; PULSE 77; RESP 16; TEMP 36.7; O2SAT 96
--- NOTE | 2024-07-30 10:51 | DI.RAD_ITS ---
Exam(s) XR SHOULDER LT COMPLETE 2+V EXAM: XR SHOULDER LT COMPLETE 2+V CLINICAL HISTORY: pain s/p fall. TECHNIQUE: 2D digital imaging was performed of the left shoulder. Five images were obtained. AP, G rashey, Y-view and axillary views were obtained. COMPARISON: CR XR SHOULDER LT COMPLETE 2+V from 09/28/2023 FINDINGS: BONES: No acute fracture is present. No bony destructive lesion is seen. JOINTS: No dislocation present. SOFT TISSUE: Normal. IMPRESSION: No acute fracture or dislocation. DATA REPOSITORY: RADIATION DOSE DELIVERED:
--- NOTE | 2024-08-01 15:09 | W.ED.GENAD ---
Discharge Plan Disposition Patient Disposition: Home Condition: Stable Discharge Details Clinical Impression: Injury of left shoulder Primary Care Provider: Kurt Le ED Provider: Jessica Garcia Home Meds and New Rx's Prescriptions: Continued omeprazole 20 mg capsule,delayed release(DR/EC) 40 mg PO DAILY bupropion HCl [Wellbutrin XL] 150 mg tablet extended release 24 hr 150 mg PO QAM multivitamin [Daily Multi-Vitamin] 1 EACH tablet 1 ea PO DAILY amoxicillin 500 MG capsule 2,000 mg PO PRN DENTAL magnesium oxide 400 MG tablet 400 mg PO DAILY Glucosamine Complex-MSM 1 EACH capsule 1 ea PO DAILY cholecalciferol (vitamin D3) 2,000 UNIT tablet 2,000 unit PO DAILY calcium carbonate-vitamin D3 1 EACH capsule 1 ea PO DAILY cyanocobalamin (vitamin B-12) 2,500 MCG tablet,chewable 1,000 mcg PO DAILY MEDICAL MARIJUANA Inhalation PRN 0RF thiamine HCl (vitamin B1) [Vitamin B-1] 100 MG tablet 100 mg PO DAILY lovastatin 40 MG tablet 40 mg PO HS acyclovir 400 MG tablet 800 mg PO DAILY triamcinolone acetonide 15 GM ointment 1 ea Topical DIRECTED PRN celecoxib [Celebrex] 400 MG capsule 400 mg PO DAILY duloxetine [Cymbalta] 60 MG capsule,delayed release(DR/EC) 60 mg PO DAILY aspirin [Aspir-81] 81 mg Tablet,Delayed Release (Dr/Ec) 81 mg PO DAILY sildenafil 100 mg tablet 100 mg PO DIRECTED PRN tamsulosin 0.4 mg capsule 0.8 mg PO HS quetiapine [Seroquel] 50 MG tablet 50 mg PO HS Discharge Instructions Additional Instructions: apply voltaren or motrin gel topically over area of tenderness continue to range shoulder so it doesn't become stiff follow-up with orthopedics in 1 weeks with persistent pain return earlier should you have new or worsening complaints Referrals: Kurt Le [Primary Care Provider] - Nick Romero MD [ [facility] STAFF PHYSICIAN] - Discharge Data Discharge Date/Time-TO BE ENTERED AT DEPARTURE: 07/30/24 11:23 HPI General Date/Time Provider Initiated Documentation: 07/30/24 10:27. HPI Narrative: The patient is a 68-year-old male who presents after injuring his left shoulder on Tuesday. He is status post shoulder surgery in October 2023. He states that he tripped and fell forward onto a post. He did not land on the ground or receive any additional injuries. He has had some tenderness and difficulty with raising it since the event occurred. Specifically, he does not endorse any additional injuries or strength or sensation changes. He does not endorse any chest pain or shortness of breath. Related Data Home Medications ?Medication ?Instructions ?Recorded ?Confirmed acyclovir 400 mg tablet 800 mg PO DAILY 09/13/12 07/30/24 celecoxib 400 mg capsule (Celebrex) 400 mg PO DAILY 09/13/12 07/30/24 duloxetine 60 mg capsule,delayed 60 mg PO DAILY 09/13/12 07/30/24 release (Cymbalta) lovastatin 40 mg tablet 40 mg PO HS 09/13/12 07/30/24 triamcinolone acetonide 0.1 % 1 ea topical DIRECTED PRN 09/13/12 07/30/24 topical ointment amoxicillin 500 mg capsule 2,000 mg PO PRN DENTAL 01/16/18 07/30/24 calcium 600 mg (as 1 ea PO DAILY 01/16/18 07/30/24 carbonate)-vitamin D3 10 mcg (400 unit) capsule cholecalciferol (vitamin D3) 50 2,000 unit PO DAILY 01/16/18 07/30/24 mcg (2,000 unit) tablet cyanocobalamin (vitamin B-12) 1,000 mcg PO DAILY 01/16/18 07/30/24 2,500 mcg chewable tablet [id number]-vitC 1 ea PO DAILY 01/16/18 07/30/24 capsule (Glucosamine Complex-MSM capsule) magnesium oxide 400 mg (241.3 mg 400 mg PO DAILY 01/16/18 07/30/24 magnesium) tablet multivitamin (Daily Multi-Vitamin 1 ea PO DAILY 01/16/18 07/30/24 tablet) thiamine HCl (vitamin B1) 100 mg 100 mg PO DAILY 01/16/18 07/30/24 tablet (Vitamin B-1) omeprazole 20 mg capsule,delayed 40 mg PO DAILY 06/11/19 07/30/24 release aspirin 81 mg tablet,delayed 81 mg PO DAILY 01/09/20 07/30/24 release (Aspir-) quetiapine 50 mg tablet (Seroquel) 50 mg PO HS 01/09/20 07/30/24 sildenafil 100 mg tablet 100 mg PO DIRECTED PRN 01/09/20 07/30/24 tamsulosin 0.4 mg capsule 0.8 mg PO HS 01/09/20 07/30/24 bupropion HCl 150 mg 24 hr tablet, 150 mg PO QAM 02/09/23 07/30/24 extended release (Wellbutrin XL) Allergies Allergy/AdvReac Type Severity Reaction Status Date / Time gluten AdvReac Intermediate stomach Verified 07/30/24 10:16 upset,pain General Stated Complaint: Orthopedic MARILYNN: 4 Exam Narrative Exam Narrative: General Appearance: Normal. Vital signs: Within normal limits. HEENT: Within normal limits. Respiratory: Lungs are clear to auscultation. Back, Musculoskeletal: No cervical spine tenderness or chest wall tenderness. Extremities: Patient is tender to his left shoulder without visible evidence of trauma. He has decreased range of motion specifically in abduction and external rotation, strength seems preserved, he is neurovascularly intact. Skin: Warm and dry, no rash. Neurological: Normal. Course Vital Signs Vital signs: Vital Signs Temperature 36.7 C 07/30/24 10:10 Pulse 77 07/30/24 10:10 Respiratory Rate 16 07/30/24 10:10 Blood Pressure 132/84 07/30/24 10:10 Pulse Oximetry 96 07/30/24 10:10 Temperature 36.7 C 07/30/24 10:10 Pulse 77 07/30/24 10:10 Respiratory Rate 16 07/30/24 10:10 Blood Pressure 132/84 07/30/24 10:10 Pulse Oximetry 96 07/30/24 10:10 Oxygen Delivery Method Room Air 07/30/24 10:10 Oxygen Flow Rate 0 07/30/24 10:10 Pain Level 4 07/30/24 10:10 Medical Decision Making Imaging X-ray of left shoulder shows no evidence of acute pathology. Imaging X-ray of left shoulder shows no evidence of acute pathology. Initial Assessment: 68-year-old male with left shoulder injury post fall. ED Course: - Patient reports tenderness and difficulty with raising the left shoulder since the fall. - Examination reveals tenderness without visible trauma. - Decreased range of motion in abduction and external rotation. - Preserved strength and intact neurovascular status. - X-ray ordered and reviewed by me, showing no evidence of acute pathology. - Encouraged to follow up with orthopedics in the outpatient setting. - Advised to continue with supportive care at home and use Tylenol as needed for discomfort. - Return precautions reviewed, and patient expressed understanding. Final Assessment: Patient with left shoulder injury post fall, with no acute pathology on x-ray. Advised supportive care and follow-up with orthopedics. Clinical Impression: - Left shoulder injury. Disposition: - Follow-Up: Follow up with orthopedics in the outpatient setting. MDM Components Evaluation: - Number of Differential Diagnoses or Management Options: Left shoulder injury. - Amount and Complexity of Data Reviewed: X-ray reviewed by me, showing no evidence of acute pathology. - Risk of Complication and Morbidity or Mortality: Low risk based on current findings and treatment plan. Quality:SDOH Health Related Social Needs: No Data to Display PFSH All Active Problems (Updated 07/30/24 @ 11:12 by LISSET Reed) Injury of left shoulder (Acute) Pes anserinus bursitis of left knee (Acute) Left sciatic nerve pain (Acute) Injury of artery of left upper extremity (Acute) near distal biceps tendon repair? Traumatic rupture of left distal biceps tendon (Acute 08/03/23) Orthostatic dizziness (Acute) Impingement syndrome of left shoulder (Acute) Bursitis of left shoulder (Acute) Traumatic tear of left rotator cuff (Acute) Rupture of left proximal biceps tendon (Acute ~05/2020) Celiac disease (Acute) Personal history of colonic polyps (Acute 01/04/13) Peripheral neuropathy (Acute 04/15/14) Medical History Dysgeusia (01/31/17) Dysosmia (01/31/17) Chronic low back pain Osteoarthritis Depression Psoriasis Hypertension pt . denies Hypercholesterolemia Chronic pain Surgical History Carpal tunnel syndrome of right wrist S/P ECTR: 04/07/2022 Carpal tunnel syndrome of left wrist S/P ECTR: 04/14/2022 S/P laparoscopic fundoplication Total replacement of hip BILATERAL NERVE STIMULATOR IMPLANTATION in situ 11/15/23 MULTIPLE BACK OPERATIONS Hemorrhoidectomy Hemorrhoidal Banding Family History Mother No problems noted. Father No problems noted. Sister No problems noted. Sister No problems noted. Sister No problems noted. Sister No problems noted. Brother No problems noted. Brother No problems noted. Social History Smoking/Tobacco Use Status: Former Tobacco Use Quit Date: 05/23/87 Smoking risk assessment performed?: Yes Alcohol Intake: current Alcohol Intake frequency: holidays/special occasions only Drug use: Daily Substance use type: marijuana Household members: spouse Housing: house Number of Children: 3 current occupation: Disabled. Formerly in construction. Current gender identity: male What is your relationship status?: Panel score (0-1 are the most socially isolated patients): 1 What type of physical activity do you participate in: additional Details: pt tries to stay active Do you feel safe at home: Yes Do you feel safe in your relationship?: Yes
== END 2024-07-30 11:23 | disposition home or self-care (01) ==
PROVIDERS: Emergency Provider Physician Assistant; PCP Physician Assistant
DX: S49.82XA Other specified injuries of left shoulder and upper arm, initial encounter (principal); I10 Essential (primary) hypertension; E78.00 Pure hypercholesterolemia, unspecified; Z79.82 Long term (current) use of aspirin; Z87.891 Personal history of nicotine dependence; W01.198A Fall on same level from slipping, tripping and stumbling with subsequent striking against other object, initial encounter; Y93.89 Activity, other specified
CPT/HCPCS: 99283; 73030

== ENCOUNTER 2024-10-04 01:08 | Outpatient (CLI) | payer MEDICARE, OTHER, SELFPAY ==
--- NOTE | 2024-10-04 08:00 | DI.CT_ITS ---
Exam(s) CT UPPER EXTREMITY LT W EXAM: CT UPPER EXTREMITY LT W CLINICAL HISTORY: likely traumatic rerupture rotator cuff repair.. TECHNIQUE: Imaging Protocol: Axial computed tomography images with coronal and sagittal reformatted images were created and reviewed. COMPARISON: CT CT UPPER EXTREMITY LT W from 10/07/2023 FINDINGS: CT shoulder arthrogram was performed. There is mild patient motion artifact. Bones: There are degenerative changes seen at the acromioclavicular joint. Mild spurring is seen at the inferior aspect of the glenoid. Postsurgical changes are seen in the humeral head consistent with prior rotator cuff repair. Bony alignment is satisfactory. No cellulitic or osteomyelitic changes a re identified. There are degenerative changes seen in the visualized cervical spine. Soft Tissues: There is a full-thickness tear through the supraspinatus tendon anteriorly. There is co ntrast seen in the subacromial subdeltoid bursa. There is irregularity of the subscapularis tendon on its articular surface suspicious for partial tear. The infraspinatus and teres minor tendons appear intact. The visualized lungs are clear. Coronary artery calcification and atherosclerotic calcificati on of the thoracic aorta is noted. IMPRESSION: 1. Full-thickness tear of the supraspinatus tendon. 2. Findings suspicious for partial tear along the articular surface of the subscapularis tendon. 3. Degenerative changes seen at the acromioclavicular and glenohumeral joints. RADIATION DOSE DELIVERED: 285.67mGy.cm Total DLP 285.67mGy.cm Total DLP DATA REPOSITORY: All CT scans at this facility are submitted to the National Radiology Data Registry (NRDR) Dose Index Registry (DIR) with the [employer] ([employer]). RADIATION OPTIMIZATION: All CT scans at this facility use at least one of these dose optimization te chniques: automated exposure control; mA and/or kV adjustment per patient size (includes targeted exa ms where dose is matched to clinical indication); or iterative reconstruction.
--- NOTE | 2024-10-04 14:15 | DI.RAD_ITS ---
Exam(s) RF ARTHROGRAM RAD W CT OR MRI EXAM: RF ARTHROGRAM RAD W CT OR MRI CLINICAL HISTORY: likely traumatic rerupture rotator cuff repair,s46.012d,traumatic tear lt TECHNIQUE: 2D and realtime digital imaging was performed. CONTRAST MATERIAL: Water soluble contrast was administered. COMPARISON: No exams were available for comparison FINDINGS: Fluoroscopy was provided for Dr. Rocha during the performance of a left shoulder arthrogram. The pa tient was prepped and draped in the usual sterile fashion. Local anesthesia was administered. The rut nt was accessed using a spinal needle and confirmed under fluoroscopy. A 20 cc solution containing O mnipaque and saline was injected into the joint. Images were obtained. The patient tolerated the proc edure well. Final instructions were given to the patient and they left the department in good conditi on. IMPRESSION: Successful arthrogram under fluoroscopic guidance. The patient was advised to return to the emergency room if any signs of bleeding or infection occur. RADIATION DOSE DELIVERED: jamie Clark=2.73 mGy
[2024-10-04] MEDS: Omnipaque 300 MG/ML 10 ML BTL IJ (14:20)
[2024-10-04] MEDS: Bupivacaine 0.5% Pres-Free 10 ML VIAL IJ (14:20)
== END 2024-10-04 01:28 ==
LOC: DI 01:08
PROVIDERS: PCP Physician Assistant; Visit Provider Student in an Organized Health Care Education/Training Program
DX: S46.012D Strain of muscle(s) and tendon(s) of the rotator cuff of left shoulder, subsequent encounter (principal); X58.XXXD Exposure to other specified factors, subsequent encounter
CPT/HCPCS: 23350; 73040; 73201; J0665

== ENCOUNTER → 2024-10-10 10:14 | Outpatient (BNVA) | payer MEDICARE, OTHER, SELFPAY | PROVIDERS: PCP Physician Assistant; Referring Provider Physician Assistant; Visit Provider Student in an Organized Health Care Education/Training Program | DX: S46.212D Strain of muscle, fascia and tendon of other parts of biceps, left arm, subsequent encounter; S46.012D Strain of muscle(s) and tendon(s) of the rotator cuff of left shoulder, subsequent encounter; M75.52 Bursitis of left shoulder; M75.42 Impingement syndrome of left shoulder; S45.902A Unspecified injury of unspecified blood vessel at shoulder and upper arm level, left arm, initial encounter; M54.32 Sciatica, left side; M70.52 Other bursitis of knee, left knee; X58.XXXD Exposure to other specified factors, subsequent encounter | CPT/HCPCS: 99214 ==

== ENCOUNTER 2024-10-12 08:53 | Day surgery (SDC) | payer MEDICARE, OTHER, SELFPAY ==
[2024-10-12] VITALS (18 sets, daily range): BP systolic 104–141; BP diastolic 56–95; PULSE 70–80; RESP 14–23; TEMP 36.2–37; O2SAT 92–99; BMI 30.2
--- NOTE | 2024-10-12 07:09 | W.PM.DSUDISC ---
Date of service: 10/12/24 Discharge Plan Disposition Patient Disposition: Home Condition: Stable Discharge Details Attending Provider: Rodríguez Lowry Primary Care Provider: Kurt Le Home Meds and New Rx's Prescriptions: New naproxen 250 mg tablet 250 - 500 mg PO BID PRN (Reason: Moderate pain) Qty: 40 0RF oxycodone 5 mg tablet 5 - 10 mg PO Q4H PRN (Reason: Moderate to severe pain) Qty: 18 0RF Continued omeprazole 20 mg capsule,delayed release(DR/EC) 40 mg PO DAILY bupropion HCl [Wellbutrin XL] 150 mg tablet extended release 24 hr 150 mg PO QAM multivitamin [Daily Multi-Vitamin] 1 EACH tablet 1 ea PO DAILY amoxicillin 500 MG capsule 2,000 mg PO PRN DENTAL magnesium oxide 400 MG tablet 400 mg PO DAILY Glucosamine Complex-MSM 1 EACH capsule 1 ea PO DAILY cholecalciferol (vitamin D3) 2,000 UNIT tablet 2,000 unit PO DAILY calcium carbonate-vitamin D3 1 EACH capsule 1 ea PO DAILY cyanocobalamin (vitamin B-12) 2,500 MCG tablet,chewable 1,000 mcg PO DAILY MEDICAL MARIJUA[place] Inhalation PRN 0RF thiamine HCl (vitamin B1) [Vitamin B-1] 100 MG tablet 100 mg PO DAILY acyclovir 400 MG tablet 800 mg PO DAILY triamcinolone acetonide 15 GM ointment 1 ea Topical DIRECTED PRN celecoxib [Celebrex] 400 MG capsule 400 mg PO DAILY duloxetine [Cymbalta] 60 MG capsule,delayed release(DR/EC) 60 mg PO DAILY aspirin [Aspir-81] 81 mg Tablet,Delayed Release (Dr/Ec) 81 mg PO DAILY sildenafil 100 mg tablet 100 mg PO DIRECTED PRN tamsulosin 0.4 mg capsule 0.8 mg PO HS quetiapine [Seroquel] 50 MG tablet 50 mg PO HS Discharge Instructions Additional Instructions: Surgery: Left reverse total shoulder arthroplasty (constrained liner) with removal of hardware on 10/12/24 Activity: Do not lift anything heavier than a coffee. You should keep your arm at your side in a relatively neutral position at all times except for gentle range of motion exercises, physical therapy, and essential activities. You should use the sling whenever you are out of the house. At home it is best to remove the sling and rest the arm on a pillow at your side or support the operative side with your other hand. A physical therapy prescription will be sent electronically to start in about 3 weeks. STANDARD Reverse TSA Protocol. Resume home aspirin starting tomorrow morning Prescriptions: Naproxen 250 mg take 1 every 12 hours with a meal as needed for moderate pain Oxycodone 5 mg take 1-2 every 4-6 hours as needed for severe pain You may use [id number] Tylenol (acetaminophen) as needed for mild pain. These pain medications may be taken all at once or in different combinations as needed. Also, recommend Colace (docusate) as a stool softener as surgery and pain medicine cause constipation. You may try [id number] diphenhydramine (Benadryl) 25-50 mg nightly as a sleep aid Dressings: Leave dressing in place until follow-up. Keep clean and dry at all times. No showers please. Follow-up: 10-[address] Lowry You may take off the leg compression stockings this evening at home. You may also leave them on a few days longer if you have a history of leg swelling or edema. Please call the office during business hours with any questions or concerns. Let us know right away if you develop any redness, drainage, fevers, chest pain, or trouble breathing. Do not drink alcohol or drive for at least 24 hours after anesthesia. Discharge Orders Discharge Orders: Discharge Order (Routine); Ordered 10/12/24 Ordered By: Robbie Delcid DS: Diagnosis Discharge Diagnosis (1) Traumatic tear of left rotator cuff: Status: Acute
--- NOTE | 2024-10-12 07:34 | ROE_ITS ---
Operative Note Operative Note PRE-OP DIAGNOSIS: Left: 1. Irreparable rotator cuff tearing 2. Chronic proximal biceps rupture 3. Prior suture anchor rotator cuff repair POST-OP DIAGNOSIS: same PROCEDURE: Left: 1. Reverse total shoulder arthroplasty, CPT # 19842 2. Removal of hardware, CPT #32190 The medical support assistant was medically required as this procedure involves retraction, protection of neurovascular structures, and manipulation of multiple instruments and implants at the same time, which cannot be done without a skilled medical support assistant. SURGEON: Rodríguez Lowry [facility] NURSE PSYCHOTHERAPIST: Robbie Delcid ANESTHESIA TYPE: Local By Surgeon, General LMA/ETT and Primary Nerve Block Refer to Anesthesia Record ESTIMATED BLOOD LOSS: 300 COMPLICATIONS: None Patient was transported to: PACU Patient's condition: stable Implants: [employer] modular glenoid system baseplate 24 mm 10 degree standard full wedge augment [employer] modular glenoid system central post 30 mm [employer] modular glenoid system peripheral locking screws 36 mm inferior, 32 mm superior, 16 mm posterior, 20 mm anterior [employer] modular glenoid system glenosphere 42 +4 mm lateralized [employer] humeral stem 135 degrees size 9 [employer] suture cup size 42 posterior offset [employer] humeral insert size 42 +3 mm constrained Indications: Please see complete medical record for details. Findings: Chronic proximal biceps rupture. Intact anterior segment supraspinatus to single suture anchor with thinning and tearing more anteriorly at the interval and into the upper margin of the subscapularis and high-grade full-thickness supraspinatus tearing posterior to the repair until intact infraspinatus. Moderate glenohumeral chondromalacia, retroversion, and superior inclination. Procedure Description: In the operating room, general anesthesia was induced. The patient was positioned beachchair on the operating room table. All bony prominences were well-padded. Preoperative antibiotics were administered. The shoulder was p repped and draped in the usual sterile fashion for shoulder arthroplasty. The correct patient, procedure, and side of the procedure were all verified prior to incision. The deltopectoral approach was preinjected with 0.25% bupivacaine containing epinephrine and taken to the anterior shoulder. Care was taken to bluntly dissect the interval between the deltoid and pectoralis major muscles and to identify the cephalic vein within its fat stripe. The the vein was mobilized laterally. Subdeltoid space and conjoined tendon were freed of adhesions. The long head of the biceps tendon was identified just lateral to the lesser tuberosity. The uppermost margin of the pectoralis major tendon was released from the proximal humerus. The long head of the biceps tendon was tenodesed in situ using SutureTape in a atlmyr-gp-gxyiz fashion securing it superior margin the pectoralis major tendon. The biceps tendon was amputated and followed proximally to identify the rotator interval. A subscapularis peel was performed taking care to release the entire tendon in a full-thickness fashion from superior to inferior and lateral to medial while bringing the arm gradually into external rotation. Care was taken to avoid the axillary nerve by only working on the bone inferiorly and medially. The subscapularis was tagged using SutureTape in a Nacho-Austyn fashion and traction used confirm appropriate mobilization of the subscapularis tendon after gentle blunt dissection was used to free up the space anterior and posterior to it. The supraspinatus was identified and the intact part anteriorly to the suture anchor was debrided as the remainder of the tendon was torn to a stable infraspinatus margin. Permanent suture material from the prior speed fix repair was removed. Appropriate coagulation was achieved especially interiorly. The anatomic neck was cut using an oscillating saw with the humeral head bone brought back table in case there was a need for future bone grafting. The proximal humerus was delivered from the wound with adduction and external rotation. The proximal humeral protection plate was used to provisionally confirm suture cup and glenosphere size. Reamers were started appropriately posterior to the bicipital groove taking care to maintain in line approach with the humeral canal. Sequential reaming was done from size 5 up to size 9. Next, the broaches were sequentially used to open the proximal humerus starting with a size 5 and going up to size 9 and sunk to the appropriate depth while maintaining approximately 25 degrees retroversion. There was good metaphyseal fit and rotational control of the proximal humerus with this size. The posterior offset guide was used to ream for the suture cup. Attention was then turned to the glenoid and retractors were placed and a circumferential release performed using the long head of the biceps remnant to remove soft tissue about the glenoid rim. Care was taken inferiorly to work on bone only between 5 and 7:00 o'clock and bluntly elevate tissues inferiorly. The augment guide was placed on the glenoid and used to confirm placement and trajectory of the central guidepin. The guidepin was inserted and advanced just through the far cortex ensuring adequate central fixation length. The glenoid was prepared according to hot oiler specifications for a augmented baseplate and central post. The baseplate was impacted onto the glenoid surface. The locking guide was then used to drill and place appropriately lengthed inferior, superior, anterior, and posterior screws. The eidl-bgl-jlimzyxah reamer was used to confirm adequate peripheral reaming. The subscapularis was then assessed for excursion past the glenoid construct and although had reasonable mobility it was quite thinned and would likely be under tension limiting healing potential and external rotation so it was tenotomized. The glenosphere was applied with the rotating field assembler and then impacted to engage the Zavala taper. It was then locked with appropriate countersinking of the setscrew. The glenosphere was inspected and found to have good fit, appropriate positioning, and no soft tissue or bony impingement. Attention was then turned back to the proximal humerus. The humeral trial cup was connected. Trialing was commenced with +3 mm liner. The shoulder was reduced and taken through range of motionwhich demonstrated excellent stability and appropriate tension on the deltoid and conjoined tension. The trial components were removed from the proximal humerus. The wound was copiously irrigated with normal saline. The the proximal humeral stem and suture cup were assembled and brought over the proximal humerus. A small amount of vancomycin powder was distributed in the proximal humerus. The humeral component and suture cup were impacted into place. The trial liner was added, and the shoulder was reduced and range of motion, stability, and tension confirmed to be appropriate. The final liner was then connected, and range of motion, stability, and tension confirmed. The shoulder was copiously irrigated with Betadine and normal saline. Hemostasis was carefully obtained although there was a steady slow ooze especially from deeper and bony surfaces possibly relating to the aspirin use. The cephalic vein had a tiny pinhole tear that had been coagulated, but kept reopening on shoulder motion and trialing so the vein was tied off with 0 Vicryl. Vancomycin powder was distributed deeply about the shoulder and through subcutaneous tissues. The deltopectoral interval was approximated with 2-0 Monocryl burying the cephalic vein. Subcutaneous tissue was irrigated then closed using 2-0 Monocryl in a buried interrupted fashion. Skin was closed using 3-0 Monocryl in a buried subcuticular fashion. Skin glue was applied to the incision. A silver impregnated bandage was placed over the incision. The extremity was placed into a shoulder immobilizer. The patient awoke from anesthesia without complication and was taken to the recovery room in stable condition. Date of Procedure: 10/12/24
--- NOTE | 2024-10-12 08:20 | ANES.PREOP_ITS ---
General Info Date of Service Date Performed: 10/12/24 Height: 6 ft 2 in Weight: 106.594 kg Body Mass Index (BMI): 30.2 Surgical Procedure: Operation Date: 10/12/24 11:25 Proposed Procedure Side Surgeon p Shoulder Reverse Total Arthroplasty Left Rodríguez Lowry MD Meds Allergies and Home Medications Allergies Allergy/AdvReac Type Severity Reaction Status Date / Time gluten AdvReac Intermediate stomach Verified 10/12/24 09:01 upset,pain Home Medication ?Medication ?Instructions ?Recorded acyclovir 400 mg tablet 800 mg PO DAILY 09/13/12 celecoxib 400 mg capsule (Celebrex) 400 mg PO DAILY 09/13/12 duloxetine 60 mg capsule,delayed 60 mg PO DAILY 09/13/12 release (Cymbalta) triamcinolone acetonide 0.1 % 1 ea topical DIRECTED PRN 09/13/12 topical ointment amoxicillin 500 mg capsule 2,000 mg PO PRN DENTAL 01/16/18 calcium 600 mg (as 1 ea PO DAILY 01/16/18 carbonate)-vitamin D3 10 mcg (400 unit) capsule cholecalciferol (vitamin D3) 50 2,000 unit PO DAILY 01/16/18 mcg (2,000 unit) tablet cyanocobalamin (vitamin B-12) 1,000 mcg PO DAILY 01/16/18 2,500 mcg chewable tablet ehogqtpwvis-vnm-evxavzwar-vitC 1 ea PO DAILY 01/16/18 capsule (Glucosamine Complex-MSM capsule) magnesium oxide 400 mg (241.3 mg 400 mg PO DAILY 01/16/18 magnesium) tablet multivitamin (Daily Multi-Vitamin 1 ea PO DAILY 01/16/18 tablet) thiamine HCl (vitamin B1) 100 mg 100 mg PO DAILY 01/16/18 tablet (Vitamin B-1) omeprazole 20 mg capsule,delayed 40 mg PO DAILY 06/11/19 release aspirin 81 mg tablet,delayed 81 mg PO DAILY 01/09/20 release (Aspir-) quetiapine 50 mg tablet (Seroquel) 50 mg PO HS 01/09/20 sildenafil 100 mg tablet 100 mg PO DIRECTED PRN 01/09/20 tamsulosin 0.4 mg capsule 0.8 mg PO HS 01/09/20 bupropion HCl 150 mg 24 hr tablet, 150 mg PO QAM 02/09/23 extended release (Wellbutrin XL) naproxen 250 mg tablet 250 - 500 mg (1 - 2 x 250 mg) PO 10/12/24 BID PRN Moderate pain #40 tabs oxycodone 5 mg tablet 5 - 10 mg (1 - 2 x 5 mg) PO Q4H 10/12/24 PRN Moderate to severe pain #18 tabs Current Visit Medications: Current Medications Generic Name Dose Route Start Last Admin Trade Name Freq PRN Reason Stop Dose Admin Acidophilus/Pectin 1 cap 10/12/24 11:30 Lactobacillus Acidophilus Cap PO 10/12/24 11:31 NOW ONE Ringer's Solution 1,000 mls @ 30 mls/hr 10/12/24 06:00 IV 10/12/24 23:59 INFUSION SEAMUS Cefazolin Sodium 3,000 mg/ 100 mls @ 200 mls/hr 10/12/24 06:00 Sodium Chloride IV 10/12/24 23:59 PREOP SEAMUS Tranexamic Acid/Sodium Chloride 1,000 mg in 100 mls @ 600 mls/hr 10/12/24 06:00 IVPB 10/12/24 23:59 DIRECTED SEAMUS Cefazolin Sodium/Dextrose 1 gm in 50 mls @ 100 mls/hr 10/12/24 11:30 Ancef Duplex IVPB 10/12/24 11:59 NOW ONE IV Miscellaneous Supplies 1 each 10/12/24 06:00 Iv Access IV 10/12/24 23:59 DIRECTED SEAMUS Oxycodone HCl 0 mg 10/12/24 07:12 Oxycodone 5 Mg Tab PO 11/11/24 07:11 Q3H PRN PRN Pain Sodium Chloride 0 ml 10/12/24 06:00 Normal Saline Flush 10 Ml Syr IV 10/12/24 23:59 PRN PRN Sodium Chloride 0 ml 10/12/24 06:00 Normal Saline 10 Ml Vial IJ 10/12/24 23:59 DIRECTED PRN Sterile Water 0 ml 10/12/24 06:00 Water,Injection,Sterile 10 Ml Vial IJ 10/12/24 23:59 DIRECTED PRN PFSH Active Problems Active Problems: Problem Status Onset Code Pes anserinus bursitis of left knee Acute M70.52 Left sciatic nerve pain Acute M54.32 Injury of artery of left upper extremity Acute S45.902A Traumatic rupture of left distal biceps tendon Acute 08/03/23 S46.212A Orthostatic dizziness Acute R42 Impingement syndrome of left shoulder Acute M75.42 Bursitis of left shoulder Acute M75.52 Traumatic tear of left rotator cuff Acute S46.012A Rupture of left proximal biceps tendon Acute ~05/2020 S46.212A Celiac disease Acute K90.0 Personal history of colonic polyps Acute 01/04/13 Z86.010 Peripheral neuropathy Acute 04/15/14 G62.9 Medical History Medical History Dysgeusia (01/31/17) Dysosmia (01/31/17) Chronic low back pain Osteoarthritis Depression Psoriasis Hypertension pt . denies Hypercholesterolemia Chronic pain Medical History Comments:: Spinal cord stimulator [facility] [employer] brand implanted 06/12/20 Surgical History Surgical History Carpal tunnel syndrome of right wrist S/P ECTR: 04/07/2022 Carpal tunnel syndrome of left wrist S/P ECTR: 04/14/2022 S/P laparoscopic fundoplication Total replacement of hip BILATERAL NERVE STIMULATOR IMPLANTATION in situ 11/15/23 MULTIPLE BACK OPERATIONS Hemorrhoidectomy Hemorrhoidal Banding Tobacco Smoking/Tobacco Use Status: Former Tobacco Use Passive smoking exposure: No Alcohol Alcohol Intake: current Alcohol intake frequency: holidays/special occasions only Substance Use Substance use: Daily Substance use type: marijuana Vital Signs and Lab Results Vital Signs Most Recent Vital Signs in EMR: Temp Pulse Resp BP Pulse Ox 36.3 C L 80 18 137/91 H 99 10/12/24 09:10 10/12/24 09:10 10/12/24 09:10 10/12/24 09:10 10/12/24 09:10 Lab Results Blood Type / Crossmatch: No Data to Display Complete Blood Count: No Data to Display Complete Metabolic Panel: No Data to Display Liver Function Panel: No Data to Display Coagulation Panel: No Data to Display Cardiac Panel: No Data to Display Arterial Blood Gas: No Data to Display Venous Blood Gas: No Data to Display Pancreas Panel: No Data to Display Thyroid Panel: No Data to Display Infectious Disease: No Data to Display Blood Cultures: No Data to Display Toxicology Panel: No Data to Display Imaging and Studies Imaging and Studies Study information below may be from another EMR and interpreted by another provider. Please see original notes in EMR for more complete details. EKG Summary: Conclusion Sinus rhythm...normal P axis, V-rate 60- 99 Physician: radha stemi 03/13 Other Study Summary:: xray c spine reviewed and results in chart Anesthesia Assessment and Plan Anesthesia History Personal History: No History of Anesthesia Complications Family History: No Family History of Anesthesia Complications Exercise Tolerance Exercise Tolerance: Metabolic Equivalents>4 Cardiac & Pulmonary Exam Cardiac Exam: Normal S1/S2 Heart Sounds Pulmonary Exam: Clear Bilateral Breath Sounds Implantable Cardiac Device Does patient have a Pacemaker or an ICD?: No Airway Exam Known Difficult Airway: No Mallampati Class: 2 Mouth Opening: Normal (> 3cm) Thyromental Distance: Greater than 3 cm Neck Range of Motion: Full ROM Neck Circumference: Normal Teeth Condition: Generalized Poor Dentition, Removable Dentures/Plates Upper and Removable Dentures/Plates Lower ASA Classification ASA Score: ASA 3 Emergency Case?: No NPO Status NPO Status: NPO Clears >2 hours, Solids >8 hours Anesthesia Plan Resuscitation Status: Full Code Anesthesia Technique: General Anesthesia Airway Planned: Endotracheal Tube Pain Management: Surgeon and patient request nerve block Monitors Used: Standard Monitors Preoperative Comments:: 68 yo male for reverse total shoulder. No health history change since his last procedure. Sig PMHx: HTN (losartan), GERD (omeprazole), s/p lap fundoplication, dizziness, peripheral neuropathy, depression (bupropion, cymbalta, seroquel), chronic pa in/LBP (nerve stimulator). former smoker. ECG: sinus. Arm CT: abrupt cut off distal left brachial artery. Collateral vessels have formed. no evidence of ceballos branch of radial artery left. Previous Anes: - shoulder, glide 3 grade 1, masked with OPA. ISB with midaz 2 mg, 10/10 exparel/bupiv 0.5%. 0/10 on post op note. - elbow, mac 3 grade 1, masked with OPA. supracalv, midaz 2 mg, 10/10 exparel/bup, 0/10 on post op note. - ECTR, fent, dexmed, prop, no issues.
[2024-10-12] MEDS: Lactated Ringers 1,000 ML 30 ML IV (09:30)
--- NOTE | 2024-10-12 11:00 | DI.RAD_ITS ---
Exam(s) XR SHOULDER LT COMPLETE 2+V EXAM: XR SHOULDER LT COMPLETE 2+V INDICATION: shoulder arthritis. COMPARISON: CT CT UPPER EXTREMITY LT W from 10/04/2024 TECHNIQUE: 2D digital imaging was performed. Three views. Portable. FINDINGS: Status post placement of reverse shoulder prosthesis. The alignment appears satisfactory. There is residual postsurgical air in the soft tissues. DATA REPOSITORY: RADIATION DOSE DELIVERED:
--- NOTE | 2024-10-12 11:38 | W.ANESNERVE ---
Nerve Block Single Injection Procedure Date and Time Date Performed: 10/12/24 Procedure Start: 11:16 Location Where Procedure Performed Procedure Location: Day Surgery Unit Reason Performed: Postoperative Analgesia Requesting Provider: Rodríguez Lowry Timeout Performed Timeout Performed: Yes Monitoring Used ECG, Blood Pressure and SpO2 Sterility Sterility: Hand Hygiene, Surgical Cap, Surgical Mask, Sterile Gloves and Chlorhexidine Sedation Given During Procedure Sedation Given (Indicate Dose Given): Versed IV Dose:: 2 mg Patient Mental Status Patient Mental Status: Sedate with meaningful communication Nerve Block 1st Nerve Block: Laterality: Left Block Type: Interscalene Ultrasound Image Saved?: Yes Needle / Catheter Used: 100mm SonoPlex II Local Anesthetic Bolus (Indicate Dose Given): Bupivacaine 0.5% Dose:: 10 mL and Exparel Dose:: 10 mL Additives (Indicate Dose Given): None Ultrasound: Sterile probe cover and gel used Nerve Stimulator: Supplement to Ultrasound use and No twitch or parasthesia noted < 0.5 mA (0.6) Paresthesia: None Procedure Tolerated: No Complications Procedure Outcome: Successful Performed By: Alok Cowart
[2024-10-12] MEDS: ceFAZolin 3,000 MG in Normal Saline 100 ML 200 MG IV (12:09)
[2024-10-12] MEDS: TRANEXAMIC ACID/SOD. CHL. 1,000 MG/100 ML BAG 600 MG IVPB (12:14)
[2024-10-12] MEDS: Bupivacaine 0.25% Pres-Free W/EPI 30 ML VIAL (12:31)
[2024-10-12] MEDS: Vancomycin 1,000 MG VIAL 1000 MG (12:57)
--- NOTE | 2024-10-12 15:07 | W.ANESPOSTOP ---
Postoperative Evaluation Date, Time and Location Date Performed: 10/12/24 Time Performed: 15:00 Patient Location: PACU Vital Signs Most Recent Imported Vital Signs: Most Recent Vital Signs Temp Pulse Resp BP Pulse Ox 36.5 C 72 17 121/63 98 10/12/24 15:00 10/12/24 15:01 10/12/24 15:01 10/12/24 15:00 10/12/24 15:01 Pain Score Most Recent Pain Score: Most Recent Pain Score Pain Level 5 10/12/24 14:57 Assessment Mental Status: Awake (Alert & Oriented to Patient Baseline) Airway and Respiratory Function: Patent airway with normal (patient baseline) respiratory exam Cardiovascular Function: Hemodynamically Stable Hydration Status: Adequately Hydrated Nausea & Vomiting: No Nausea or Vomiting Pain: Pain is Moderate or Severe Postoperative Pain Management: Pain being addressed with medication Peripheral Nerve Block: Regional nerve block not resolved at time of post operative discharge
[2024-10-12] MEDS: Lactobacillus Acidophilus CAP 1 CAP PO (15:34)
[2024-10-12] MEDS: ceFAZolin 1 GM/50 ML BAG IVPB (15:35)
== END 2024-10-12 16:30 | disposition home or self-care (01) ==
LOC: SUR 08:53
PROVIDERS: PCP Physician Assistant; Visit Provider Student in an Organized Health Care Education/Training Program
PROC: (CPT 23472; principal; 2024-10-12 11:15)
DX: S46.012D Strain of muscle(s) and tendon(s) of the rotator cuff of left shoulder, subsequent encounter (principal); X58.XXXD Exposure to other specified factors, subsequent encounter; S46.112D Strain of muscle, fascia and tendon of long head of biceps, left arm, subsequent encounter; G89.18 Other acute postprocedural pain
CPT/HCPCS: 23472; 20680; 64415; 73030; J0131; J0665; J0666; J0690; J1100; J1805; J1885; J2250; J2405; J2704; J3010; J3370

== ENCOUNTER 2024-10-24 10:33 | Outpatient (CLI) | payer MEDICARE, OTHER, SELFPAY ==
--- NOTE | 2024-10-24 10:00 | DI.RAD_ITS ---
Exam(s) XR SHOULDER LT COMPLETE 2+V EXAM: XR SHOULDER LT COMPLETE 2+V CLINICAL HISTORY: F/U LEFT RTSA. TECHNIQUE: 2D digital imaging was performed. Two images were obtained. Y and Grashey views were obt ained. COMPARISON: CR XR SHOULDER LT COMPLETE 2+V from 10/12/2024 FINDINGS: BONES: There are stable post operative changes of a left reverse total shoulder arthroplasty present. No fracture or dislocation. JOINTS: The orthopedic hardware is in good position. No evidence of hardware loosening. SOFT TISSUE: Normal. IMPRESSION: Stable left reversed total shoulder arthroplasty. DATA REPOSITORY: RADIATION DOSE DELIVERED:
== END 2024-10-24 10:34 | disposition home or self-care (01) ==
LOC: DIORS 10:33
PROVIDERS: PCP Physician Assistant; Referring Provider Physician Assistant; Visit Provider Student in an Organized Health Care Education/Training Program
DX: Z47.1 Aftercare following joint replacement surgery (principal); Z96.612 Presence of left artificial shoulder joint
CPT/HCPCS: 99024; 73030

== ENCOUNTER → 2024-12-19 08:24 | Outpatient (BNVA) | payer MEDICARE, OTHER, SELFPAY | PROVIDERS: PCP Physician Assistant; Referring Provider Physician Assistant; Visit Provider Physician Assistant | DX: Z47.1 Aftercare following joint replacement surgery (principal); Z96.612 Presence of left artificial shoulder joint | CPT/HCPCS: 99024 ==

== ENCOUNTER → 2025-02-06 08:11 | Outpatient (BNVA) | payer MEDICARE, OTHER, SELFPAY | PROVIDERS: PCP Physician Assistant; Referring Provider Physician Assistant; Visit Provider Psychiatry & Neurology Neurology | DX: G62.89 Other specified polyneuropathies (principal); R42 Dizziness and giddiness; R20.0 Anesthesia of skin; G56.03 Carpal tunnel syndrome, bilateral upper limbs; I10 Essential (primary) hypertension | CPT/HCPCS: 99214 ==

== ENCOUNTER 2025-02-20 09:42 | Outpatient (CLI) | payer MEDICARE, OTHER, SELFPAY ==
--- NOTE | 2025-02-20 08:00 | DI.RAD_ITS ---
Exam(s) XR SHOULDER LT COMPLETE 2+V EXAM: XR SHOULDER LT COMPLETE 2+V CLINICAL HISTORY: F/U LEFT RTSA. TECHNIQUE: 2D digital imaging was performed. Three views. COMPARISON: CR XR SHOULDER LT COMPLETE 2+V from 10/24/2024 FINDINGS: BONES: No acute fracture is present. No bony destructive lesion is seen. JOINTS: No dislocation present. There is a reverse shoulder prosthesis. The alignment is unchanged. SOFT TISSUE: Normal. IMPRESSION: Stable appearance is left shoulder prosthesis. DATA REPOSITORY: RADIATION DOSE DELIVERED:
== END 2025-02-20 09:43 | disposition home or self-care (01) ==
LOC: DIORS 09:42
PROVIDERS: PCP Physician Assistant; Referring Provider Physician Assistant; Visit Provider Student in an Organized Health Care Education/Training Program
DX: Z47.1 Aftercare following joint replacement surgery (principal); Z96.612 Presence of left artificial shoulder joint
CPT/HCPCS: 99213; 73030

== ENCOUNTER 2025-04-17 09:56 | Outpatient (REF) | payer MEDICARE, OTHER, SELFPAY ==
[2025-04-17 18:14] LABS: HCT 48.7 % (40.0-50.0); HGB 16.2 g/dL (13.5-17.5); MCH 30.5 pg (27.0-33.0); MCHC 33.3 % (32.0-36.0); MCV 92 fL (80-95); MPV 10.2 fL (8.0-11.0); Platelet Count 212 10^3/uL (130-400); RBC 5.31 10^6/uL (4.36-5.78); RDW 14.6 % (11.8-14.1); RDW-SD 49.7 fL; WBC 5.26 10^3/uL (4.4-10.8)
[2025-04-17 18:36] LABS: Hemoglobin A1C 5.6 % (<5.7)
[2025-04-17 18:42] LABS: ALT 25 U/L (10-49); AST 31 U/L (<34); Albumin 4.5 g/dL (3.2-5.0); Alkaline Phosphatase 88 U/L (46-116); Anion Gap 7 mmol/L (3-11); BUN 25 mg/dL (9-23); Bilirubin, Total 0.70 mg/dL (0.2-1.2); CO2 25.0 mmol/L (20.0-31.0); Calcium 10.1 mg/dL (8.3-10.6); Chloride 107 mmol/L (98-107); Cholesterol 166 mg/dL (<200); Glucose 140 mg/dL (74-106); HDL Cholesterol 46 mg/dL (>40); Potassium 4.1 mmol/L (3.5-5.1); Sodium 139 mmol/L (136-145); Total Protein 7.2 g/dL (5.7-8.2)
[2025-04-17 22:15] LABS: PSA, Screening 15.4 ng/mL (<=6.5)
== END 2025-04-17 09:57 | disposition home or self-care (01) ==
LOC: NCHCN 09:56
PROVIDERS: PCP Physician Assistant; Visit Provider Physician Assistant
DX: E78.5 Hyperlipidemia, unspecified (principal); R73.03 Prediabetes; R97.20 Elevated prostate specific antigen [PSA]
CPT/HCPCS: 80053; 80061; 84153; 85027; 83036

== ENCOUNTER 2025-05-22 16:32 | Outpatient (REF) | payer MEDICARE, OTHER, SELFPAY | END 2025-05-22 16:33 | disposition home or self-care (01) | LOC: NCHCN 16:32 | PROVIDERS: PCP Physician Assistant; Visit Provider Physician Assistant | DX: R97.20 Elevated prostate specific antigen [PSA] (principal) | CPT/HCPCS: 84154 ==